=== PATIENT | female | born 1970 | race Caucasian/White ===

== ENCOUNTER 2018-08-19 05:20 | Day surgery (SDC) | payer BC, SELFPAY ==
[2018-08-06 15:29] VITALS: BP 110/71; PULSE 61; RESP 16; TEMP 37.2; O2SAT 100; BMI 22.6
--- NOTE | 2018-08-06 15:48 | SDCEKG_ITS ---
Test Reason : Blood Pressure : / mmHG Vent. Rate : 059 BPM Atrial Rate : 059 BPM P-R Int : 120 ms QRS Dur : 082 ms QT Int : 452 ms P-R-T Axes : 086 085 027 degrees QTc Int : 447 ms Sinus bradycardia Possible Left atrial enlargement Borderline ECG Confirmed by LIZ MATIAS, MILADIS ([id number]), offline editor MIGUEL A PACHECO ([id number]) on 08/11/2018 8:55:30 AM Referred By: Bryant Nathan Confirmed By:MILADIS HILL MD
[2018-08-06 16:19] LABS: Absolute Lymphocyte Count 1.32 X10^3/ul (0.83-4.51); Basophil# 0.02 X10^3/uL; Basophil% 0.4 % (0-1); Eosinophil# 0.05 X10^3/uL; Eosinophils% 1.1 % (0-5); Hematocrit 37.4 % (37-47); Hemoglobin 12.6 g/dl (12.0-15.0); Lymphocyte # 1.32 X10^3/ul (4.0); Lymphocyte % 28.1 % (19-41); Mean Corp Hgb Conc 33.7 g/gl (32-36); Mean Corpuscular Hgb 30.1 pg (27.0-32.0); Mean Corpuscular Volume 89.5 fL (81-99); Monocyte# 0.33 X10^3/uL; Neutrophil # 2.96 X10^3/uL (2.7-7.7); Neutrophil % 63.2 % (47-70); Platelet Count 179 K/mm3 (150-450); RBC Distribution Width SD 42.2 fl (35.1-43.9); Red Blood Count 4.18 M/mm3 (4.2-5.4); White Blood Count 4.7 K/mm3 (4.4-11.0)
[2018-08-06 16:21] LABS: POSITIVE COUNT NO; POSITIVE DIFFERENTIAL NO; POSITIVE MORPHOLOGY NO
[2018-08-06 16:50] LABS: Anion Gap 9 (5-15); BUN 17 mg/dL (7-18); BUN/Creat Ratio 21.3 RATIO (10-20); Calcium,Total 8.8 mg/dL (8.5-10.1); Chloride 108 mmol/L (98-107); EST Glomerular Filtration Rate 82 mL/min (>60); Est Glom Filt Rate - Afr Amer 99 mL/min (>60); Estimated Creatinine Clearance 84.54 ml/min; Glucose 104 mg/dL (74-106); Potassium 3.5 mmol/L (3.5-5.1); Sodium Level 143 mmol/L (136-145)
--- NOTE | 2018-08-14 12:11 | CASEMGMT ---
Call placed to patient to discuss discharge needs after upcoming surgery. Patient plans to return home and will have someone with her for the 1st week post-op. Outpatient physical therapy is set up and patient will have assistance with transportation for the 1st week. Patient has a walker and plans to purchase a shower seat and toilet riser this weekend. There's a bed and bath on the same level per patient. Depending on which entrance patient uses, there are 1 or 9 steps to enter home. Patient reports that she will not be staying overnight unless something drastic happens; informed patient that if she stays overnight, RN-CM will likely follow up for any further discharge needs patient may have. Mechelle Merchant LPN Clinical Support
[2018-08-19] VITALS (8 sets, daily range): BP systolic 95–114; BP diastolic 51–78; PULSE 45–62; RESP 16–18; TEMP 36.2–36.7; O2SAT 96–100; BMI 22.6
[2018-08-19 05:55] LABS: Internal QC Validated? YES +Cl - CLEAR BKGD; Pregnancy, Urine Negative Negative
[2018-08-19] MEDS: Gabapentin 600 MG Tablet PO (06:00)
[2018-08-19] MEDS: Celecoxib 200 MG Capsule 400 MG PO (06:00)
[2018-08-19] MEDS: Acetaminophen 500 MG Tablet 1000 MG PO (06:01)
[2018-08-19 06:05] LABS: Bedside Glucose 70 mg/dL (70-110)
[2018-08-19] MEDS: Magnesium Sulfate 4gm/100mL 4 GM/100 ML IV.SOLN. IV (06:31)
[2018-08-19] MEDS: Scopolamine 1mg/72hr Patch 1 PATCH TD (06:52)
--- NOTE | 2018-08-19 07:15 | RAD_ITS ---
STUDY: X-RAY - PELVIS AND LEFT HIP REASON FOR EXAM: Female, 47 years old. Left total replacement. TECHNIQUE: 5 coned-down intraoperative views of the pelvis and hip. COMPARISON: None. FINDINGS: Intraoperative imaging provided for left total hip placement. RAD/Hip 1 view with Pelvis IMPRESSION: Intraoperative imaging provided for left total hip replacement. Electronically Signed: Parminder Barrera, at 13:27 EDT , Service support ,
[2018-08-19] MEDS: Cefazolin 2 GM in 0.9% Normal Saline 100 ML IV (07:32)
--- NOTE | 2018-08-19 09:32 | PCM.OPRPT ---
Report of Operation Date of Procedure: 08/19/18 Pre-Operative Diagnosis: Left hip posttraumatic osteoarthritis, sequela previous acetabular fracture Post-Operative Diagnosis: Left hip posttraumatic osteoarthritis, sequela previous acetabular fracture Surgery/Procedure Performed:: Conversion previous hip surgery to total hip replacement Description of Surgical Findings:: Stable hip equal leg lengths personal care home administrator: Julio Felix Type of Anesthesia:: General Anesthesiologist: Ronal Mehta Special Medications: 2 g Ancef, 1 g TXA at incision, 1 g TXA closure, 10 mg Decadron, joint cocktail (5 mg Duramorph, 30 mL of 0.5% Ropivicaine, 1000 units of epinephrine, 30 mg of Toradol), 2 g Ancef again at completion of case Specimen's removed: Bony cuts Estimated Blood Loss (mL): 300 mL Fluids Replaced: 1500 L crystalloid Description of Procedure: Components used: 1. Accolade 2 [place] femoral stem size 5 127? 2. Tiffany trident 2 acetabular shell size 54 mm 3. [place] X3 polyethylene E 4. [place] Biolox delta 36mm, +5mm femoral head Brief history operative indications: 47 yo f who failed conservative measures for their hip post traumatic osteoarthritis, post traumatic osteoarthritis sequela from previous left acetabular fracture with open reduction internal fixation. X-rays were consistent with osteoarthritis including joint space narrowing, osteophyte formation and subchondral cysts. She also had previous acetabular hardware. CT scan was done to ensure this would not interfere with surgery. Total hip replacement was discussed with the patient with risks and benefits including but not limited to blood loss, DVTs, PEs, neurovascular damage, dislocation, general risks of anesthesia including loss of life. Patient demonstrated an understanding medical clearance is obtained the patient was consented for surgery. Procedure: On the date of procedure the patient's l hip was marked in the preoperative area. Patient was then taken back to the operating room where anesthesia assumed control of the C-spine and airway and administered anesthetic. Patient was transferred to the operating table and placed in the supine position. The hips were placed at the break of the bed and a sacral bump was placed. The L lower extremity was then prepped out in a sterile fashion using chlorhexidine while the surgeon scrubbed. The PA was vital in the positioning of the patient. Upon reentering the room the L lower extremity was draped in the standard orthopedic fashion and the incision was marked. A timeout was called and everyone agreed upon the side, the site, the procedure be performed, antibody given, and patient's identity. At this time incision was made through skin, subcutaneous tissue, and fat down to fascia. The fascia was then incised and the TFL was retracted laterally. A retractor was placed on the lateral border of the femoral neck. Attention was directed to the inferior portion of the approach and all crossing vessels were identified and appropriately coagulated. A retractor was then placed on the medial portion of the femoral neck. The anterior capsule was then cleared of all soft tissue and then H shaped capsulotomy was made. The retractors were then placed inside the capsule. The femoral neck was identified and a cleanup cut was made. At this time a power corkscrew was used to remove the femoral head. Attention was then turned toward the acetabulum where the soft tissues were appropriately retracted and the acetabulum was sequentially reamed to 54 mm. During acetabular reaming acetabular hardware did not impose upon our surgery. A 54 mm cup was then selected and impacted into place. Acetabular liner was impacted into place and locking mechanism was verified. The position of the acetabular cup was then verified under live fluoroscopy. Attention was then turned to the femur. Soft tissue releases on the medial and lateral femoral neck were appropriately done, the leg was externally rotated and lateralized. A Davis retractor was placed medially and proximally to the greater trochanter this allowed appropriate visualization and exposure of the femoral canal. Ron[place] was then used to remove excess lateral bone. A canal finder and entry broach were used to open the proximal canal. Once we verified we were down the femoral canal we subsequently broached up to a size 5 femur. The appropriate neck was placed in the previously selected head was trialed with a +5 mm neck. Traction was pulled and the hip was reduced with internal rotation. Once it was appropriately reduced and stability was checked. There was minimal shuck, equal leg lengths and appropriate stability with hyperextension and external rotation as well as with 90? flexion and internal rotation. Fluoroscopy was then also used to verify the position of the components and leg lengths using the contralateral side for comparison. The trial components were then dislocated the proximal femur was again exposed and the components were removed from the wound. The final components were verified and opened. The wound was copiously irrigated out with normal saline. The acetabulum was checked for any residual debris. The final components were placed and impacted. Traction and internal rotation were again used to reduce the hip. After adequate reduction the hip remained stable with appropriate leg lengths. The final components were once again checked with live fluoroscopy and were found to be satisfactory. The wound was then copiously irrigated with normal saline once more, and hemostasis was obtained. Closure was then done using #1 Vicryl runner to close the fascia. A 2-0 vicryl interuppted sutures were used to close the subcutaneous skin. A 3-0 Monocryl and Steri-Strips were used for final skin closure. A Silverlon dressing was placed. Patient was awakened by anesthesia and transferred to [facility]. Patient was then transferred to the PACU for recovery. Postoperative plan: Patient will get 1 more dose of antibiotics before discharge. Patient will get physical therapy in the PACU and will be weight-bear as tolerated, and will be discharged home today if meets criteria. Patient will follow up in office in 2 weeks for a wound check and x-rays. Grafts/Implants Used: Tiffany Accolade 2, Trident 2 - Complications No intraoperative complications - Admit VTE Documentation VTE Present on Admission: No VTE Mechan Device Prophylaxis: SCD's, Thigh High KATE Hose VTE Pharm Prophylaxis ordered?: Yes
[2018-08-19] MEDS: Lactated Ringers 1,000 ML 999 ML IV (09:56)
--- NOTE | 2018-08-19 10:35 | RAD_ITS ---
STUDY: X-RAY - PELVIS AND LEFT HIP REASON FOR EXAM: Female, 47 years old. Left hip replacement. TECHNIQUE: 2 views of the pelvis and hip. COMPARISON: Comparison is made with prior examination done earlier today. FINDINGS: Status post left hip replacement. There is good alignment. RAD/Hip Min 2 Views (Portable) IMPRESSION: Status post left hip replacement. Electronically Signed: Parminder Barrera, at 13:31 EDT , Service support ,
[2018-08-19] MEDS: Lactated Ringers 1,000 ML 125 ML IV (11:10)
[2018-08-19] MEDS: oxyCODONE 5 MG Tablet PO (11:50)
[2018-08-19] MEDS: Cefazolin 1 GM/50 ML BAG IV (14:50)
== END 2018-08-19 15:58 | disposition home or self-care (01) ==
LOC: SDC 05:21 → AC 05:21
PROVIDERS: Anesthesiology; Family Provider Family Medicine; PCP Family Medicine; Referring Provider Specialist; Visit Provider Specialist
PROC: (CPT 27284; principal; 2018-08-19 06:50)
DX: M16.52 Unilateral post-traumatic osteoarthritis, left hip (principal); S32.402S Unspecified fracture of left acetabulum, sequela; V89.2XXS Person injured in unspecified motor-vehicle accident, traffic, sequela; Z96.642 Presence of left artificial hip joint; M06.9 Rheumatoid arthritis, unspecified; Z79.899 Other long term (current) drug therapy
CPT/HCPCS: 01214; 27132; 73501; 73502; 76000; 80048; 81025; 82962; 85025; 87077; 87081; 93005; 97162; C1776; J7120; A4216; J2405

== ENCOUNTER → 2022-03-15 | Outpatient (CLI) | payer OTHER, SELFPAY ==
[2022-03-20 16:09] LABS: Red Blood Cell Count Test/G6PD 4.41 x10E6/uL (3.77-5.28)
[2022-03-20 17:31] LABS: G6PD Quant Test 262 (127-427)
== END | disposition home or self-care (01) ==
PROVIDERS: PCP Family Medicine; Referring Provider Internal Medicine Rheumatology; Visit Provider Internal Medicine Rheumatology
DX: M05.79 Rheumatoid arthritis with rheumatoid factor of multiple sites without organ or systems involvement (principal); F32.89 Other specified depressive episodes; Z79.899 Other long term (current) drug therapy
CPT/HCPCS: 36415; 82955

== ENCOUNTER → 2023-11-06 | Outpatient (CLI) | payer OTHER, SELFPAY ==
[2023-11-06 17:36] LABS: Absolute Lymphocyte Count 2.07 X10^3/uL (0.83-4.51); Basophil# 0.06 X10^3/uL; Eosinophil# 0.18 X10^3/uL; Eosinophils% 3.1 % (0-5); Hematocrit 35.8 % (37-47); Hemoglobin 11.4 g/dL (12.0-15.0); Lymphocyte # 2.07 X10^3/ul (0.83-4.51); Lymphocyte % 35.4 % (19-41); Mean Corp Hgb Conc 31.8 g/dL (32-36); Mean Corpuscular Hgb 29.1 pg (27.0-32.0); Mean Corpuscular Volume 91.3 fL (81-99); Mean Platelet Vol. 11.4 fl (6.2-12.0); Monocyte# 0.56 X10^3/uL; Monocyte% 9.6 % (0-10); NRBC Flagged by Analyzer 0 % (0-5); Neutrophil # 2.97 X10^3/uL (2.7-7.7); Neutrophil % 50.7 % (47-70); Platelet Count 218 K/mm3 (150-450); RBC Distribution Width CV 14.7 % (11.6-14.6); RBC Distribution Width SD 49.1 fl (35.1-43.9); Red Blood Count 3.92 M/mm3 (4.2-5.4); White Blood Count 5.9 K/mm3 (4.4-11.0)
[2023-11-06 18:22] LABS: ALB/GLOB Ratio 1.1 RATIO (0.9-2.4); AST(SGOT) 41 U/L (15-37); Alanine Aminotransfer ALT/SGPT 36 U/L (13-56); Albumin, Serum 3.7 g/dL (3.2-5.0); Alkaline Phosphatase 59 U/L (45-117); Anion Gap 3 (5-15); BUN 21 mg/dL (7-18); BUN/Creat Ratio 21.4 RATIO (10-20); Calcium,Total 8.7 mg/dL (8.5-10.1); Chloride 108 mmol/L (98-107); Creatinine, Serum 0.98 mg/dL (0.55-1.02); EST Glomerular Filtration Rate 63 mL/min (>60); Est Glom Filt Rate - Afr Amer 76 mL/min (>60); Globulin 3.4 g/dL (2.2-4.2); Glucose 90 mg/dL (74-106); Potassium 3.8 mmol/L (3.5-5.1); Protein, Total 7.1 g/dL (6.4-8.2); Sodium Level 139 mmol/L (136-145)
== END | disposition home or self-care (01) ==
LOC: MTLAB 16:41
PROVIDERS: PCP Family Medicine; Referring Provider Internal Medicine Rheumatology; Visit Provider Internal Medicine Rheumatology
DX: M05.79 Rheumatoid arthritis with rheumatoid factor of multiple sites without organ or systems involvement (principal); Z79.899 Other long term (current) drug therapy
CPT/HCPCS: 36415; 80053; 85025

== ENCOUNTER → 2024-02-05 | Outpatient (CLI) | payer OTHER, SELFPAY ==
[2024-02-05 17:55] LABS: Absolute Lymphocyte Count 1.82 X10^3/uL (0.83-4.51); Absolute Neutrophil Count 2.8 X10^3/uL (2.0-7.7); Basophil# 0.05 X10^3/uL; Basophil% 0.9 % (0-1); Eosinophil# 0.19 X10^3/uL; Eosinophils% 3.4 % (0-5); Hematocrit 37.2 % (37-47); Hemoglobin 12.2 g/dL (12.0-15.0); Lymphocyte # 1.82 X10^3/ul (0.83-4.51); Mean Corp Hgb Conc 32.8 g/dL (32-36); Mean Corpuscular Hgb 29.7 pg (27.0-32.0); Mean Corpuscular Volume 90.5 fL (81-99); Mean Platelet Vol. 11.7 fl (6.2-12.0); Monocyte# 0.69 X10^3/uL; Monocyte% 12.5 % (0-10); NRBC Flagged by Analyzer 0 % (0-5); Neutrophil # 2.75 X10^3/uL (2.7-7.7); Neutrophil % 49.8 % (47-70); Platelet Count 199 K/mm3 (150-450); RBC Distribution Width SD 42.9 fl (35.1-43.9); Red Blood Count 4.11 M/mm3 (4.2-5.4); White Blood Count 5.5 K/mm3 (4.4-11.0)
[2024-02-05 18:26] LABS: ALB/GLOB Ratio 1.2 RATIO (0.9-2.4); AST(SGOT) 34 U/L (15-37); Alanine Aminotransfer ALT/SGPT 30 U/L (13-56); Albumin, Serum 3.8 g/dL (3.2-5.0); Alkaline Phosphatase 54 U/L (45-117); Anion Gap 4 (5-15); BUN 17 mg/dL (7-18); BUN/Creat Ratio 20.5 RATIO (10-20); Chloride 105 mmol/L (98-107); Creatinine, Serum 0.83 mg/dL (0.55-1.02); EST Glomerular Filtration Rate 76 mL/min (>60); Est Glom Filt Rate - Afr Amer 92 mL/min (>60); Globulin 3.1 g/dL (2.2-4.2); Glucose 88 mg/dL (74-106); Potassium 3.9 mmol/L (3.5-5.1); Protein, Total 6.9 g/dL (6.4-8.2); Sodium Level 138 mmol/L (136-145)
== END | disposition home or self-care (01) ==
PROVIDERS: PCP Family Medicine; Referring Provider Internal Medicine Rheumatology; Visit Provider Internal Medicine Rheumatology
DX: M05.711 Rheumatoid arthritis with rheumatoid factor of right shoulder without organ or systems involvement (principal); Z79.899 Other long term (current) drug therapy
CPT/HCPCS: 36415; 80053; 85025

== ENCOUNTER → 2024-02-12 | Outpatient (CLI) | payer OTHER, SELFPAY ==
[2024-02-16 14:07] LABS: QNTFERON TB Mitogen Value > 10.00 IU/mL (.); QNTFERON TB Nil Value 0.07 IU/mL (.); QNTFERON TB1+ Ag Value 0.06 IU/mL (.); QNTFERON TB2+ Ag Value 0.06 IU/mL (.); QNTIFERON TB Positive Criteria Negative (Negative)
== END | disposition home or self-care (01) ==
PROVIDERS: PCP Family Medicine; Referring Provider Internal Medicine Rheumatology; Visit Provider Internal Medicine Rheumatology
DX: M05.711 Rheumatoid arthritis with rheumatoid factor of right shoulder without organ or systems involvement (principal); Z79.899 Other long term (current) drug therapy
CPT/HCPCS: 36415; 86480

== ENCOUNTER → 2024-06-04 | Outpatient (CLI) | payer BC, SELFPAY ==
[2024-06-04 10:46] LABS: Absolute Lymphocyte Count 2.26 X10^3/uL (0.83-4.51); Absolute Neutrophil Count 4.1 X10^3/uL (2.0-7.7); Basophil# 0.08 X10^3/uL; Basophil% 1.1 % (0-1); Eosinophil# 0.28 X10^3/uL; Eosinophils% 3.8 % (0-5); Hematocrit 36.7 % (37-47); Hemoglobin 12.5 g/dL (12.0-15.0); Lymphocyte # 2.26 X10^3/ul (0.83-4.51); Lymphocyte % 30.7 % (19-41); Mean Corp Hgb Conc 34.1 g/dL (32-36); Mean Corpuscular Hgb 30.6 pg (27.0-32.0); Mean Corpuscular Volume 89.7 fL (81-99); Mean Platelet Vol. 11.5 fl (6.2-12.0); Monocyte# 0.67 X10^3/uL; Monocyte% 9.1 % (0-10); NRBC Flagged by Analyzer 0 % (0-5); Neutrophil # 4.06 X10^3/uL (2.7-7.7); Platelet Count 236 K/mm3 (150-450); RBC Distribution Width SD 43.1 fl (35.1-43.9); Red Blood Count 4.09 M/mm3 (4.2-5.4); White Blood Count 7.4 K/mm3 (4.4-11.0)
[2024-06-04 12:38] LABS: ALB/GLOB Ratio 1.6 RATIO (0.9-2.4); AST(SGOT) 46 U/L (<=31); Alanine Aminotransfer ALT/SGPT 24 U/L (<=34); Albumin, Serum 4.3 g/dL (3.5-5.0); Alkaline Phosphatase 54 U/L (35-104); Anion Gap 11 (5-15); BUN 12 mg/dL (4-19); BUN/Creat Ratio 12.7 RATIO (10-20); Carbon Dioxide 25.6 mmol/L (21.0-32.0); Chloride 103 mmol/L (98-108); Creatinine, Serum 0.95 mg/dL (0.70-1.20); EST Glomerular Filtration Rate 71 (>60); Globulin 2.7 g/dL (2.2-4.2); Glucose 93 mg/dL (70-99); Potassium 3.9 mmol/L (3.3-5.1); Protein, Total 6.9 g/dL (5.9-8.4); Sodium Level 139 mmol/L (133-145); Total Bilirubin 0.33 mg/dL (0.00-1.30)
== END | disposition home or self-care (01) ==
LOC: MTLAB 07:37
PROVIDERS: PCP Family Medicine; Referring Provider Internal Medicine Rheumatology; Visit Provider Internal Medicine Rheumatology
DX: M05.79 Rheumatoid arthritis with rheumatoid factor of multiple sites without organ or systems involvement (principal); M19.041 Primary osteoarthritis, right hand; Z79.899 Other long term (current) drug therapy
CPT/HCPCS: 36415; 80053; 85025

== ENCOUNTER → 2024-07-19 | Outpatient (CLI) | payer BC, SELFPAY ==
[2024-07-22 17:08] LABS: Chlamydia By Nucleic Acid AMP Negative (Negative); Gonococcus By Nucleic Acid AMP Negative (Negative); Trich. Vag By Nucleic Acid AMP Negative (Negative)
== END | disposition home or self-care (01) ==
LOC: LABSPEC 16:13
PROVIDERS: PCP Nurse Practitioner Family; Referring Provider Nurse Practitioner Family; Visit Provider Nurse Practitioner Family
DX: Z12.4 Encounter for screening for malignant neoplasm of cervix (principal)
CPT/HCPCS: 87491; 87591; 88175; G0145

== ENCOUNTER → 2024-07-21 | Outpatient (CLI) | payer BC, SELFPAY ==
[2024-07-21 10:54] LABS: Anion Gap 9 (5-15); BUN 21 mg/dL (4-19); BUN/Creat Ratio 24.9 RATIO (10-20); Calcium,Total 8.7 mg/dL (7.6-11.0); Carbon Dioxide 25.4 mmol/L (21.0-32.0); Chloride 103 mmol/L (98-108); Cholesterol 217 mg/dL (<=200); Creatinine, Serum 0.86 mg/dL (0.70-1.20); EST Glomerular Filtration Rate 81 (>60); Glucose 87 mg/dL (70-99); High Density Lipoprotein 76 mg/dL; Low Density Lipoprotein Calc. 130 mg/dL; Sodium Level 137 mmol/L (133-145); Triglycerides 57 mg/dL; Very Low Density Lipoprotein 11 mg/dL (5-40); cholesterol:hdl ratio screen 2.87
== END | disposition home or self-care (01) ==
LOC: MTLAB 08:10
PROVIDERS: PCP Nurse Practitioner Family; Referring Provider Nurse Practitioner Family; Visit Provider Nurse Practitioner Family
DX: Z13.1 Encounter for screening for diabetes mellitus (principal); Z13.220 Encounter for screening for lipoid disorders
CPT/HCPCS: 36415; 80048; 80061

== ENCOUNTER → 2024-08-26 | Outpatient (CLI) | payer BC, SELFPAY ==
[2024-08-26 17:44] LABS: Absolute Lymphocyte Count 1.78 X10^3/uL (0.83-4.51); Absolute Neutrophil Count 2.2 X10^3/uL (2.0-7.7); Basophil# 0.06 X10^3/uL; Basophil% 1.3 % (0-1); Eosinophil# 0.21 X10^3/uL; Eosinophils% 4.4 % (0-5); Hematocrit 35.7 % (37-47); Hemoglobin 12.1 g/dL (12.0-15.0); Lymphocyte # 1.78 X10^3/ul (0.83-4.51); Lymphocyte % 37.7 % (19-41); Mean Corp Hgb Conc 33.9 g/dL (32-36); Mean Corpuscular Hgb 30.5 pg (27.0-32.0); Mean Corpuscular Volume 89.9 fL (81-99); Mean Platelet Vol. 11.3 fl (6.2-12.0); Monocyte# 0.43 X10^3/uL; Monocyte% 9.1 % (0-10); NRBC Flagged by Analyzer 0 % (0-5); Neutrophil # 2.24 X10^3/uL (2.7-7.7); Neutrophil % 47.5 % (47-70); Platelet Count 224 K/mm3 (150-450); RBC Distribution Width CV 13.6 % (11.6-14.6); RBC Distribution Width SD 45.1 fl (35.1-43.9); Red Blood Count 3.97 M/mm3 (4.2-5.4); White Blood Count 4.7 K/mm3 (4.4-11.0)
[2024-08-26 18:20] LABS: ALB/GLOB Ratio 1.8 RATIO (0.9-2.4); AST(SGOT) 49 U/L (<=31); Alanine Aminotransfer ALT/SGPT 25 U/L (<=34); Albumin, Serum 4.5 g/dL (3.5-5.0); Alkaline Phosphatase 60 U/L (35-104); Anion Gap 11 (5-15); BUN 16 mg/dL (4-19); BUN/Creat Ratio 17.2 RATIO (10-20); Calcium,Total 9.2 mg/dL (7.6-11.0); Carbon Dioxide 25.5 mmol/L (21.0-32.0); Chloride 103 mmol/L (98-108); Creatinine, Serum 0.94 mg/dL (0.70-1.20); EST Glomerular Filtration Rate 72 (>60); Globulin 2.5 g/dL (2.2-4.2); Glucose 96 mg/dL (70-99); Potassium 3.9 mmol/L (3.3-5.1); Sodium Level 140 mmol/L (133-145); Total Bilirubin 0.36 mg/dL (0.00-1.30)
== END | disposition home or self-care (01) ==
LOC: MTLAB 15:13
PROVIDERS: PCP Nurse Practitioner Family; Referring Provider Internal Medicine Rheumatology; Visit Provider Internal Medicine Rheumatology
DX: M05.79 Rheumatoid arthritis with rheumatoid factor of multiple sites without organ or systems involvement (principal); Z79.899 Other long term (current) drug therapy
CPT/HCPCS: 36415; 80053; 85025

== ENCOUNTER → 2024-08-26 | Outpatient (CLI) | payer BC, SELFPAY ==
--- NOTE | 2024-08-26 13:06 | BI_ITS ---
EXAM: SCRN MAMM (CAD)W/SANGITA BILAT DATE: 08/26/2024 CLINICAL HISTORY: F, Age 54 y/o , SCREENING Mother with history of breast cancer. TECHNIQUE: SCRN MAMM (CAD)W/SANGITA BILAT COMPARISON: Prior exam(s) dated outside examination dated May 12, 2023.. FINDINGS: TISSUE DENSITY: The breasts are extremely dense, which lowers the sensitivity of mammography. Bilateral Breast Mammographic Findings: No significant masses, calcifications or other abnormalities are identified. No suspicious masses, areas of developing architectural distortion, or suspicious calcifications. There has been no significant interval change. BI/SCRN MAMM (CAD)W/SANGITA BILAT IMPRESSION: Stable examination. OVERALL FINAL ASSESSMENT BI-RADS 1: NEGATIVE. RECOMMEND ANNUAL MAMMOGRAPHIC SCREENING. RECOMMENDATION: Routine annual follow-up in 1 Year A letter with findings and recommendations will be mailed to the patient. Reading Location: [id number]
--- OUTSIDE RECORDS SUMMARY | 2024-08-26 21:43 | XMS RPT_ITS | CCD ---
Author Organization [facility] Care Team Providers Care Firefighter Type One Name Role Phone Tasneem Johns Primary Care Provider BRISEIDA WALDEN Referring Unavailable TASNEEM JOHNS Primary Care Unavailable TASNEEM JOHNSER Primary Care Unavailable ALIESUGEYEE Attending Unavailable NAT TASNEEM ODALYS Primary Care Unavailable ALIE BRISEIDA Referring Unavailable ARIELLAIFF, TASNEEM S Consulting Unavailable MAUREEN REYES DR Admitting Unavailable MAUREEN REYES DR Attending Unavailable MAUREEN REYES DR Primary Care Unavailable PROVIDER, UNKNOWN Consulting Unavailable ARIELLAIFF, TASNEEM S Consulting Unavailable JESSICA NICHOLE Admitting Unavailable JESSICA NICHOLE Attending Unavailable JESSICA NICHOLE Primary Care Unavailable PROVIDER, UNKNOWN Consulting Unavailable JOLENEGREGORIA TAPIAINE Admitting Unavailable JOLLIFF, TASNEEM S Consulting Unavailable JOLENEGREGORIA TAPIAINE Attending Unavailable JOLENE, SAI Primary Care Unavailable PROVIDER, UNKNOWN Consulting Unavailable NAT, TASNEEM S Consulting Unavailable JESSICA NICHOLE MD Primary Care Unavailable JESSICA NICHOLE MD Admitting Unavailable JESSICA NICHOLE MD Attending Unavailable PROVIDER, UNKNOWN Consulting Unavailable NAT TASNEEM S Consulting Unavailable JESSICA NICHOLE MD Primary Care Unavailable JESSICA NICHOLE MD Admitting Unavailable JESSICA NICHOLE MD Attending Unavailable PROVIDER, UNKNOWN Consulting Unavailable NAT, TASNEEM S Consulting Unavailable JESSICA NICHOLE MD Attending Unavailable JESSICA NICHOLE MD Primary Care Unavailable JESSICA NICHOLE MD Admitting Unavailable PROVIDER, UNKNOWN Consulting Unavailable Dr. Tasneem Johns MD Primary Care Provider [phone] Dr. Jessica Nichole MD Attending Provider Dr. Jessica Nichole MD Referring Provider Nat MATIAS Dr. Tasneem S Primary Care Provider Dionisio MATIAS, Dr. Lopez Attending Provider Dionisio MATIAS, Dr. Lopez Referring Provider Nat MATIAS, Dr. Tasneem Wesley Referring Provider Evette MATIAS, Dr. Vásquez Attending Provider July WRAPPER OPERATOR-C, Mary Primary Care Provider July WRAPPER OPERATOR-C, Mary Attending Provider July WRAPPER OPERATOR-C, Mary Referring Provider Jolliff, Tasneem S Primary Care Unavailable Vellanki, Jessica Attending Unavailable Vellanki, Jessica Referring Unavailable Vellanki, Jessica Referring Unavailable Jolliff, Tasneem S Primary Care Unavailable Vellanki, Jessica Attending Unavailable Jolliff, Tasneem S Referring Unavailable Jolliff, Tasneem S Primary Care Unavailable Fahad Alas Attending Unavailable July, Mary Attending Unavailable July, Mary Referring Unavailable July, Mary Primary Care Unavailable Vellanki, Jessica Referring Unavailable Jolliff, Tasneem S Primary Care Unavailable Vellanki, Jessica Attending Unavailable Vellanki, Jessica Referring Unavailable Jolliff, Tasneem S Primary Care Unavailable Vellanki, Jessica Attending Unavailable Vellanki, Jessica Attending Unavailable July, Mary Primary Care Unavailable Vellanki, Jessica Referring Unavailable July, Mary Primary Care Unavailable July, Mary Attending Unavailable July, Mary Referring Unavailable July, Mary Attending Unavailable July, Mary Referring Unavailable July, Mary Primary Care Unavailable Medications Current Medications Medication Drug Class(es) Dates Sig (Normalized) Sig (Original) Amino Acids (3 sources) Start: 08-06-2018 Amino Acids (C omplete Amino Acid Mix) 200 GM powder Active 200 g PO DAILY August 06, 2018 12:00am Start: 08-06-2018 take 200 g by mouth once daily Amino Acids (Complete Amino Acid Mix) 200 GM powder Active 200 GM PO DAILY August 05, 2018 11:00pm ascorbic acid 1000 mg oral tablet (7 sources) Vitamin C Start: 08-06-2018 End: 06-11-2022 take 1 tablet by mouth once daily Ascorbic Acid (Vitamin C) (Vitamin C) 1,000 MG tablet Active 1000 mg PO DAILY August 06, 2018 12:00am Comment on above: Take 1,000 mg by yas th once daily. cholecalciferol 0.125 mg oral tablet (10 sources) Vitamin D Start: 08-06-2018 take 1 tablet by mouth once daily Cholecalciferol (Vitamin D3) 5,000 UNIT tablet Active 5000 U PO DAILY August 06, 2018 12:00am Cholecalciferol, Vitamin D3, 50 mcg (2,000 unit) cap Take by mouth. 0 Active Cholecalciferol, Vitamin D3, (VITAMIN D-3) 2,000 unit cap Take by mouth. 0 Active Comment on above: Take by mouth. Collagen Hydrosyate (3 sources) Start: 08-06-2018 take 10 g by mouth once daily Collagen Hydrosyate Active 10 g PO DAILY August 06, 2018 12:00am Start: 08-06-2018 take 10 g by mouth once daily Collagen Hydrosyate Active 10 GM PO DAILY August 05, 2018 11:00pm fluconazole 150 mg oral tablet (1 source) Azole Antifungal Start: 06-11-2022 End: 06-11-2022 take 1 tablet by mouth once fluconazole (DIFLUCAN) 150 mg tablet Take 1 tablet by mouth one time only for 1 dose. 1 tablet 0 06/11/2022 06/11/2022 Active Comment on above: Take 1 tablet by [facility] one time only for 1 dose. hydroxychloroquine sulfate 200 mg oral tablet (10 sources) Antimalarial, Antirheumatic Agent Start: 08-06-2018 Hydroxychloroquine (Plaquenil) 200 MG tablet Active 1.5 {tbl} PO DAILY August 06, 2018 12:00am Start: 08-06-2018 take 1.5 tablets by mouth once daily Hydroxychloroquine (Plaquenil) 200 MG tablet Active 1.5 TABLET PO DAILY August 05, 2018 11:00pm hydrOXYchloroQUI NE (PLAQUENIL) 200 mg tablet Take by mouth twice daily. 0 Active Comment on above: Take by mouth twice daily. meloxicam 15 mg oral tablet (10 sources) Nonsteroidal Anti-inflammatory Drug Start: 11-15-19 take 1 tablet by mouth once daily Meloxicam (Mobic) 15 MG tablet Active 15 mg PO DAILY August 06, 2018 12:00am nitrofurantoin, macrocrystals 25 mg / nitrofurantoin, monohydrate 75 mg oral capsule (1 source) Nitrofuran Antibacterial Start: 06-22-19 End: 06-29-19 take 1 capsule by mouth twice daily nitrofurantoin monohydrate and macrocrystal (MACROBID) 100 mg capsule Take 1 capsule by mouth twice daily for 7 days. 14 capsule 0 06/21/2022 06/28/2022 Active Comment on above: Take 1 capsule by mo ut twice daily for 7 days. Longs-3 Fatty Acids (1 source) Start: 08-07-19 take 1200 mg by mouth twice daily Longs-3 Fatty Acids Active 1200 MG PO TWICE A DAY August 05, 2018 11:00pm Longs-3 Fatty Acids 1,000 MG capsule (2 sources) Start: 08-07-19 take 1 capsule by mouth twice daily Longs-3 Fatty Acids 1,000 MG capsule Active 1200 mg PO TWICE A DAY August 06, 2018 12:00am Vitamin B Complex (Vitamins B Complex) 1 EACH capsule (3 sources) Start: 08-07-19 take 1 capsule by mouth once daily Vitamin B Complex (Vitamins B Complex) 1 EACH capsule Active 1 NMA PO DAILY August 06, 2018 12:00am Start: 08-06-2018 take 1 capsule by [facility] once daily Vitamin B Complex (Vitamins B Complex) 1 EACH capsule Active 1 EACH PO DAILY August 05, 2018 11:00pm Completed/Discontinued Medications Medication Drug Class(es) Dates Sig (Normalized) Sig (Original) 1 ml abatacept 125 mg/ml auto-injector (10 sources) Selective T Cell Costimulation Modulator Start: 05-25-2021 End: 07-09-2024 Abatacept (Orencia Clickject) 125 mg/mL auto-injector Discontinued 125 mg SC May 25, 2021 12:00am July 09, 2024 4:01pm Start: 05-14-2021 ORENCIA CLICKJ ECT 125 mg/mL 1 ml etanercept 50 mg/ml auto-injector (7 sources) Tumor Necrosis Factor [place] Start: 08-06-2018 End: 05-25-2021 inject 50 mg by subcutaneous injection once Etanercept (Enbrel) 50 MG/ML cartridge Discontinued 50 mg SQ MO August 06, 2018 12:00am May 25, 2021 4:03pm Start: 08-06-2018 End: 05-25-2021 inject 50 mg by subcutaneous injection once Etanercept (Enbrel) 50 MG/ML cartridge Discontinued 50 MG SQ MO August 05, 2018 11:00pm May 25, 2021 3:03pm End: 06-11-2022 Etanercept (ENBREL) 50 mg/mL (0.98 mL) injection Inject subcutaneously. 0 06/11/2022 Discontinued Comment on above: Inject subcutaneousl y. MEDICATION, NON-DATABASE (7 sources) MEDICATION, NON-DATABASE Curamin 0 Active Comment on above: Curamin potassium gluconate 2.5 meq oral tablet (3 sources) Start: 08-07-19 End: 07-10-19 take 1 tablet by mouth once daily Potassium Gluconate 99 MG tablet Discontinued 99 mg PO DAILY August 06, 2018 12:00am July 09, 2024 4:00pm predniSONE 10 mg oral tablet (3 sources) Start: 08-07-19 End: 07-10-19 Prednisone 10 MG tablet Discontinued 10 mg PO NEEDED as needed for FOR FLARES August 06, 2018 12:00am July 09, 2024 4:00pm thyroid (half-way) 30 mg oral tablet (4 sources) take 1 tablet by mouth once daily WRAPPER OPERATOR THYROID 30 mg tablet Take 30 mg by mouth once daily. 0 Active Comment on above: Take 30 mg by mouth once daily. VITAMIN B COMPLEX ORAL (7 sources) VITAMIN B COMPLE X ORAL Take 500 mg by mouth. 0 Active Comment on above: Take 500 mg by mouth . Problems Active Problems Problem Classification Problem Date Documented Date Episodic/Chronic Anxiety disorders (7 sources) Anxiety; Translations: [Anxiety disorder, unspecified] Onset: 02-14-2016 02-14-2016 Chronic Immunizations and screening for infectious disease (3 sources) Patient encounter status; Translations: [Encounter for screening for COVID-19] 05-25-2021 Episodic Mood disorders (7 sources) Depressive disorder; Translations: [Depression] Onset: 02-14-2016 02-14-2016 Chronic Nonmalignant breast conditions (1 source) Breast finding ; Translations: [Dense breast tissue] 05-12-2023 Episodic Other aftercare (1 source) Other termite helper (current) drug therapy; Translations: [Other termite helper (current) drug therapy] Onset: 07-21-2024 Episodic Other eye disorders (2 sources) Dermatochalasis of right upper eyelid; Translations: [Dermatochalasis of both upper eyelids] 07-09-2024 Episodic Other eye disorders (2 sources) Ptosis of bilateral eyebrows; Translations: [Brow ptosis, bilateral] 07-09-2024 Episodic Comment on above: Very subtle, in a de cent position Other female genital disorders (1 source) Vaginal irritation; Translations: [Other specified noninflammatory disorders of vagina] Episodic Other screening for suspected conditions (not mental disorders or infectious disease) (10 sources) Mammography abnormal; Translations: [Other abnormal and inconclusive findings on diagnostic imaging of breast] Onset: 06-11-2022 Episodic Rheumatoid arthritis and related disease (10 sources) Rheumatoid arthritis; Translations: [Rheumatoid arthritis, unspecified] Onset: 02-14-2016 02-14-2016 Chronic Unclassified (1 source) Dense breast tissue; Translations: [Dense breast tissue] Onset: 05-12-2023 Past or Other Problems Problem Classification Problem Date Documented Date Episodic/Chronic Genitourinary symptoms and ill-defined conditions (2 sources) Dysuria; Translations: [Dysuria] Onset: 06-21-2022 Episodic Mycoses (2 sources) Candidiasis of mouth; Translations: [Candidal stomatitis] Onset: 06-11-2022 Episodic Other female genital disorders (1 source) Other specified noninflammatory disorders of vagina; Translations: [Vaginal irritation] Onset: 06-11-2022 Episodic Results Test Name Value Interpretation Reference Range Facility PAP I-G CT/NG/T RF HPVon ADEQ Comment Normal . [facility] Comment on above: Order Comment: Speci men Comment: [id number] Specimen Comment: No. of containers..01 ThinPrep Vial Result Comment: Sati sfactory for evaluation. No endocervical component is identified. Performed By: #### L 7400.0325 #### [facility] [address] [place], [address] CHLAMY,NUC ACID Negative Normal Negative [facility] Comment on above: Order Comment: Speci men Comment: [id number] Specimen Comment: No. of containers..01 ThinPrep Vial Performed By: #### L 7400.0325 #### [facility] [address] [place], [address] COMM . Normal . [facility] Comment on above: Order Comment: Speci men Comment: [id number] Specimen Comment: No. of containers..01 ThinPrep Vial Performed By: #### L 7400.0325 #### [facility] [address] [place], [address] COMMENT Comment Normal . [facility] Comment on above: Order Comment: Speci men Comment: [id number] Specimen Comment: No. of containers..01 ThinPrep Vial Result Comment: This liquid based ThinPrep(R) pap test was screened with the use of an image guided system. Performed By: #### L 7400.0325 #### [facility] [address] [place], [address] DIAG Comment Normal . [facility] Comment on above: Order Comment: Speci men Comment: [id number] Specimen Comment: No. of containers..01 ThinPrep Vial Result Comment: NEGA TIVE FOR INTRAEPITHELIAL LESION OR MALIGNANCY. Performed By: #### L 7400.0325 #### [facility] [address] [place], [address] GC BY NUC ACID Negative Normal Negative [facility] Comment on above: Order Comment: Speci men Comment: [id number] Specimen Comment: No. of containers..01 ThinPrep Vial Performed By: #### L 7400.0325 #### [facility] [address] [place], [address] PAPSMR Comment Normal . [facility] Comment on above: Order Comment: Speci men Comment: [id number] Specimen Comment: No. of containers..01 ThinPrep Vial Result Comment: The Pap smear is a screening test designed to aid in the detection of premalignant and malignant conditions of the uterine cervix. It is not a diagnostic procedure and should not be used as the sole means of detecting cervical cancer. Both false-positive and false-negative reports do occur. Performed By: #### L 7400.0325 #### [facility] [address] [place], [place], [address] PERFORM Comment Normal . [facility] Comment on above: Order Comment: Speci men Comment: [id number] Specimen Comment: No. of containers..01 ThinPrep Vial Result Comment: Dilma Vergara, Mother Superior (ASCP) Performed By: #### L 7400.0325 #### [facility] [address] [place], [place], [id number] TRICH VAG YURY Negative Normal Negative [facility] Comment on above: Order Comment: Speci men Comment: [id number] Specimen Comment: No. of containers..01 ThinPrep Vial Result Comment: Perf ormed at: WB - [facility] [address] [id number] Mapping Editor: Kristen Acosta MD, Phone: [phone] Performed at: =G - [facility] [address] [id number] Mapping Editor: Kristen Acosta MD, Phone: [phone] Performed By: #### L 7400.0325 #### [facility] [address] [place], [place], [id number] Anion gap in Serum or Plasma Ordered By: Mary Mcdowell on 07-21-2024 Anion gap [Moles/Vol] 9 mmol/L 07-15 [facility] BUN/creatinine ratioOrdered By: Mary Mcdowell on 07-21-2024 Urea nitrogen/Creatinine [Mass ratio] 24.9 mg/mg High 12-20 [facility] Basic Metabolic Profile (BMP )on 07-21-2024 BUN/CRE 24.9 RATIO High 12-20 [facility] Comment on above: Order Comment: Order Date: 07/19/24 Order Info: 0667-1 - BMP Order Info: [id number] - LIPID Performed By: #### L 500.4100, L500.2500 #### [facility] [address] [place], [address] Calcium [Mass/Vol] 8.7 mg/dL Normal 7.6-11.0 [facility] Comment on above: Order Comment: Order Date: 07/19/24 Order Info: 0667- - BMP Order Info: [id number] - LIPID Performed By: #### L 500.4100, L500.2500 #### [facility] [address] [place], [address] Chloride [Moles/Vol] 103 mmol/L Normal 98-108 [facility] Comment on above: Order Comment: Order Date: 07/19/24 Order Info: 0667- - BMP Order Info: [id number] - LIPID Performed By: #### L 500.4100, L500.2500 #### [facility] [address] [place], [address] CO2 [Moles/Vol] 25.4 mmol/L Normal 21.0-32.0 [facility] Comment on above: Order Comment: Order Date: 07/19/24 Order Info: 0667- - BMP Order Info: [id number] - LIPID Performed By: #### L 500.4100, L500.2500 #### [facility] [address] [place], [address] Creatinine [Mass/Vol] 0.86 mg/dL Normal 0.70-1.20 [facility] Comment on above: Order Comment: Order Date: 07/19/24 Order Info: 0667- - BMP Order Info: [id number] - LIPID Performed By: #### L 500.4100, L500.2500 #### [facility] [address] [place], [address] GAP 9 Normal 5-15 [facility] Comment on above: Order Comment: Order Date: 07/19/24 Order Info: 06 - BMP Order Info: [id number] - LIPID Performed By: #### L 500.4100, L500.2500 #### [facility] [address] [place], [address] GFR/1.73 sq M.predicted among non-blacks MDRD (S/P/Bld) [Vol rate/Area] 81 mL/min/{1.73_m2} Normal >60 [facility] Comment on above: Order Comment: Order Date: 07/19/24 Order Info: [id number] - BMP Order Info: [id number] - LIPID Result Comment: mL/m in/1.73m2 CKD-EPI Creatinine Equation (2020) Performed By: #### L 500.4100, L500.2500 #### [facility] [address] [place], [address] Glucose [Mass/Vol] 87 mg/dL Normal 70-99 [facility] Comment on above: Order Comment: Order Date: 07/19/24 Order Info: 06 - BMP Order Info: [id number] - LIPID Performed By: #### L 500.4100, L500.2500 #### [facility] [address] [place], [address] Potassium [Moles/Vol] 4.0 mmol/L Normal 3.3-5.1 [facility] Comment on above: Order Comment: Order Date: 07/19/24 Order Info: 06 - BMP Order Info: [id number] - LIPID Performed By: #### L 500.4100, L500.2500 #### [facility] [address] [place], [address] Sodium [Moles/Vol] 137 mmol/L Normal 133-145 [facility] Comment on above: Order Comment: Order Date: 07/19/24 Order Info: 0667- - BMP Order Info: [id number] - LIPID Performed By: #### L 500.4100, L500.2500 #### [facility] [address] [place], [place], [address] Urea nitrogen [Mass/Vol] 21 mg/dL High 4- [facility] Comment on above: Order Comment: Order Date: 07/19/24 Order Info: 0667-1 - BMP Order Info: [id number] - LIPID Performed By: #### L 500.4100, L500.2500 #### [facility] [address] [place], [address] Calculated very low density lipoprotein (VLDL) cholesterol measurementOrdered By: Mary Mcdowell on 07-21-2024 Calculated very low density lipoprotein (VLDL) cholesterol measurement 11 mg/dL 5-40 [facility] Carbon dioxide, total [Moles /volume] in Central venous bloodOrdered By: Mary Mcdowell on 07-21-2024 CO2 [Moles/Vol] 25.4 mmol/L 21.0-32.0 [facility] Chloride assayOrdered By: Clark Mcdowell on 07-21-2024 Chloride [Moles/Vol] 103 mmol/L 98-108 [facility] Glomerular filtration rate ( GFR) estimation/1.73 sq m using serum, plasma, or whole bOrdered By: Mary Mcdowell on 07-21-2024 GFR/1.73 sq M.predicted among non-blacks MDRD (S/P/Bld) [Vol rate/Area] 81 mL/min/{1.73_m2} >60 [facility] Comment on above: mL/min/1.73m2 CKD-EP I Creatinine Equation (2020) LDL calc ser/plasOrdered By: Mary Mcdowell on 07-21-2024 Cholesterol in LDL [Mass/Vol] 130 mg/dL [facility] Comment on above: Xeaxwmlkhe=480-911 m g/dL & Higher Kkiz=939 mg/dL or greater Lipid Profileon 07-21-2024 CHOL:HDL 2.87 Normal [facility] Comment on above: Order Comment: Order Date: 07/19/24Order Info: [id number] - BMPOrder Info: [id number] - LIPID Performed By: #### L 500.4050, L100.0100 #### [facility] [address] [place], [address] Cholesterol [Mass/Vol] 217 mg/dL High <=200 [facility] Comment on above: Order Comment: Order Date: 07/19/24Order Info: 0667-1 - BMPOrder Info: [id number] - LIPID Result Comment: Chol esterol level, Desirable <200 mg/dL Borderline high cholesterol 200-239 mg/dL High cholesterol >=240 mg/dL Recommendations of the NCEP Adult Treatment Panel for the following risk-cutoff thresholds for the [place] population. Performed By: #### L 500.4050, L100.0100 #### [facility] [address] [place], [address] Cholesterol in HDL [Mass/Vol] 76 mg/dL Normal [facility] Comment on above: Order Comment: Order Date: 07/19/24Order Info: 06- - BMPOrder Info: [id number] - LIPID Result Comment: Gracie onal Cholesterol Education Program (NCEP) guidelines: <40 mg/dL: Low HDL-cholesterol (major risk factor for CHD) >= 60 mg/dL: High HDL-cholesterol (negative risk factor for CHD) HDL-cholesterol is affected by a number of factors, e.g. smoking, exercise, hormones, sex and age. Performed By: #### L 500.4050, L100.0100 #### [facility] [address] [place], [address] Cholesterol in LDL [Mass/Vol] 130 mg/dL Normal [facility] Comment on above: Order Comment: Order Date: 07/19/24Order Info: 0667-1 - BMPOrder Info: [id number] - LIPID Result Comment: Bord zfhsfp=664-481 mg/dL Higher Xssq=453 mg/dL or greater Performed By: #### L 500.4050, L100.0100 #### [facility] [address] [place], [address] Cholesterol in VLDL [Mass/Vol] 11 mg/dL Normal 5-40 [facility] Comment on above: Order Comment: Order Date: 07/19/24Order Info: [id number] - BMPOrder Info: [id number] - LIPID Performed By: #### L 500.4050, L100.0100 #### [facility] [address] [place], [address] Triglyceride [Mass/Vol] 57 mg/dL Normal [facility] Comment on above: Order Comment: Order Date: 07/19/24Order Info: [id number] - BMPOrder Info: [id number] - LIPID Result Comment: The drugs N-Acetylcysteine and Metamizole may falsely depress this assay. Normal range: <150 mg/dL Borderline High: 150-199 mg/dL High: 200-499 mg/dL Very High: >500 mg/dL Performed By: #### L 500.4050, L100.0100 #### [facility] [address] [place], [address] Potassium measurement (mass/ volume)Ordered By: Mary Mcdowell on 07-21-2024 Potassium (Unsp spec) [Mass/Vol] 4.0 mmol/L 3.3-5.1 [facility] Screening total cholesterol/ high density lipoprotein (HDL) cholesterol ratioOrdered By: Mary Mcdowell on 07-21-2024 Cholesterol.total/Cho lesterol in HDL [Mass ratio] 2.87 {ratio} [facility] Serum creatinine measurement (mass/volume)Ordered By: Mary Mcdowell on 07-21-2024 Creatinine [Mass/Vol] 0.86 mg/dL 0.70-1.20 [facility] Serum glucose measurement (m ass/volume)Ordered By: Mary Mcdowell on 07-21-2024 Glucose [Mass/Vol] 87 mg/dL 70-99 [facility] Serum or plasma calcium abdoul urement (mass/volume)Ordered By: Mary Mcdowell on 07-21-2024 Calcium [Mass/Vol] 8.7 mg/dL 7.6-11.0 [facility] Serum or plasma cholesterol in HDL measurement (mass/volume)Ordered By: Mary Mcdowell on 07-21-2024 Cholesterol in HDL [Mass/Vol] 76 mg/dL >40 [facility] Comment on above: National Cholesterol Education Program (NCEP) guidelines:<40 mg/dL: Low HDL-cholesterol (major risk factor for CHD)>= 60 mg/dL: High HDL-cholesterol (negative risk factor for CHD)HDL-cholesterol is affected by a number of factors, e.g. smoking, exercise, hormones, sex and age. Serum or plasma cholesterol measurement (mass/volume)Ordered By: Mary Mcdowell on 07-21-2024 Cholesterol [Mass/Vol] 217 mg/dL High <201 [facility] Comment on above: Cholesterol level, D esirable <200 mg/dLBorderline high cholesterol 200-239 mg/dLHigh cholesterol >=240 mg/dLRecommendations of the NCEP Adult Treatment Panel for the following risk-cutoff thresholds for the [place] population. Serum or plasma urea nitroge n measurement (mass/volume)Ordered By: Mary Mcdowell on 07-21-2024 Urea nitrogen [Mass/Vol] 21 mg/dL High 4-19 [facility] Sodium levelOrdered By: Mary Mcdowell on 07-21-2024 Sodium [Moles/Vol] 137 mmol/L 133-145 [facility] Triglycerides measurementOrd ered By: Mary Mcdowell on 07-21-2024 Triglyceride [Mass/Vol] 57 mg/dL <199 [facility] Comment on above: The drugs N-Acetylcy steine and Metamizole may falsely depress this assay. Normal range: <150 mg/dLBorderline High: 150-199 mg/dLHigh: 200-499 mg/dLVery High: >500 mg/dL Cervical or vagninal specime n microscopic examination by cytology stain (reported asOrdered By: Mary Mcdowell on 07-19-2024 Cytology report Cyto stain Doc (Cvx/Vag) Comment . [facility] Comment on above: The Pap smear is a s creening test designed to aid in thedetection of premalignant and malignant conditions of theuterine cervix. It is not a diagnostic procedure andshould not be used as the sole means of detecting cervicalcancer. Both false-positive and false-negative reports dooccur. Laboratory - CytologyOrdered By: Mary Mcdowell on 07-19-2024 [facility] Cyto stain Nom (Cvx/Vag) [ID] Comment . [facility] Comment on above: Katarina hull, [facility] (ASCP) Laboratory - Miscellaneous t estsOrdered By: Mary Mcdowell on 07-19-2024 Service comment (Unsp spec) [Interp] . . [facility] Neisseria gonorrhoeae nuclei c acid detection by amplified probe techniqueOrdered By: Mary Mcdowell on 07-19-2024 N. gonorrhoeae DNA YURY+probe Ql (Unsp spec) Negative Negative [facility] No Panel InformationOrdered By: Mary Mcdowell on 07-19-2024 Pap Smear Specimen Adequacy Comment . [facility] Comment on above: Satisfactory for sterling luation. No endocervical component is identified. Trichomonas vaginalis detect ion by nucleic acid amplificationOrdered By: Mary Mcdowell on 07-19-2024 C. trachomatis DNA YURY+probe Ql (Unsp spec) Negative Negative [facility] Comment on above: *Additional results available. Contact laboratory/see report*Performed at: - [facility] [address] [id number] Director: Kristen Acosta MD, Phone: [phone] at: = - [facility] [address] [id number] Director: Kristen Acosta MD, Phone: [phone] Plastic Surgery Visit Report on 07-09-2024 Plastic Surgery Visit Report [facility] Plastic Reconstructive Surgery [address] [place] [address], [address] [place] [address] OFFICE VISIT Date of Service: 07/09/24 MR#: [id number] Acct: [id number] Name: ROSE RYAN Rep #: [id number] : 1970 Provider: Dr. Fahad Alas MD Age/Sex: 53/F Location: [facility] Status: Signed Intake Vital Signs 05/25/21 16:00 07/09/24 16:01 Height 5 ft 8 in Weight: 148 lb BP 134/87 H Blood Pressure Location Rt brachial Position Sitting Respiration 18 Pulse 58 L Pulse Source Monitor Pulse Oximetry (%) 98 Intake Visit Reasons: UPPER BLEPH CONSULT Chief Complaint: upper bleph consult Is patient in pain?: No Allergies No Known Allergies Allergy (Verified 07/09/24 16:00) Medications ???Medication ???Instructions ???Recorded ???Confirmed ???Type Collagen Hydrosyate 10 g PO DAILY SUPPLEMENT 08/06/18 07/09/24 History amino acids 82 gram-328 kcal/100 200 g PO DAILY SUPPLEMENT 08/06/18 07/09/24 History gram oral powder (Complete Amino Acid Mix) ascorbic acid (vitamin C) 1,000 mg 1,000 mg PO DAILY SUPPLEMENT 08/1907/09/24 History tablet (Vitamin C) cholecalciferol (vitamin D3) 125 5,000 unit PO DAILY SUPPLEMENT 08/1907/09/24 History mcg (5,000 unit) tablet hydroxychloroquine 200 mg tablet 1.5 tab PO DAILY RA 08/06/1807/09 History (Plaquenil) meloxicam 15 mg tablet (Mobic) 15 mg PO DAILY RA 08/06/18 5 History omega-3 fatty acids 1,000 mg 1,200 mg PO BID SUPPLEMENT 9 07/09/24 History capsule vitamin B complex (Vitamins B 1 ea PO DAILY SUPPLEMENT 08/06/18 07/09/24 History Complex capsule) [facility] Medical History Arthritis Surgical History History of hip replacement Family History Other Breast cancer Hypertension Social History Smoking Status: Never smoker HPI UPPER BLEPH CONSULT Details: Rose Ryan is a delightful 53-year-old female with past medical history of rheumatoid arthritis (currently on Plaquenil, meloxicam and ORENCIA (ABATACEPT)) who presents today for upper eyelid blepharoplasty consultation. Reports that she has trouble seeing upwards and laterally without moving her neck secondary to upper eyelid skin draping over her eyelids. She notices this especially at the end of the day, but she does not have any eyelid fatigue or fatigue with globe movements or hoarseness at the end of the day. She does feel like she uses her forehead a lot to help raise her eyebrows so she can see better. Patient is not a smoker. No past medical history of any eye surgery. No personal or family history of bleeding or clotting problems. She does not have a history of thyroid eye disease or any such problems. She has dry eyes reportedly only when she is in [employer] (for some reason her eyes become dry in the store, but otherwise she does not have dry eyes). Exam Details Pupils: PERRL EOM: EOM intact bilaterally Forehead: Small amount of chronic frontalis use to overcome dermatochalasis/brow ptosis. I had her close her eyes, relax her forehead, and then open her eyes again and there was a slightly worsening of the visual field obstruction. Eyebrows: Just above the orbital rim bilaterally with just slight ptosis. Eyelids: * MRD 1 was 5 mm * Good levator function (approximately 14 mm) * No lagophthalmos * Snap back test: Not tested * Upper lid dermatochalasis bilaterally, obstructing vertical gaze bilaterally secondary to the skin. The skin is hanging over the eyelashes and the lateral portions of eyelid margin. Coding Level of Care Code Off vis,new,level 3 Diagnoses Dermatochalasis of both upper eyelids H02.831; H02.834 Brow ptosis, bilateral H57.813 Assessment and Plan (No Qualifiers) Assessment and Plan (1) Dermatochalasis of both upper eyelids: Status: Acute Plan: Patient has significant upper eyelid skin excess. Recommending skin only upper eyelid blepharoplasty. I talked to the patient extensively about the risks of this surgery, including bleeding, infection, damage to surrounding structures, poor scaring, lagophthalmos, blinking problems, asymmetries (discussed existing asymmetries including eyelid crease asymmetries and likelihood of asymmetries postoperatively), worsening of dry eyes, surgical site dehiscence and wound formation, need for wound care, need for repeat operations, failure to obtain the desired result, DVT/PE, and the risks of anesthesia including , including stroke (from low blood pressure/ischemia or clot). The benefits and alternatives of the upper eyelid blepharoplasty surgery were also dis (more content not included)... Normal [facility] Absolute lymphocyte countOrd ered By: Jessica Nichole on 06-04-2024 Lymphocytes Auto (Unsp spec) [#/Vol] 2.26 10*3/uL 0.83-4.51 [facility] Absolute neutrophil countOrd ered By: Jessica Nichole on 06-04-2024 Neutrophils (Bld) [#/Vol] 4.1 10*3/uL 2.0-7.7 [facility] Anion gap in Serum or Plasma Ordered By: Jessica Nichole on 06-04-2024 Anion gap [Moles/Vol] 11 mmol/L 5-15 [facility] Automated lymphocyte count a s percentage of total leukocytesOrdered By: Jessica Nichole on 06-04-2024 Lymphocytes/100 WBC Auto (Unsp spec) 30.7 % - [facility] BUN/creatinine ratioOrdered By: [facility] Dionisio on 06-04-2024 Urea nitrogen/Creatinine [Mass ratio] 12.7 mg/mg 10- [facility] Basophil percentageOrdered B y: Jessica Nichole on 06-04-2024 Basophils/100 WBC (Bld) 1.1 % High 0-1 [facility] Bilirubin, totalOrdered By: Jessica Nichole on 06-04-2024 Bilirubin [Mass/Vol] 0.33 mg/dL 0.00-1.30 [facility] CBC W/Diff, Automatedon Absolute Lymph 2.26 X10 3/uL Normal 0.83-4.51 [facility] Comment on above: Performed By: #### L 500.4050, L100.0100 #### [facility] [address] [place], [address] Absolute Neut 4.1 X10 3/uL Normal 2.0-7.7 [facility] Comment on above: Performed By: #### L 500.4050, L100.0100 #### [facility] [address] [place], [address] Basophils/100 WBC (Bld) 1.1 % High 0-1 [facility] Comment on above: Performed By: #### L 500.4050, L100.0100 #### [facility] [address] [place], [address] Eosinophils/100 WBC (Bld) 3.8 % Normal 0-5 [facility] Comment on above: Performed By: #### L 500.4050, L100.0100 #### [facility] [address] [place], [address] Erythrocyte distribution width (RBC) [Ratio] 13.0 % Normal 11.6-14.6 [facility] Comment on above: Performed By: #### L 500.4050, L100.0100 #### [facility] [address] [place], [address] Hematocrit (Bld) [Volume fraction] 36.7 % Low 37-47 [facility] Comment on above: Performed By: #### L 500.4050, L100.0100 #### [facility] [address] [place], [address] Hemoglobin (Bld) [Mass/Vol] 12.5 g/dL Normal 12.0-15.0 [facility] Comment on above: Performed By: #### L 500.4050, L100.0100 #### [facility] [address] [place], [address] IG% 0.300 Normal 0.0-0.9 [facility] Comment on above: Result Comment: IG% - Immature Granulocytes (promyelocytes, myelocytes and metamyelocytes) > 1% indicates that a LEFT SHIFT is Present. Performed By: #### L 500.4050, L100.0100 #### [facility] [address] [place], [address] Lymphocytes/100 WBC (Bld) 30.7 % Normal 19-41 [facility] Comment on above: Performed By: #### L 500.4050, L100.0100 #### [facility] [address] [place], [address] MCH (RBC) [Entitic mass] 30.6 pg Normal 27.0-32.0 [facility] Comment on above: Performed By: #### L 500.4050, L100.0100 #### [facility] [address] [place], [address] MCHC (RBC) [Mass/Vol] 34.1 g/dL Normal 32-36 [facility] Comment on above: Performed By: #### L 500.4050, L100.0100 #### [facility] [address] [place], [address] MCV (RBC) [Entitic vol] 89.7 fL Normal 81-99 [facility] Comment on above: Performed By: #### L 500.4050, L100.0100 #### [facility] [address] [place], [address] Monocytes/100 WBC (Bld) 9.1 % Normal 0-10 [facility] Comment on above: Performed By: #### L 500.4050, L100.0100 #### [facility] [address] [place], [address] Neutrophils/100 WBC (Bld) 55.0 % Normal 47-70 [facility] Comment on above: Performed By: #### L 500.4050, L100.0100 #### [facility] [address] [place], [address] Nucleated RBC (Bld) [#/Vol] 0 10*3/uL Normal 0-5 [facility] Comment on above: Performed By: #### L 500.4050, L100.0100 #### [facility] [address] [place], [address] Platelet mean volume (Bld) [Entitic vol] 11.5 fL Normal 6.2-12.0 [facility] Comment on above: Performed By: #### L 500.4050, L100.0100 #### [facility] [address] [place], [address] Platelets (Bld) [#/Vol] 236 10*3/uL Normal 150-450 [facility] Comment on above: Performed By: #### L 500.4050, L100.0100 #### [facility] [address] [place], [address] RBC (Bld) [#/Vol] 4.09 10*6/uL Low 4.2-5.4 [place] Comment on above: Performed By: #### L 500.4050, L100.0100 #### [facility] [address] [place], [address] RDW SD 43.1 fl Normal 35.1-43.9 [facility] Comment on above: Performed By: #### L 500.4050, L100.0100 #### [facility] [address] [place], [address] WBC (Bld) [#/Vol] 7.4 10*3/uL Normal 4.4-11.0 [facility] Comment on above: Performed By: #### L 500.4050, L100.0100 #### [facility] [address] [place], [address] Carbon dioxide, total [Moles /volume] in Central venous bloodOrdered By: Jessica Nichole on 06-04-2024 CO2 [Moles/Vol] 25.6 mmol/L 21.0-32.0 [facility] Chloride assayOrdered By: Carlos Alberto Nichole on 06-04-2024 Chloride [Moles/Vol] 103 mmol/L 98-108 [facility] Comprehensive Metabolic Prof ilon 06-04-2024 Albumin [Mass/Vol] 4.3 g/dL Normal 3.5-5.0 [facility] Comment on above: Performed By: #### L 500.4050, L100.0100 #### [facility] [address] [place], [address] Albumin/Globulin [Mass ratio] 1.6 {ratio} Normal 0.9-2.4 [facility] Comment on above: Performed By: #### L 500.4050, L100.0100 #### [facility] [address] [place], [address] ALK PHOS 54 U/L Normal 35-104 [facility] Comment on above: Performed By: #### L 500.4050, L100.0100 #### [facility] [address] [place], [address] ALT [Catalytic activity/Vol] 24 U/L Normal <=34 [facility] Comment on above: Performed By: #### L 500.4050, L100.0100 #### [facility] [address] [place], [address] AST [Catalytic activity/Vol] 46 U/L High <=31 [facility] Comment on above: Performed By: #### L 500.4050, L100.0100 #### [facility] [address] [place], [address] Bilirubin [Mass/Vol] 0.33 mg/dL Normal 0.00-1.30 [facility] Comment on above: Performed By: #### L 500.4050, L100.0100 #### [facility] [address] [place], [address] BUN/CRE 12.7 RATIO Normal 10-20 [facility] Comment on above: Performed By: #### L 500.4050, L100.0100 #### [facility] [address] [place], [address] Calcium [Mass/Vol] 9.0 mg/dL Normal 7.6-11.0 [facility] Comment on above: Performed By: #### L 500.4050, L100.0100 #### [facility] [address] [place], [address] Chloride [Moles/Vol] 103 mmol/L Normal 98-108 [facility] Comment on above: Performed By: #### L 500.4050, L100.0100 #### [facility] [address] [place], [address] CO2 [Moles/Vol] 25.6 mmol/L Normal 21.0-32.0 [facility] Comment on above: Performed By: #### L 500.4050, L100.0100 #### [facility] [address] [place], [address] Creatinine [Mass/Vol] 0.95 mg/dL Normal 0.70-1.20 [facility] Comment on above: Performed By: #### L 500.4050, L100.0100 #### [facility] [address] [place], [address] GAP 11 Normal 5-15 [facility] Comment on above: Performed By: #### L 500.4050, L100.0100 #### [facility] [address] [place], [address] GFR/1.73 sq M.predicted among non-blacks MDRD (S/P/Bld) [Vol rate/Area] 71 mL/min/{1.73_m2} Normal >60 [facility] Comment on above: Result Comment: mL/m in/1.73m2 CKD-EPI Creatinine Equation (2020) Performed By: #### L 500.4050, L100.0100 #### [facility] [address] [place], [address] Globulin (S) [Mass/Vol] 2.7 g/dL Normal 2.2-4.2 [facility] Comment on above: Performed By: #### L 500.4050, L100.0100 #### [facility] [address] [place], [address] Glucose [Mass/Vol] 93 mg/dL Normal 70-99 [facility] Comment on above: Performed By: #### L 500.4050, L100.0100 #### [facility] [address] [place], [address] Potassium [Moles/Vol] 3.9 mmol/L Normal 3.3-5.1 [facility] Comment on above: Performed By: #### L 500.4050, L100.0100 #### [facility] [address] [place], [address] Sodium [Moles/Vol] 139 mmol/L Normal 133-145 [facility] Comment on above: Performed By: #### L 500.4050, L100.0100 #### [facility] [address] [place], [address] T PROT 6.9 g/dL Normal 5.9-8.4 [facility] Comment on above: Performed By: #### L 500.4050, L100.0100 #### [facility] [address] [place], [address] Urea nitrogen [Mass/Vol] 12 mg/dL Normal 4-19 [facility] Comment on above: Performed By: #### L 500.4050, L100.0100 #### [facility] [address] [place], [address] Eosinophil percentageOrdered By: Jessica Nichole on 06-04-2024 Eosinophils/100 WBC (Bld) 3.8 % 0-5 [facility] Erythrocyte distribution wid th (RBC) [Ratio]Ordered By: Jessica Nichole on 06-04-2024 Erythrocyte distribution width (RBC) [Entitic vol] 43.1 fL 35.1-43.9 [facility] Erythrocyte distribution wid th ratioOrdered By: Jessica Nichole on 06-04-2024 Erythrocyte distribution width (RBC) [Ratio] 13.0 % 11.6-14.6 [facility] Erythrocyte distribution wid th standard deviationOrdered By: Jessica Nichole on 06-04-2024 Erythrocyte distribution width (RBC) [Ratio] 43.1 fl 35.1-43.9 [facility] GFR/1.73 sq M.predicted javier g non-blacks MDRD (S/P/Bld) [Vol rate/Area]Ordered By: Jessica Nichole on 06-04-2024 Estimated GFR (MDRD) Non-Af Amer 71 >60 [facility] Comment on above: mL/min/1.73m2 CKD-EP I Creatinine Equation (2020) Glomerular filtration rate ( GFR) estimation/1.73 sq m using serum, plasma, or whole bOrdered By: Jessica Nichole on 06-04-2024 GFR/1.73 sq M.predicted among non-blacks MDRD (S/P/Bld) [Vol rate/Area] 71 mL/min/{1.73_m2} >60 [facility] Comment on above: mL/min/1.73m2 CKD-EP I Creatinine Equation (2020) Hematocrit Auto (Bld) [Volum e fraction]Ordered By: Jessica Nichole on 06-04-2024 Hematocrit (Bld) [Volume fraction] 36.7 % Low 37-47 [facility] Hemoglobin measurementOrdere d By: Jessica Nichole 06-04-2024 Hemoglobin (Bld) [Mass/Vol] 12.5 g/dL 12.0-15.0 [facility] Immature granulocytes/100 WB C Auto (Bld)Ordered By: Jessica Nichole on 06-04-2024 Immature granulocytes/100 WBC (Bld) 0.300 % 0.0-0.9 [facility] Comment on above: IG% - Immature Granu locytes (promyelocytes, myelocytes and metamyelocytes) > 1% indicates that a LEFT SHIFT is Present. Laboratory - Chemistry and C hemistry - challengeOrdered By: Jessica Nichole on 06-04-2024 AST [Catalytic activity/Vol] 46 U/L High <32 [facility] Lymphocytes Auto (Unsp spec) [#/Vol]Ordered By: Jessica Nichole on 06-04-2024 Lymphocytes (Bld) [#/Vol] 2.26 10*3/uL 0.83-4.51 [facility] Lymphocytes/100 WBC Auto (Un sp spec)Ordered By: Jessica Nichole on 06-04-2024 Lymphocytes/100 WBC (Bld) 30.7 % 19-41 [facility] MCV (mean corpuscular volume ) determinationOrdered By: Jessica Nichole on 06-04-2024 MCV (RBC) [Entitic vol] 89.7 fL 81-99 [facility] Mean corpuscular hemoglobin (MCH) determinationOrdered By: Jessica Nichole on 06-04-2024 MCH (RBC) [Entitic mass] 30.6 pg 27.0-32.0 [facility] Mean corpuscular hemoglobin concentration (MCHC) determinationOrdered By: Jessica Nichole on 06-04-2024 MCHC (RBC) [Mass/Vol] 34.1 g/dL 32-36 [facility] Mean platelet volume determi nationOrdered By: Jessica Nichole on 06-04-2024 Platelet mean volume (Bld) [Entitic vol] 11.5 fL 6.2-12.0 [facility] Monocyte percentageOrdered B y: Jessica Nichole on 06-04-2024 Monocytes/100 WBC (Bld) 9.1 % 0-10 [facility] Neutrophil percentageOrdered By: Jessica Nichole on 06-04-2024 Neutrophils/100 WBC (Bld) 55.0 % 47-70 [facility] Nucleated red blood cell per centageOrdered By: Jessica Nichole on 06-04-2024 Nucleated RBC/100 WBC (Bld) [Ratio] 0 % 0-5 [facility] Platelet countOrdered By: Carlos Alberto Nichole on 06-04-2024 Platelets (Bld) [#/Vol] 236 10*3/uL 150-450 [facility] Potassium (Unsp spec) [Mass/ Vol]Ordered By: Jessica Nichole on 06-04-2024 Potassium [Moles/Vol] 3.9 mmol/L 3.3-5.1 [facility] Potassium measurement (mass/ volume)Ordered By: Jessica Nichole on 06-04-2024 Potassium (Unsp spec) [Mass/Vol] 3.9 mmol/L 3.3-5.1 [facility] RBC Auto (Bld) [#/Vol]Ordere d By: Jessica Nichole on 06-04-2024 RBC (Bld) [#/Vol] 4.09 10*6/uL Low 4.2-5.4 [place] Serum creatinine measurement (mass/volume)Ordered By: Jessica Nichole on 06-04-2024 Creatinine [Mass/Vol] 0.95 mg/dL 0.70-1.20 [facility] Serum globulin measurementOr dered By: Jessica Nichole on 06-04-2024 Globulin (S) [Mass/Vol] 2.7 g/dL 2.2-4.2 [facility] Serum glucose measurement (m ass/volume)Ordered By: Jessica Nichole on 06-04-2024 Glucose [Mass/Vol] 93 mg/dL 70-99 [facility] Serum or plasma alanine nelson otransferase (ALT) measurementOrdered By: Jessica Nichole 06-04-2024 ALT [Catalytic activity/Vol] 24 U/L <35 [facility] Serum or plasma albumin abdoul urement (mass/volume)Ordered By: Jessica Nichole on 06-04-2024 Albumin [Mass/Vol] 4.3 g/dL 3.5-5.0 [facility] Serum or plasma albumin/glob ulin mass ratioOrdered By: Jessica Nichole 06-04-2024 Albumin/Globulin [Mass ratio] 1.6 {ratio} 0.9-2.4 [facility] Serum or plasma alkaline felecia sphatase measurementOrdered By: Jessica Nichole 06-04-2024 ALP [Catalytic activity/Vol] 54 U/L 35-104 [facility] Serum or plasma calcium abdoul urement (mass/volume)Ordered By: Jessica Nichole on 06-04-2024 Calcium [Mass/Vol] 9.0 mg/dL 7.6-11.0 [facility] Serum or plasma urea nitroge n measurement (mass/volume)Ordered By: Jessica Nichole on 06-04-2024 Urea nitrogen [Mass/Vol] 12 mg/dL 4-19 [facility] Sodium levelOrdered By: Scott scruggs Dionisio on 06-04-2024 Sodium [Moles/Vol] 139 mmol/L 133-145 [facility] Total proteinOrdered By: Prince tapia Dionisio on 06-04-2024 Protein [Mass/Vol] 6.9 g/dL 5.9-8.4 [facility] [facility] White blood cell (WBC) count Ordered By: Jessica Dionisio on 06-04-2024 WBC (Bld) [#/Vol] 7.4 10*3/uL 4.4-11.0 [facility] Quantiferon TB-Gold+on 02-15 QFT MITOGEN YASMIN > 10.00 Normal . [facility] Comment on above: Performed By: #### L 3400.8000 #### [facility] [address] [place], [address] (260) QFT NIL VALUE 0.07 IU/mL Normal . [facility] Comment on above: Performed By: #### L 3400.8000 #### [facility] [address] [place], [place], [phone] ([phone]) QFT TB GOLD+ Comment Normal . [facility] Comment on above: Result Comment: Tay tiFERON-TB Gold Plus is a qualitative indirect test for M tuberculosis infection (including disease) and is intended for use in conjunction with risk assessment, radiography, and other medical and diagnostic evaluations. The QuantiFERON-TB Gold Plus result is determined by subtracting the Nil value from either TB antigen (Ag) value. The Mitogen tube serves as a control for the test. Performed By: #### L 3400.8000 #### [facility] [address] [place], [place], [phone] ([phone]) QFT TB POS CRIT Negative Normal Negative [facility] Comment on above: Result Comment: No r esponse to M tuberculosis antigens detected. Infection with M tuberculosis is unlikely, but high risk individuals should be considered for additional testing (ATS/IDSA/CDC Clinical Practice Guidelines, 2017). The reference range is an Antigen minus Nil result of <0.35 IU/mL. The specimen received for QuantiFERON testing was incubated by the ordering institution. Specific procedures outlined in our Directory of Services and in the package insert for the QuantiFERON Gold (In Tube) test must be followed to enable for proper stimulation of cells for the production of interferon gamma. Chemiluminescence immunoassay methodology Performed at: [address] [id number] Mapping Editor: Raad Wolfe PhD, Phone: [phone] Performed By: #### L 3400.8000 #### [facility] [address] [place], [address] QFT TB1+ AG YASMIN 0.06 IU/mL Normal . [facility] Comment on above: Performed By: #### L 3400.8000 #### [facility] [address] [place], [address] QFT TB2+ AG YASMIN 0.06 IU/mL Normal . [facility] Comment on above: Performed By: #### L 3400.8000 #### [facility] [address] [place], [address] M. tuberculosis tuberculin s juan IFN-g Ql (Bld)Ordered By: Jessica Nichole on 02-12-2024 TB Test (QFT) Antigen 1 0.06 IU/mL . [facility] Quantiferon-TB Gold Plus shannon tOrdered By: Jessica Nichole on 02-12-2024 TB Test (QFT) Comment . [facility] Comment on above: QuantiFERON-TB Gold Plus is a qualitative indirect test forM tuberculosis infection (including disease) and isintended for use in conjunction with risk assessment,radiography, and other medical and diagnostic evaluations.The QuantiFERON-TB Gold Plus result is determined bysubtracting the Nil value from either TB antigen (Ag)value. The Mitogen tube serves as a control for the test. TB Test (QFT) Antigen 2 0.06 IU/mL . [facility] TB Test (QFT) Mitogen > 10.00 IU/mL . [facility] TB Test (QFT) Nil 0.07 IU/mL . [facility] TB Test (QFT) Positive Criteria Negative Negative [facility] Comment on above: No response to M tub erculosis antigens detected.Infection with M tuberculosis is unlikely, but high riskindividuals should be considered for additional testing(ATS/IDSA/CDC Clinical Practice Guidelines, 2017). Thereference range is an Antigen minus Nil result of <0.35IU/mL.The specimen received for QuantiFERON testing was incubatedby the ordering institution. Specific procedures outlinedin our Directory of Services and in the package insert forthe QuantiFERON Gold (In Tube) test must be followed toenable for proper stimulation of cells for the productionof interferon gamma. Chemiluminescence immunoassaymethodologyPerformed at: [facility] [address] [id number] Director: Raad Wolfe PhD, Phone: [phone] CBC W/Diff, Automatedon 12-0 Absolute Lymph 1.82 X10 3/uL Normal 0.83-4.51 [facility] Comment on above: Performed By: #### L 500.4050, L100.0100 #### [facility] [address] [place], [address] Absolute Neut 2.8 X10 3/uL Normal 2.0-7.7 [facility] Comment on above: Performed By: #### L 500.4050, L100.0100 #### [facility] [address] [place], [address] Basophils/100 WBC (Bld) 0.9 % Normal 0-1 [facility] Comment on above: Performed By: #### L 500.4050, L100.0100 #### [facility] [address] [facility], [address] Eosinophils/100 WBC (Bld) 3.4 % Normal 0-5 [facility] Comment on above: Performed By: #### L 500.4050, L100.0100 #### [facility] [address] [place], [address] Erythrocyte distribution width (RBC) [Ratio] 13.0 % Normal 11.6-14.6 [facility] Comment on above: Performed By: #### L 500.4050, L100.0100 #### [facility] [address] [place], [address] Hematocrit (Bld) [Volume fraction] 37.2 % Normal 37-47 [facility] Comment on above: Performed By: #### L 500.4050, L100.0100 #### [facility] [address] [place], [address] Hemoglobin (Bld) [Mass/Vol] 12.2 g/dL Normal 12.0-15.0 [facility] Comment on above: Performed By: #### L 500.4050, L100.0100 #### [facility] [address] [place], [address] IG% 0.400 Normal 0.0-0.9 [facility] Comment on above: Result Comment: IG% - Immature Granulocytes (promyelocytes, myelocytes and metamyelocytes) > 1% indicates that a LEFT SHIFT is Present. Performed By: #### L 500.4050, L100.0100 #### [facility] [address] [place], [address] Lymphocytes/100 WBC (Bld) 33.0 % Normal 19-41 [facility] Comment on above: Performed By: #### L 500.4050, L100.0100 #### [facility] [address] [place], [address] MCH (RBC) [Entitic mass] 29.7 pg Normal 27.0-32.0 [facility] Comment on above: Performed By: #### L 500.4050, L100.0100 #### [facility] [address] [place], [address] MCHC (RBC) [Mass/Vol] 32.8 g/dL Normal 32-36 [facility] Comment on above: Performed By: #### L 500.4050, L100.0100 #### [facility] [address] [place], [address] MCV (RBC) [Entitic vol] 90.5 fL Normal 81-99 [facility] Comment on above: Performed By: #### L 500.4050, L100.0100 #### [facility] [address] [place], [address] Monocytes/100 WBC (Bld) 12.5 % High 0-10 [facility] Comment on above: Performed By: #### L 500.4050, L100.0100 #### [facility] [address] [place], [address] Neutrophils/100 WBC (Bld) 49.8 % Normal 47-70 [facility] Comment on above: Performed By: #### L 500.4050, L100.0100 #### [facility] [address] [place], [address] Nucleated RBC (Bld) [#/Vol] 0 10*3/uL Normal 0-5 [facility] Comment on above: Performed By: #### L 500.4050, L100.0100 #### [facility] [address] [place], [address] Platelet mean volume (Bld) [Entitic vol] 11.7 fL Normal 6.2-12.0 [facility] Comment on above: Performed By: #### L 500.4050, L100.0100 #### [facility] [address] [place], [address] Platelets (Bld) [#/Vol] 199 10*3/uL Normal 150-450 [facility] Comment on above: Performed By: #### L 500.4050, L100.0100 #### [facility] [address] [place], [address] RBC (Bld) [#/Vol] 4.11 10*6/uL Low 4.2-5.4 [place] Comment on above: Performed By: #### L 500.4050, L100.0100 #### [facility] [address] [place], [address] RDW SD 42.9 fl Normal 35.1-43.9 [facility] Comment on above: Performed By: #### L 500.4050, L100.0100 #### [facility] [address] [place], [address] WBC (Bld) [#/Vol] 5.5 10*3/uL Normal 4.4-11.0 [facility] Comment on above: Performed By: #### L 500.4050, L100.0100 #### [facility] [address] [place], [address] Comprehensive Metabolic Prof [facility] 02-05-2024 Albumin [Mass/Vol] 3.8 g/dL Normal 3.2-5.0 [facility] Comment on above: Performed By: #### L 500.4050, L100.0100 #### [facility] [address] [place], [address] Albumin/Globulin [Mass ratio] 1.2 {ratio} Normal 0.9-2.4 [facility] Comment on above: Performed By: #### L 500.4050, L100.0100 #### [facility] [address] [place], [address] ALK P 54 U/L Normal 45-117 [facility] Comment on above: Performed By: #### L 500.4050, L100.0100 #### [facility] [address] [place], [address] ALT [Catalytic activity/Vol] 30 U/L Normal 13-56 [facility] Comment on above: Performed By: #### L 500.4050, L100.0100 #### [facility] [address] [place], [address] AST [Catalytic activity/Vol] 34 U/L Normal 15-37 [facility] Comment on above: Performed By: #### L 500.4050, L100.0100 #### [facility] [address] [place], [address] Bilirubin [Mass/Vol] 0.40 mg/dL Normal 0.20-1.00 [facility] Comment on above: Result Comment: For patients on eltrombopag therapy, use of Dimension [place] TBIL is not recommended. Performed By: #### L 500.4050, L100.0100 #### [facility] [address] [place], [address] BUN/CRE 20.5 RATIO High 10-20 [facility] Comment on above: Performed By: #### L 500.4050, L100.0100 #### [facility] [address] [place], [address] CA,Total 9.0 mg/dL Normal 8.5-10.1 [facility] Comment on above: Performed By: #### L 500.4050, L100.0100 #### [facility] [address] [place], [address] Chloride [Moles/Vol] 105 mmol/L Normal 98-107 [facility] Comment on above: Performed By: #### L 500.4050, L100.0100 #### [facility] [address] [place], [address] CO2 [Moles/Vol] 29.0 mmol/L Normal 21.0-32.0 [facility] Comment on above: Performed By: #### L 500.4050, L100.0100 #### [facility] [address] [place], [address] Creatinine [Mass/Vol] 0.83 mg/dL Normal 0.55-1.02 [facility] Comment on above: Result Comment: The validity of the calculated GFR GFRAA in patients over 70 years has not been determined. Clinical correlation is essential. Performed By: #### L 500.4050, L100.0100 #### [facility] [address] [place], [address] EST GFR - AA 92 mL/min Normal >60 [facility] Comment on above: Result Comment: Afri can [place] GFR Calc Performed By: #### L 500.4050, L100.0100 #### [facility] [address] [place], [address] GAP 4 Low 5-15 [facility] Comment on above: Performed By: #### L 500.4050, L100.0100 #### [facility] [address] [place], [address] GFR/1.73 sq M.predicted among non-blacks MDRD (S/P/Bld) [Vol rate/Area] 76 mL/min/{1.73_m2} Normal >60 [facility] Comment on above: Result Comment: Non- GFR Calc Performed By: #### L 500.4050, L100.0100 #### [facility] [address] [place], [address] Globulin (S) [Mass/Vol] 3.1 g/dL Normal 2.2-4.2 [facility] Comment on above: Performed By: #### L 500.4050, L100.0100 #### [facility] [address] [place], [address] Glucose [Mass/Vol] 88 mg/dL Normal 74-106 [facility] Comment on above: Performed By: #### L 500.4050, L100.0100 #### [facility] [address] [place], [address] Potassium [Moles/Vol] 3.9 mmol/L Normal 3.5-5.1 [facility] Comment on above: Performed By: #### L 500.4050, L100.0100 #### [facility] [address] [place], [address] Sodium [Moles/Vol] 138 mmol/L Normal 136-145 [facility] Comment on above: Performed By: #### L 500.4050, L100.0100 #### [facility] [address] [place], [address] T PROT 6.9 g/dL Normal 6.4-8.2 [facility] Comment on above: Performed By: #### L 500.4050, L100.0100 #### [facility] [address] [place], [address] Urea nitrogen [Mass/Vol] 17 mg/dL Normal 7-18 [facility] Comment on above: Performed By: #### L 500.4050, L100.0100 #### [facility] [address] [place], [address] CBC W/Diff, Automatedon 09-0 5-2024 Absolute Lymph 2.07 X10 3/uL Normal 0.83-4.51 [facility] Comment on above: Performed By: #### L 100.0100, L500.4050 #### [facility] [address] [place], [address] Absolute Neut 3.0 X10 3/uL Normal 2.0-7.7 [facility] Comment on above: Performed By: #### L 100.0100, L500.4050 #### [facility] [address] [place], [address] Basophils/100 WBC (Bld) 1.0 % Normal 0-1 [facility] Comment on above: Performed By: #### L 100.0100, L500.4050 #### [facility] [address] [place], [address] Eosinophils/100 WBC (Bld) 3.1 % Normal 0-5 [facility] Comment on above: Performed By: #### L 100.0100, L500.4050 #### [facility] [address] [place], [address] Erythrocyte distribution width (RBC) [Ratio] 14.7 % High 11.6-14.6 [facility] Comment on above: Performed By: #### L 100.0100, L500.4050 #### [facility] [address] [place], [address] Hematocrit (Bld) [Volume fraction] 35.8 % Low 37-47 [facility] Comment on above: Performed By: #### L 100.0100, L500.4050 #### [facility] [address] [place], [address] Hemoglobin (Bld) [Mass/Vol] 11.4 g/dL Low 12.0-15.0 [facility] Comment on above: Performed By: #### L 100.0100, L500.4050 #### [facility] [address] [place], [address] IG% 0.200 Normal 0.0-0.9 [facility] Comment on above: Result Comment: IG% - Immature Granulocytes (promyelocytes, myelocytes and metamyelocytes) > 1% indicates that a LEFT SHIFT is Present. Performed By: #### L 100.0100, L500.4050 #### [facility] [address] [place], [address] Lymphocytes/100 WBC (Bld) 35.4 % Normal 19-41 [facility] Comment on above: Performed By: #### L 100.0100, L500.4050 #### [facility] [address] [place], [address] MCH (RBC) [Entitic mass] 29.1 pg Normal 27.0-32.0 [facility] Comment on above: Performed By: #### L 100.0100, L500.4050 #### [facility] [address] [place], [address] MCHC (RBC) [Mass/Vol] 31.8 g/dL Low 32-36 [facility] Comment on above: Performed By: #### L 100.0100, L500.4050 #### [facility] [address] [place], [address] MCV (RBC) [Entitic vol] 91.3 fL Normal 81-99 [facility] Comment on above: Performed By: #### L 100.0100, L500.4050 #### [facility] [address] [place], [address] Monocytes/100 WBC (Bld) 9.6 % Normal 0-10 [facility] Comment on above: Performed By: #### L 100.0100, L500.4050 #### [facility] [address] [place], [address] Neutrophils/100 WBC (Bld) 50.7 % Normal 47-70 [facility] Comment on above: Performed By: #### L 100.0100, L500.4050 #### [facility] [address] [place], [address] Nucleated RBC (Bld) [#/Vol] 0 10*3/uL Normal 0-5 [facility] Comment on above: Performed By: #### L 100.0100, L500.4050 #### [facility] [address] [place], [address] Platelet mean volume (Bld) [Entitic vol] 11.4 fL Normal 6.2-12.0 [facility] Comment on above: Performed By: #### L 100.0100, L500.4050 #### [facility] [address] [place], [address] Platelets (Bld) [#/Vol] 218 10*3/uL Normal 150-450 [facility] Comment on above: Performed By: #### L 100.0100, L500.4050 #### [facility] [address] [place], [address] RBC (Bld) [#/Vol] 3.92 10*6/uL Low 4.2-5.4 [place] Comment on above: Performed By: #### L 100.0100, L500.4050 #### [facility] [address] [place], [address] RDW SD 49.1 fl High 35.1-43.9 [facility] Comment on above: Performed By: #### L 100.0100, L500.4050 #### [facility] [address] [place], [address] WBC (Bld) [#/Vol] 5.9 10*3/uL Normal 4.4-11.0 [facility] Comment on above: Performed By: #### L 100.0100, L500.4050 #### [facility] [address] [place], [address] Comprehensive Metabolic Prof [facility] 11-06-2023 Albumin [Mass/Vol] 3.7 g/dL Normal 3.2-5.0 [facility] Comment on above: Performed By: #### L 100.0100, L500.4050 #### [facility] [address] [place], [address] Albumin/Globulin [Mass ratio] 1.1 {ratio} Normal 0.9-2.4 [facility] Comment on above: Performed By: #### L 100.0100, L500.4050 #### [facility] [address] [place], [address] ALK P 59 U/L Normal 45-117 [facility] Comment on above: Performed By: #### L 100.0100, L500.4050 #### [facility] [address] [place], [address] ALT [Catalytic activity/Vol] 36 U/L Normal 13-56 [facility] Comment on above: Performed By: #### L 100.0100, L500.4050 #### [facility] [address] [place], [address] AST [Catalytic activity/Vol] 41 U/L High 15-37 [facility] Comment on above: Performed By: #### L 100.0100, L500.4050 #### [facility] [address] [place], [address] Bilirubin [Mass/Vol] 0.20 mg/dL Normal 0.20-1.00 [facility] Comment on above: Result Comment: For patients on eltrombopag therapy, use of Dimension [place] TBIL is not recommended. Performed By: #### L 100.0100, L500.4050 #### [facility] [address] [place], [address] BUN/CRE 21.4 RATIO High 10-20 [facility] Comment on above: Performed By: #### L 100.0100, L500.4050 #### [facility] [address] [place], [address] CA,Total 8.7 mg/dL Normal 8.5-10.1 [facility] Comment on above: Performed By: #### L 100.0100, L500.4050 #### [facility] [address] [place], [address] Chloride [Moles/Vol] 108 mmol/L High 98-107 [facility] Comment on above: Performed By: #### L 100.0100, L500.4050 #### [facility] [address] [place], [address] CO2 [Moles/Vol] 28.0 mmol/L Normal 21.0-32.0 [facility] Comment on above: Performed By: #### L 100.0100, L500.4050 #### [facility] [address] [place], [address] Creatinine [Mass/Vol] 0.98 mg/dL Normal 0.55-1.02 [facility] Comment on above: Result Comment: The validity of the calculated GFR GFRAA in patients over 70 years has not been determined. Clinical correlation is essential. Performed By: #### L 100.0100, L500.4050 #### [facility] [address] [place], [address] EST GFR - AA 76 mL/min Normal >60 [facility] Comment on above: Result Comment: Afri can [place] GFR Calc Performed By: #### L 100.0100, L500.4050 #### [facility] [address] [place], [address] GAP 3 Low 5-15 [facility] Comment on above: Performed By: #### L 100.0100, L500.4050 #### [facility] [address] [place], [address] GFR/1.73 sq M.predicted among non-blacks MDRD (S/P/Bld) [Vol rate/Area] 63 mL/min/{1.73_m2} Normal >60 [facility] Comment on above: Result Comment: Non- GFR Calc Performed By: #### L 100.0100, L500.4050 #### [facility] [address] [place], [address] Globulin (S) [Mass/Vol] 3.4 g/dL Normal 2.2-4.2 [facility] Comment on above: Performed By: #### L 100.0100, L500.4050 #### [facility] [address] [place], [address] Glucose [Mass/Vol] 90 mg/dL Normal 74-106 [facility] Comment on above: Performed By: #### L 100.0100, L500.4050 #### [facility] [address] [place], [address] Potassium [Moles/Vol] 3.8 mmol/L Normal 3.5-5.1 [facility] Comment on above: Performed By: #### L 100.0100, L500.4050 #### [facility] [address] [place], [address] Sodium [Moles/Vol] 139 mmol/L Normal 136-145 [facility] Comment on above: Performed By: #### L 100.0100, L500.4050 #### [facility] [address] [place], [address] T PROT 7.1 g/dL Normal 6.4-8.2 [facility] Comment on above: Performed By: #### L 100.0100, L500.4050 #### [facility] [address] [place], [address] Urea nitrogen [Mass/Vol] 21 mg/dL High 7-18 [facility] [facility] Comment on above: Performed By: #### L 100.0100, L500.4050 #### [facility] [address] [place], [address] CBC + DIFFon 08-13-2023 Baso # 0.02 x10EE3/UL Normal 0.00 - 0.10 [facility] Comment on above: Performed By: #### 2 42666 #### [facility],[address] [place] [address] 75286 Basophils/100 WBC (Bld) 0.2 % Normal 0.0 - 2.0 [facility] Comment on above: Performed By: #### 2 70481 #### [facility],[address] [place] [address] CBC + DIFF Normal [facility] Comment on above: Result Comment: CBC- COMPLETE BLOOD COUNT Performed By: #### 2 95743 #### [facility],[address] [place] [address] EO # 0.10 x10EE3/UL Normal 0.00 - 0.50 [facility] Comment on above: Performed By: #### 2 06480 #### [facility],[address] [place], [place] [address] Eosinophils/100 WBC (Bld) 1.3 % Normal 0.0 - 7.0 [facility] Comment on above: Performed By: #### 2 87209 #### [facility],[address] [place] [address] Erythrocyte distribution width (RBC) [Ratio] 13.9 % Normal 12.0 - 15.6 [facility] Comment on above: Performed By: #### 2 88009 #### [facility],[address] [place] [address] Hematocrit (Bld) [Volume fraction] 35.1 % Normal 34.0 - 46.0 [facility] Comment on above: Performed By: #### 2 29085 #### [facility],[address] [place], [place] [address] Hemoglobin (Bld) [Mass/Vol] 11.6 g/dL Low 12.0 - 16.0 [facility] Comment on above: Performed By: #### 2 15838 #### [facility],[address] [place] [address] Lymph # 1.04 x10EE3/UL Normal 0.80 - 2.80 [facility] Comment on above: Performed By: #### 2 40616 #### [facility],[address] [place], [place] [address] Lymphocytes/100 WBC (Bld) 13.8 % Low 20.0 - 45.0 [facility] Comment on above: Performed By: #### 2 57829 #### [facility],[address] [place] [address] MANUAL DIFF N/A Normal [facility] Comment on above: Performed By: #### 2 55336 #### [facility],[address] [place] [address] MCH (RBC) [Entitic mass] 30 pg Normal 27 - 33 [facility] Comment on above: Performed By: #### 2 56643 #### [facility],[address] [place] [address]29 MCHC 33 X10 3 Normal 32 - 36 [facility] Comment on above: Performed By: #### 2 40766 #### [facility],[address] [place], [place] [address] MCV (RBC) [Entitic vol] 90 fL Normal 80 - 99 [facility] Comment on above: Performed By: #### 2 74068 #### [facility],[address] [place] [address] 64394 Forest # 0.53 x10EE3/UL Normal 0.20 - 1.00 [facility] Comment on above: Performed By: #### 2 38073 #### [facility],[address] [place] [address] 50611 MONOS % 7.0 % Normal 0.0 - 10.0 [facility] Comment on above: Performed By: #### 2 73007 #### [facility],[address] [place] [address] 49150 Morphology Govind (Bld) [Interp] N/A Normal [facility] Comment on above: Performed By: #### 2 48987 #### [facility],[address] [place] [address] 74514 Neut # 5.87 x10EE3/UL Normal 1.50 - 7.10 [facility] Comment on above: Performed By: #### 2 75230 #### [facility],[address] [place] [address] 37515 Neutrophils/100 WBC (Bld) 77.7 % High 46.0 - 76.0 [facility] Comment on above: Performed By: #### 2 40292 #### [facility],[address] [place] [address] 01641 PLATELET 201 x10EE3/UL Normal 150 - 450 [facility] Comment on above: Performed By: #### 2 17970 #### [facility],[address] [place] [address] 15538 Platelet mean volume (Bld) [Entitic vol] 9.1 fL Normal 6.6 - 10.5 [facility] Comment on above: Result Comment: AUTO MATED DIFFERENTIAL Performed By: #### 2 40062 #### [facility],[address] [place] [address] 10992 RBC 3.90 x 10EE6/UL Low 4.10 - 5.30 [facility] Comment on above: Performed By: #### 2 87990 #### [facility],[address] [place] [address] 99423 WBC 7.6 x 10EE3/UL Normal 4.5 - 10.8 [facility] Comment on above: Performed By: #### 2 63712 #### [facility],[address] [place] [address] 85248 CMP with eGFRon 08-13-2023 AGE 52 years Normal [facility] Comment on above: Performed By: #### 2 04799 #### [facility],[address] [place] [address] 96526 Albumin [Mass/Vol] 3.9 g/dL Normal 3.4 - 5.0 [facility] Comment on above: Performed By: #### 2 18401 #### [facility],[address] [place] [address] 44315 Albumin/Globulin [Mass ratio] 1.2 {ratio} Normal 0.9 - 1.6 [facility] Comment on above: Performed By: #### 2 46840 #### [facility],[address] [place] [address] 08311 ALK PHOS 46 U/L Normal 46 - 116 [facility] Comment on above: Performed By: #### 2 05696 #### [facility],[address] [place] [address] 93510 ALT [Catalytic activity/Vol] 26 U/L Normal 16 - 63 [facility] Comment on above: Performed By: #### 2 38127 #### [facility],[address] [place] [address] 30251 Anion gap [Moles/Vol] 14 mmol/L Normal 10 - 20 [facility] Comment on above: Performed By: #### 2 93686 #### [facility],[address] [place] [address] 51319 AST [Catalytic activity/Vol] 35 U/L Normal 13 - 39 [facility] Comment on above: Performed By: #### 2 60741 #### [facility],[address] [place] [address] 31184 B/C RATIO 15 ratio Normal 0 - 30 [facility] Comment on above: Performed By: #### 2 08203 #### [facility],[address] [place] [address] 60418 Bilirubin [Mass/Vol] 0.4 mg/dL Normal 0.2 - 1.0 [facility] Comment on above: Performed By: #### 2 41576 #### [facility],[address] [place] [address] 23495 Calcium [Mass/Vol] 8.8 mg/dL Normal 8.5 - 10.1 [facility] Comment on above: Performed By: #### 2 02904 #### [facility],[address] [place] [address] 51412 Chloride [Moles/Vol] 101 mmol/L Normal 98 - 107 [facility] Comment on above: Performed By: #### 2 68052 #### [facility],[address] [place] [address] 82349 CMP with eGFR Normal [facility] Comment on above: Result Comment: COMP REHENSIVE METABOLIC PANEL Performed By: #### 2 85771 #### [facility],[address] [place] [address] 26064 CO2 [Moles/Vol] 26.3 mmol/L Normal 21.0 - 32.0 [facility] Comment on above: Performed By: #### 2 70225 #### [facility],[address] [place] [address] 54304 Creatinine [Mass/Vol] 0.97 mg/dL Normal 0.55 - 1.02 [facility] Comment on above: Performed By: #### 2 02764 #### [facility],[address] [place] [address] 38468 eGFR 60 ML/MINUTE Normal 60 - 999 [facility] Comment on above: Performed By: #### 2 62943 #### [facility],[address] [place] [address] 82949 GFR/1.73 sq M.predicted among non-blacks MDRD (S/P/Bld) [Vol rate/Area] mL/min/{1.73_m2} Normal 60 - 999 [facility] Comment on above: Result Comment: ACCO RDING TO THE NATIONAL KIDNEY DISEASE EDUCATION PROGRAM(NKDE), A NORMAL eGFR IS A VALUE GREATER THAN OR EQUAL TO 60 ML/MIN/1.73 SQ METERS. CHRONIC KIDNEY DISEASE: <60mL/MIN/1.73 SQ METERS KIDNEY FAILURE: <15mL/MIN/1.73 SQ METERS THIS TEST SHOULD ONLY BE USED FOR PATIENTS 18 YEARS OF AGE AND OLDER. Performed By: #### 2 03273 #### [facility],[address] [place] [address] 63112 Globulin (S) [Mass/Vol] 3.2 g/dL Normal 1.5 - 3.8 [facility] Comment on above: Performed By: #### 2 98100 #### [facility],[address] [place] [address] 10262 Glucose [Mass/Vol] 105 mg/dL Normal 74 - 106 [facility] Comment on above: Performed By: #### 2 26421 #### [address] [address] Potassium [Moles/Vol] 4.2 mmol/L Normal 3.5 - 5.1 [facility] Comment on above: Performed By: #### 2 05456 #### [facility],[address] [place] [address] 70901 Protein [Mass/Vol] 7.1 g/dL Normal 6.4 - 8.2 [facility] Comment on above: Performed By: #### 2 41908 #### [facility],[address] [place] [address] 50573 Sodium [Moles/Vol] 137 mmol/L Normal 136 - 145 [facility] Comment on above: Performed By: #### 2 53524 #### [facility],[address] [place] [address] 45560 Urea nitrogen [Mass/Vol] 15 mg/dL Normal 7 - 18 [facility] Comment on above: Performed By: #### 2 34324 #### [address] [address] CBC + DIFFon 06-03-2023 Baso # 0.01 x10EE3/UL Normal 0.00 - 0.10 [facility] Comment on above: Performed By: #### 2 75038 #### [facility],[address] [place] [address] 09964 Basophils/100 WBC (Bld) 0.2 % Normal 0.0 - 2.0 [facility] Comment on above: Performed By: #### 2 90557 #### [facility],[address] [place] [address] CBC + DIFF Normal [facility] Comment on above: Result Comment: CBC- COMPLETE BLOOD COUNT Performed By: #### 2 07330 #### [facility],[address] [place] [address] EO # 0.08 x10EE3/UL Normal 0.00 - 0.50 [facility] Comment on above: Performed By: #### 2 13109 #### [facility],[address] [place] [address] Eosinophils/100 WBC (Bld) 1.2 % Normal 0.0 - 7.0 [facility] Comment on above: Performed By: #### 2 54313 #### [facility],[address] [place] [address] Erythrocyte distribution width (RBC) [Ratio] 14.5 % Normal 12.0 - 15.6 [facility] Comment on above: Performed By: #### 2 37000 #### [facility],[address] [place] [address] Hematocrit (Bld) [Volume fraction] 35.8 % Normal 34.0 - 46.0 [facility] Comment on above: Performed By: #### 2 68089 #### [facility],[address] [place] [address] Hemoglobin (Bld) [Mass/Vol] 11.7 g/dL Low 12.0 - 16.0 [facility] Comment on above: Performed By: #### 2 06151 #### [facility],[address] [place] [address] 39565 Lymph # 1.79 x10EE3/UL Normal 0.80 - 2.80 [facility] Comment on above: Performed By: #### 2 72754 #### [facility],[address] [place] [address] 42969 Lymphocytes/100 WBC (Bld) 25.4 % Normal 20.0 - 45.0 [facility] Comment on above: Performed By: #### 2 74645 #### [facility],[address] [place] [address] 88886 MANUAL DIFF N/A Normal [facility] Comment on above: Performed By: #### 2 26964 #### [facility],[address] [place] [address] MCH (RBC) [Entitic mass] 28 pg Normal 27 - 33 [facility] Comment on above: Performed By: #### 2 20658 #### [facility],[address] [place] [address] 07495 MCHC 33 X10 3 Normal 32 - 36 [facility] Comment on above: Performed By: #### 2 65168 #### [facility],[address] [place] [address] 76213 MCV (RBC) [Entitic vol] 86 fL Normal 80 - 99 [facility] Comment on above: Performed By: #### 2 53830 #### [facility],[address] [place] [address] 93732 Forest # 0.64 x10EE3/UL Normal 0.20 - 1.00 [facility] Comment on above: Performed By: #### 2 49853 #### [facility],[address] [place] [address] 51494 MONOS % 9.1 % Normal 0.0 - 10.0 [facility] Comment on above: Performed By: #### 2 39953 #### [facility],[address] [place] [address] 98438 Morphology Govind (Bld) [Interp] N/A Normal [facility] Comment on above: Performed By: #### 2 97791 #### [facility],[address] [place] [address] 36443 Neut # 4.51 x10EE3/UL Normal 1.50 - 7.10 [facility] Comment on above: Performed By: #### 2 91745 #### [facility],[address] [place] [address] 54410 Neutrophils/100 WBC (Bld) 64.1 % Normal 46.0 - 76.0 [facility] Comment on above: Performed By: #### 2 53313 #### [facility],[address] [place] [address] 14803 PLATELET 200 x10EE3/UL Normal 150 - 450 [facility] Comment on above: Performed By: #### 2 82060 #### [facility],[address] [place] [address] 37362 Platelet mean volume (Bld) [Entitic vol] 9.5 fL Normal 6.6 - 10.5 [facility] Comment on above: Result Comment: AUTO MATED DIFFERENTIAL Performed By: #### 2 04652 #### [facility],[address] [place] [address] 03241 RBC 4.14 x 10EE6/UL Normal 4.10 - 5.30 [facility] Comment on above: Performed By: #### 2 06446 #### [facility],[address] [place] [address] 53810 WBC 7.0 x 10EE3/UL Normal 4.5 - 10.8 [facility] Comment on above: Performed By: #### 2 39841 #### [facility],[address] [place] [address] 25769 CMP with eGFRon 06-03-2023 AGE 52 years Normal [facility] Comment on above: Performed By: #### 2 48390 #### [facility],[address] [place] [address] 33063 Albumin [Mass/Vol] 3.4 g/dL Normal 3.4 - 5.0 [facility] Comment on above: Performed By: #### 2 38976 #### [facility],[address] [place] [address] 06058 Albumin/Globulin [Mass ratio] 1.1 {ratio} Normal 0.9 - 1.6 [facility] Comment on above: Performed By: #### 2 62427 #### [facility],[address] [place] [address] 96103 ALK PHOS 45 U/L Low 46 - 116 [facility] Comment on above: Performed By: #### 2 62791 #### [facility],[address] [place] [address] 29240 ALT [Catalytic activity/Vol] 25 U/L Normal 16 - 63 [facility] Comment on above: Performed By: #### 2 43913 #### [facility],[address] [place] [address] 34183 Anion gap [Moles/Vol] 11 mmol/L Normal 10 - 20 [facility] Comment on above: Performed By: #### 2 79936 #### [facility],[address] [place] [address] 65176 AST [Catalytic activity/Vol] 30 U/L Normal 13 - 39 [facility] Comment on above: Performed By: #### 2 39710 #### [facility],[address] [place] [address] 97304 B/C RATIO 19 ratio Normal 0 - 30 [facility] Comment on above: Performed By: #### 2 22448 #### [facility],[address] [place] [address] 17409 Bilirubin [Mass/Vol] 0.3 mg/dL Normal 0.2 - 1.0 [facility] Comment on above: Performed By: #### 2 09355 #### [facility],[address] [place], [place] [address] Calcium [Mass/Vol] 8.1 mg/dL Low 8.5 - 10.1 [facility] Comment on above: Performed By: #### 2 44763 #### [facility],[address] [place], [place] [address] Chloride [Moles/Vol] 105 mmol/L Normal 98 - 107 [facility] Comment on above: Performed By: #### 2 17369 #### [facility],[address] [place], [place] [address] CMP with eGFR Normal [facility] Comment on above: Result Comment: COMP REHENSIVE METABOLIC PANEL Performed By: #### 2 53941 #### [place] [address] CO2 [Moles/Vol] 28.9 mmol/L Normal 21.0 - 32.0 [facility] Comment on above: Performed By: #### 2 95066 #### [place] [id number] Creatinine [Mass/Vol] 0.80 mg/dL Normal 0.55 - 1.02 [facility] Comment on above: Performed By: #### 2 83262 #### [place] [address] GFR/1.73 sq M.predicted among non-blacks MDRD (S/P/Bld) [Vol rate/Area] mL/min/{1.73_m2} Normal 60 - 999 [facility] Comment on above: Performed By: #### 2 03947 #### [facility],[address] [place] [address] Result Comment: ACCO RDING TO THE NATIONAL KIDNEY DISEASE EDUCATION PROGRAM(NKDE), A NORMAL eGFR IS A VALUE GREATER THAN OR EQUAL TO 60 ML/MIN/1.73 SQ METERS. CHRONIC KIDNEY DISEASE: <60mL/MIN/1.73 SQ METERS KIDNEY FAILURE: <15mL/MIN/1.73 SQ METERS THIS TEST SHOULD ONLY BE USED FOR PATIENTS 18 YEARS OF AGE AND OLDER. Globulin (S) [Mass/Vol] 3.2 g/dL Normal 1.5 - 3.8 [facility] Comment on above: Performed By: #### 2 73171 #### [address] [address] Glucose [Mass/Vol] 76 mg/dL Normal 74 - 106 [facility] Comment on above: Performed By: #### 2 31705 #### [address] [address] Potassium [Moles/Vol] 3.5 mmol/L Normal 3.5 - 5.1 [facility] Comment on above: Performed By: #### 2 03477 #### [address] [address] Protein [Mass/Vol] 6.6 g/dL Normal 6.4 - 8.2 [facility] Comment on above: Performed By: #### 2 64695 #### [address] [address] Sodium [Moles/Vol] 141 mmol/L Normal 136 - 145 [facility] Comment on above: Performed By: #### 2 21967 #### [address] [address] Urea nitrogen [Mass/Vol] 15 mg/dL Normal 7 - 18 [facility] Comment on above: Performed By: #### 2 03880 #### [address] [address] [facility]2023 [facility] [id number] Author: COORDINATOR, MAMMOGRAPHY, ? Service: ? Author Type: Physician Type: Letter Filed: 05/12/2023 09:47 Note Text: May 12, 2023 PID: [id number] Rose Ryan [address] [address] [place] [address] Dear Ms. Ryan, We are pleased to inform you that the results of your recent breast imaging exam on 05/12/2023 are normal. Your mammogram demonstrates that you have dense breast tissue, which could hide abnormalities. Dense breast tissue, in and of itself, is a relatively common condition. Therefore, this information is not provided to cause undue concern; rather, it is to raise your awareness and promote discussion with your health care provider regarding the presence of dense breast tissue in addition to other risk factors. Early detection of cancer is very important. We also understand recommendations regarding breast cancer screening are controversial. Please discuss with your primary care provider which strategy is best for you and whether a mammogram is right for you. Your imaging studies and report will be kept on file at [facility] as part of your permanent medical record and are available for your continuing care. Thank you for allowing us to help in meeting your health care needs. Sincerely, Dr. Ballard Interpreting Radiologist (Normal over 40) Normal [facility] DBT Breast - bilateral scree ningon 05-12-2023 [facility] HAY SCREENING W TOMOon 05-11 HAY SCREENING W SANGITA * * *Final Report* * * DATE OF EXAM: May 12 2023 8:00AM WRW [id number] - HAY SCREENING W SANGITA / PROCEDURE REASON: multiple diagnoses * * * * Physician Interpretation * * * * RESULT: #[id number] - [facility] SCREENING W SANGITA BILATERAL DIGITAL SCREENING MAMMOGRAM TOMOSYNTHESIS WITH CAD: 05/12/2023 HISTORY: Multiple Diagnoses / Screening Mammogram-Patient reports NO symptoms. /priors available for comparison. RESULT: TECHNIQUE: The study was acquired using full field digital technology and interpreted from soft copy. Digital Breast Tomosynthesis (DBT) images were obtained and used to assist in the interpretation of this examination. Current study was also evaluated with a Computer Aided Detection (CAD). Comparison is made to exams dated: 05/09/2022 mammogram, 06/20/2021 mammogram, 05/04/2021 mammogram, and 03/07/2020 mammogram - . The breasts are extremely dense, which lowers the sensitivity of mammography. No significant masses, calcifications, or other findings are seen in either breast. There has been no significant interval change. IMPRESSION: NEGATIVE There is no mammographic evidence of malignancy. A 1 year screening mammogram is recommended. Dinora Ballard M.D., cp/yarelis:05/12/2023 09:47:54 Political Aide(s): Marielle Nicole letter sent: Normal over 40 Mammogram BI-RADS: 1 Negative Multiple national specialty organizations have released breast cancer screening guidelines for women at average risk for developing breast cancer - guidelines that are based on both evidence and opinion, yet differ on when to start and how often to screen for breast cancer. With representation from Breast Imaging, Internal Medicine, Women's Health, Family Medicine, and Medical/Surgical Oncology, the [facility] has carefully reviewed the data and reached the following consensus: 1) All women should engage in shared decision-making with their providers to decide when to start and how often to screen; 2) All women should have the opportunity to start screening mammography at age 40; 3) For women ages 45-55, we recommend annual screening mammograms; 4) For women ages 55 and over, we support both the transition from an annual to a biennial interval if this aligns more with patient's values and preferences, or continuation with annual screening; 5) All women should discuss with their providers when to stop screening mammograms. Subscription Agent: Yarelis Transcribe Date/Time: May 12 2023 7:36A Dictated by: DINORA BALLARD MD This examination was interpreted and the report reviewed and electronically signed by: DINORA BALLARD MD on May 12 2023 9:47AM EST [id number] Normal [facility] CBC + DIFFon 02-04-2023 Baso # 0.10 x10EE3/UL Normal 0.00 - 0.10 [facility] Comment on above: Performed By: #### 2 65791 #### [facility],[address] [place] [address] Basophils/100 WBC (Bld) 1.2 % Normal 0.0 - 2.0 [facility] Comment on above: Performed By: #### 2 98121 #### [facility],[address] [place] [address] 91221 CBC + DIFF Normal [facility] Comment on above: Result Comment: CBC- COMPLETE BLOOD COUNT Performed By: #### 2 73127 #### [facility],[address] [place] [address] 76404 EO # 0.10 x10EE3/UL Normal 0.00 - 0.50 [facility] Comment on above: Performed By: #### 2 40841 #### [facility],[address] [place] [address] 67106 Eosinophils/100 WBC (Bld) 2.6 % Normal 0.0 - 7.0 [facility] Comment on above: Performed By: #### 2 78810 #### [facility],[address] [place], [place] [address] Erythrocyte distribution width (RBC) [Ratio] 14.0 % Normal 12.0 - 15.6 [facility] Comment on above: Performed By: #### 2 76523 #### [facility],[address] [place] [address] 71685 Hematocrit (Bld) [Volume fraction] 35.2 % Normal 34.0 - 46.0 [facility] Comment on above: Performed By: #### 2 63121 #### [facility],[address] [place] [address] 72308 Hemoglobin (Bld) [Mass/Vol] 11.5 g/dL Low 12.0 - 16.0 [facility] Comment on above: Performed By: #### 2 53548 #### [facility],[address] [place] [address] 90011 Lymph # 1.70 x10EE3/UL Normal 0.80 - 2.80 [facility] Comment on above: Performed By: #### 2 40866 #### [facility],[address] [place] [address] 69496 Lymphocytes/100 WBC (Bld) 36.7 % Normal 20.0 - 45.0 [facility] Comment on above: Performed By: #### 2 58298 #### [facility],[address] [place] [address] MANUAL DIFF N/A Normal [facility] Comment on above: Performed By: #### 2 13680 #### [facility],[address] [place] [address] MCH (RBC) [Entitic mass] 29 pg Normal 27 - 33 [facility] Comment on above: Performed By: #### 2 32049 #### [facility],[address] [place] [address] MCHC 33 X10 3 Normal 32 - 36 [facility] Comment on above: Performed By: #### 2 46773 #### [facility],[address] [place] [address] MCV (RBC) [Entitic vol] 89 fL Normal 80 - 99 [facility] Comment on above: Performed By: #### 2 80058 #### [facility],[address] [place] [address] Forest # 0.50 x10EE3/UL Normal 0.20 - 1.00 [facility] Comment on above: Performed By: #### 2 63972 #### [facility],[address] [place] [address] MONOS % 10.3 % High 0.0 - 10.0 [facility] Comment on above: Performed By: #### 2 83355 #### [facility],[address] [place] [address] Morphology Govind (Bld) [Interp] N/A Normal [facility] Comment on above: Result Comment: {CD] Performed By: #### 2 37877 #### [facility],[address] [place] [address] Neut # 2.30 x10EE3/UL Normal 1.50 - 7.10 [facility] Comment on above: Performed By: #### 2 51366 #### [facility],[address] [place] [address] 73057 Neutrophils/100 WBC (Bld) 49.2 % Normal 46.0 - 76.0 [facility] Comment on above: Performed By: #### 2 27549 #### [facility],[address] [place] [address] 04940 PLATELET 225 x10EE3/UL Normal 150 - 450 [facility] Comment on above: Performed By: #### 2 84623 #### [facility],[address] [place] [address] 99928 Platelet mean volume (Bld) [Entitic vol] 9.5 fL Normal 6.6 - 10.5 [facility] Comment on above: Result Comment: AUTO MATED DIFFERENTIAL Performed By: #### 2 23322 #### [facility],[address] [place] [address] 75725 RBC 3.97 x 10EE6/UL Low 4.10 - 5.30 [facility] Comment on above: Performed By: #### 2 42789 #### [facility],[address] [place] [address] 00621 WBC 4.7 x 10EE3/UL Normal 4.5 - 10.8 [facility] Comment on above: Performed By: #### 2 98582 #### [facility],[address] [place] [address] 34868 CMP with eGFRon 02-04-2023 AGE 52 years Normal [facility] Comment on above: Performed By: #### 2 31480 #### [facility],[address] [place] [address] 06090 Albumin [Mass/Vol] 3.5 g/dL Normal 3.4 - 5.0 [facility] Comment on above: Performed By: #### 2 21050 #### [facility],[address] [place] [address] 49249 Albumin/Globulin [Mass ratio] 0.9 {ratio} Normal 0.9 - 1.6 [facility] Comment on above: Performed By: #### 2 55626 #### [facility],[address] [place] [address] 03011 ALK PHOS 52 U/L Normal 46 - 116 [facility] Comment on above: Performed By: #### 2 24731 #### [facility],[address] [place] [address] 54774 ALT [Catalytic activity/Vol] 27 U/L Normal 14 - 59 [facility] Comment on above: Performed By: #### 2 89680 #### [facility],[address] [place] [address] 16710 Anion gap [Moles/Vol] 11 mmol/L Normal 10 - 20 [facility] Comment on above: Performed By: #### 2 29910 #### [facility],[address] [place] [address] 89097 AST [Catalytic activity/Vol] 32 U/L Normal 13 - 39 [facility] Comment on above: Performed By: #### 2 56305 #### [facility],[address] [place] [address] 50665 B/C RATIO 15 ratio Normal 0 - 30 [facility] Comment on above: Performed By: #### 2 55949 #### [facility],[address] [place] [address] 88229 Bilirubin [Mass/Vol] 0.2 mg/dL Normal 0.2 - 1.0 [facility] Comment on above: Performed By: #### 2 32846 #### [facility],[address] [place] [address] 08622 Calcium [Mass/Vol] 8.5 mg/dL Normal 8.5 - 10.1 [facility] Comment on above: Performed By: #### 2 11938 #### [facility],[address] [place] [address] 39580 Chloride [Moles/Vol] 104 mmol/L Normal 98 - 107 [facility] Comment on above: Performed By: #### 2 87869 #### [facility],[address] [place] [address] 30794 CMP with eGFR Normal [facility] Comment on above: Result Comment: COMP REHENSIVE METABOLIC PANEL Performed By: #### 2 37392 #### [facility],[address] [place], [place] [address] CO2 [Moles/Vol] 29.5 mmol/L Normal 21.0 - 32.0 [facility] Comment on above: Performed By: #### 2 06323 #### [facility],[address] [place] [address] Creatinine [Mass/Vol] 0.80 mg/dL Normal 0.55 - 1.02 [facility] Comment on above: Performed By: #### 2 66792 #### [facility],[address] [place] [address] GFR/1.73 sq M.predicted among non-blacks MDRD (S/P/Bld) [Vol rate/Area] mL/min/{1.73_m2} Normal 60 - 999 [facility] Comment on above: Performed By: #### 2 59489 #### [facility],[address] [place] [address] Result Comment: ACCO RDING TO THE NATIONAL KIDNEY DISEASE EDUCATION PROGRAM(NKDE), A NORMAL eGFR IS A VALUE GREATER THAN OR EQUAL TO 60 ML/MIN/1.73 SQ METERS. CHRONIC KIDNEY DISEASE: <60mL/MIN/1.73 SQ METERS KIDNEY FAILURE: <15mL/MIN/1.73 SQ METERS THIS TEST SHOULD ONLY BE USED FOR PATIENTS 18 YEARS OF AGE AND OLDER. Globulin (S) [Mass/Vol] 3.7 g/dL Normal 1.5 - 3.8 [facility] Comment on above: Performed By: #### 2 35838 #### [place] [id number] Glucose [Mass/Vol] 86 mg/dL Normal 74 - 106 [facility] Comment on above: Performed By: #### 2 97060 #### [facility],[address] [place], [place] [address] Potassium [Moles/Vol] 4.0 mmol/L Normal 3.5 - 5.1 [facility] Comment on above: Performed By: #### 2 14595 #### [facility],[address] [place] [address] Protein [Mass/Vol] 7.2 g/dL Normal 6.4 - 8.2 [facility] Comment on above: Performed By: #### 2 16998 #### [place] [address] Sodium [Moles/Vol] 140 mmol/L Normal 136 - 145 [facility] Comment on above: Performed By: #### 2 21846 #### [place] [address] Urea nitrogen [Mass/Vol] 12 mg/dL Normal [facility] Comment on above: Performed By: #### 2 77187 #### [place] [id number] FSH [CCL]on 12-18-2022 FSH 7.4 mIU/mL Normal See comment [facility] Comment on above: Result Comment: Amarjit ann range: Follicular: 3.5-12.5 mIU/mL Ovulation: 4.7-21.5 mIU/mL Luteal: 1.7-7.7 mIU/mL Postmenopausal: 25.8-134.8 mIU/mL Performed By: #### 2 84613 #### [place] [id number] SEX HORMONE BIND GLB [CCL]on 12-18-2022 Sex Hormone Bind Glb 88 nmol/L Normal 17-125 [facility] Comment on above: Performed By: #### 2 82841 #### [address],[place] [address] TESTOSTERONE, TOTAL & FREE, SERUM [CCL]on 12-18-2022 Testosterone, Free, S 4.56 ng/dL High <0.13-0.92 [facility] Comment on above: Result Comment: ---- ADDITIONAL INFORMATION This test was developed and its performance characteristics determined by [facility] in a manner consistent with CLIA requirements. This test has not been cleared or approved by the U.S. Food and Drug Administration. Performed By: #### 2 88261 #### [place] [id number] Testosterone, Total, S 282 ng/dL High 8-60 [facility] Comment on above: Result Comment: ---- ADDITIONAL INFORMATION Testing performed by Liquid Chromatography-Tandem Mass Spectrometry (LC-MS/MS). This test was developed and its performance characteristics determined by [facility] in a manner consistent with CLIA requirements. This test has not been cleared or approved by the U.S. Food and Drug Administration. Test Performed by: [place] [address] Mapping Editor: Carlos Manuel Case M.D. Ph.D.; CLIA# [id number] Performed By: #### 2 97997 #### [address] [address] DHEA-S [CCL]on 12-11-2022 DHEA-S 48.2 ug/dL Normal 35.4-256.0 [facility] Comment on above: Result Comment: Amarjit seth ranges are age and gender specific. For additional information, reference range tables can be found in the laboratory test directory. The normal values are based on the following source: Dehydroepiandrosterone sulfate (DHEA S) [package insert V 17.0 Guyanese]. [facility], [place], [place]: October 2012. [address] [address] Uli Godfrey III, M.D. [id number] Performed By: #### 2 37517 #### [address] [address] ESTRADIOL-17B [CCL]on 2022 Estradiol-17B 28 pg/mL Normal [facility] Comment on above: Result Comment: This test is not suitable for patients receiving treatment with the drug Fulvestrant (Faslodex). The drug causes an interference leading to falsely elevated estradiol results. Menstrual cycle Estradiol reference ranges: Follicular : < 234 pg/mL Ovulation : 41 to 398 pg/mL Luteal : < 342 pg/mL Estradiol reference ranges vary by gestational period: First trimester : 154 to 3243 pg/mL Second trimester : 1561 to 99000 pg/mL Third trimester : 8285 to >08011 pg/mL Post-menopausal Estradiol reference range: < 41 pg/mL Reference: 1. Estradiol - E2 (Estradiol III) [package insert V 3.0 Guyanese]. [employer], [place], [place], August 2015. [address] [address] Uli Godfrey III, M.D. [id number] Performed By: #### 2 73843 #### [address] [address] DHEA-S BLDon 12-10-2022 DHEA-S [Mass/Vol] 48.2 ug/dL Normal 35.4-256.0 [facility] Comment on above: Order Comment: Speci men Type: BLOOD SPECIMEN Ordering Facility: [facility] Address: [address] [place] [address] Result Comment: Refe rence ranges are age and gender specific. For additional information, reference range tables can be found in the laboratory test directory. The normal values are based on the following source: Dehydroepiandrosterone sulfate (DHEA S) [package insert V 17.0 Guyanese]. [employer], [place], [place]: October 2012. Performed By: #### D FRANCINE, 7058-4 #### [facility] CLIA [id number] [address] [place] [address] [place] Estradiol SerPl-mCncon 12-10 E2 [Mass/Vol] 28 pg/mL Normal [facility] Comment on above: Order Comment: Speci men Type: BLOOD SPECIMENOrdering Facility: [facility] Address: [address] [place] [address] Result Comment: This test is not suitable for patients receiving treatment with the drug Fulvestrant (Faslodex). The drug causes an interference leading to falsely elevated estradiol results. Menstrual cycle Estradiol reference ranges: Follicular : < 234 pg/mL Ovulation : 41 to 398 pg/mL Luteal : < 342 pg/mL Estradiol reference ranges vary by gestational period: First trimester : 154 to 3243 pg/mL Second trimester : 1561 to 98976 pg/mL Third trimester : 8285 to >77279 pg/mL Post-menopausal Estradiol reference range: < 41 pg/mL Reference: 1. Estradiol - E2 (Estradiol III) [package insert V 3.0 Guyanese]. [facility], [place], [place], August 2015. Performed By: #### Lavelle ESCAMILLA, 2242-4 ####[facility] [id number] [place] [address] [place] FSH SerPl-aCncon 12-10-2022 Follitropin Qn 7.4 m[IU]/mL Normal See comment [facility] Comment on above: Order Comment: Speci men Type: BLOOD SPECIMEN Ordering Facility: [facility] Address: [address] [place] [address] Result Comment: Refe rence range: Follicular: 3.5-12.5 mIU/mL Ovulation: 4.7-21.5 mIU/mL Luteal: 1.7-7.7 mIU/mL Postmenopausal: 25.8-134.8 mIU/mL Performed By: #### T FTEST #### [facility] CLIA [id number] [address] [place] [address] #### 59887-9, 53236-2 #### [facility] CLIA [id number] [address] [place] [address] [place] SHBG SerPl-sCncon 12-10-2022 Sex hormone binding globulin [Moles/Vol] 88 nmol/L Normal 17-125 [facility] Comment on above: Order Comment: Speci men Type: BLOOD SPECIMEN Ordering Facility: [facility] Address: [facility] [place] [address] Performed By: #### T FTEST #### [facility] CLIA [id number] [address] [place] [address] #### 30537-1, 29185-7 #### [facility] CLIA [id number] [address] [place] [address] [place] TESTOSTERONE, FREE AND TOTAL on 12-10-2022 TESTOSTERONE, FREE, S 4.56 ng/dL High <0.13-0.92 [facility] Comment on above: Order Comment: Speci men Type: BLOOD SPECIMEN Ordering Facility: [facility] Address: [facility] [place] [address] Result Comment: ADDITIONAL INFORMATION This test was developed and its performance characteristics determined by [facility] in a manner consistent with CLIA requirements. This test has not been cleared or approved by the U.S. Food and Drug Administration. Performed By: #### T FTEST #### [facility] CLIA [id number] [address] [place] [address] #### 78518-8, 53681-5 #### [facility] CLIA [id number] [address] [place] [address] [place] TESTOSTERONE, TOTAL, S 282 ng/dL High 8-60 [facility] Comment on above: Order Comment: Speci men Type: BLOOD SPECIMEN Ordering Facility: [facility] Address: [facility] [place] [address] Result Comment: ADDITIONAL INFORMATION Testing performed by Liquid Chromatography-Tandem Mass Spectrometry (LC-MS/MS). This test was developed and its performance characteristics determined by [facility] in a manner consistent with CLIA requirements. This test has not been cleared or approved by the U.S. Food and Drug Administration. Test Performed by: [facility] [address] [place] [address] Mapping Editor: Carlos Manuel Case M.D. Ph.D.; CLIA# [id number] Performed By: #### T FTEST #### [facility] CLIA [id number] [address] [place] [address] #### 73217-6, 43837-8 #### [facility] CLIA [id number] [address] [place] [address] [place] [facility] CBC + DIFFon 11-12-2022 Baso # 0.00 x10EE3/UL Normal 0.00 - 0.10 [facility] Comment on above: Performed By: #### 2 50787 #### [facility],[address] [place] [address] 28607 Basophils/100 WBC (Bld) 0.8 % Normal 0.0 - 2.0 [facility] Comment on above: Performed By: #### 2 10011 #### [facility],[address] [place] [address]148 CBC + DIFF Normal [facility] Comment on above: Result Comment: CBC- COMPLETE BLOOD COUNT Performed By: #### 2 16528 #### [facility],[address] [place] [address] EO # 0.20 x10EE3/UL Normal 0.00 - 0.50 [facility] Comment on above: Performed By: #### 2 19151 #### [facility],[address] [place] [address]2890 Eosinophils/100 WBC (Bld) 3.3 % Normal 0.0 - 7.0 [facility] Comment on above: Performed By: #### 2 61828 #### [facility],[address] [place] [address] Erythrocyte distribution width (RBC) [Ratio] 13.7 % Normal 12.0 - 15.6 [facility] Comment on above: Performed By: #### 2 53312 #### [facility],[address] [place] [address] Hematocrit (Bld) [Volume fraction] 34.8 % Normal 34.0 - 46.0 [facility] Comment on above: Performed By: #### 2 16999 #### [facility],[address] [place] [address] Hemoglobin (Bld) [Mass/Vol] 11.5 g/dL Low 12.0 - 16.0 [facility] Comment on above: Performed By: #### 2 63212 #### [facility],[address] [place] [address] Lymph # 2.20 x10EE3/UL Normal 0.80 - 2.80 [facility] Comment on above: Performed By: #### 2 90497 #### [place] [address] Lymphocytes/100 WBC (Bld) 36.0 % Normal 20.0 - 45.0 [facility] Comment on above: Performed By: #### 2 68851 #### [facility],[address] [place] [address] MANUAL DIFF N/A Normal [facility] Comment on above: Performed By: #### 2 90577 #### [facility],[address] [place], [place] [address] MCH (RBC) [Entitic mass] 30 pg Normal 27 - 33 [facility] Comment on above: Performed By: #### 2 65851 #### [address],[place] [address] MCHC 33 X10 3 Normal 32 - 36 [facility] Comment on above: Performed By: #### 2 93927 #### [facility],[address] [place] [address] MCV (RBC) [Entitic vol] 91 fL Normal 80 - 99 [facility] Comment on above: Performed By: #### 2 18316 #### [facility],[address] [place] [address] Forest # 0.60 x10EE3/UL Normal 0.20 - 1.00 [facility] Comment on above: Performed By: #### 2 73428 #### [facility],[address] [place] [address] MONOS % 10.1 % High 0.0 - 10.0 [facility] Comment on above: Performed By: #### 2 05556 #### [facility],[address] [place] [address] Morphology Govind (Bld) [Interp] N/A Normal [facility] Comment on above: Result Comment: {CD] Performed By: #### 2 14170 #### [facility],[address] [place] [address] Neut # 3.00 x10EE3/UL Normal 1.50 - 7.10 [facility] Comment on above: Performed By: #### 2 75842 #### [facility],[address] [place] [address] Neutrophils/100 WBC (Bld) 49.8 % Normal 46.0 - 76.0 [facility] Comment on above: Performed By: #### 2 83629 #### [facility],[address] [place] [address] PLATELET 248 x10EE3/UL Normal 150 - 450 [facility] Comment on above: Performed By: #### 2 16514 #### [facility],[address] [place] [address] Platelet mean volume (Bld) [Entitic vol] 9.7 fL Normal 6.6 - 10.5 [facility] Comment on above: Result Comment: AUTO MATED DIFFERENTIAL Performed By: #### 2 14528 #### [facility],[address] [place] [address] RBC 3.82 x 10EE6/UL Low 4.10 - 5.30 [facility] Comment on above: Performed By: #### 2 85574 #### [facility],[address] [place] [address]159 WBC 6.0 x 10EE3/UL Normal 4.5 - 10.8 [facility] Comment on above: Performed By: #### 2 60996 #### [facility],[address] [place] [address] CMP with eGFRon 11-12-2022 AGE 52 years Normal [facility] Comment on above: Performed By: #### 2 94575 #### [facility],[address] [place] [address] Albumin [Mass/Vol] 3.7 g/dL Normal 3.4 - 5.0 [facility] Comment on above: Performed By: #### 2 85243 #### [facility],[address] [place] [address] Albumin/Globulin [Mass ratio] 1.2 {ratio} Normal 0.9 - 1.6 [facility] Comment on above: Performed By: #### 2 01722 #### [facility],[address] [place] [address]898 ALK PHOS 43 U/L Low 46 - 116 [facility] Comment on above: Performed By: #### 2 25334 #### [facility],[address] [place] [address] 18059 ALT [Catalytic activity/Vol] 35 U/L Normal 14 - 59 [facility] Comment on above: Performed By: #### 2 99010 #### [facility],[address] [place] [address]46[address] Anion gap [Moles/Vol] 11 mmol/L Normal 10 - 20 [facility] Comment on above: Performed By: #### 2 60456 #### [facility],[address] [place] [address] 65521 AST [Catalytic activity/Vol] 43 U/L High 13 - 39 [facility] Comment on above: Performed By: #### 2 41612 #### [facility],[address] [place] [address] B/C RATIO 24 ratio Normal 0 - 30 [facility] Comment on above: Performed By: #### 2 71044 #### [facility],[address] [place] [address] 14918 Bilirubin [Mass/Vol] 0.3 mg/dL Normal 0.2 - 1.0 [facility] Comment on above: Performed By: #### 2 40986 #### [facility],[address] [place] [address] Calcium [Mass/Vol] 8.8 mg/dL Normal 8.5 - 10.1 [facility] Comment on above: Performed By: #### 2 19980 #### [facility],[address] [place] [address] Chloride [Moles/Vol] 105 mmol/L Normal 98 - 107 [facility] Comment on above: Performed By: #### 2 28079 ####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 cancer Procedures HAY SCREENING W SANGITA SCREENING DIGITAL BREAST TOMOSYNTHESIS BI SCREENING MAMMOGRAPHY BI 2-VIEW BREAST INC CAD Antonieta Ruth MD [address] [place] [address] [facility] [address] [facility] [place] [address] Referral ID Status Reason Start Date Expiration Date V isits Requested Visits Authorized [id number] Closed Auto-Generate d Referral 05/22/2021 06/21/2022 1 1 [facility] for visit Narrative* Diagnostic Procedure Only (Routine) - Closed Specialty Diagnoses / Procedures Referred By Contac t Referred To [facility] Diagnoses Encounter for screening mammogram for breast cancer Dense breast tissue Procedures HAY SCREENING W SANGITA SCREENING DIGITAL BREAST TOMOSYNTHESIS BI SCREENING MAMMOGRAPHY BI 2-VIEW BREAST INC CAD Sugey Waldenee, FINANCIAL ASSISTANT.MVA OPERATOR [address] [place] [address] [facility] [address] [place] [address] Referral ID Status Reason Start Date Expiration Date V isits Requested Visits Authorized [id number] Closed Auto-Generate d Referral 06/11/2022 07/11/2023 1 1 [facility] Summary Purpose Family History No Family History Records Found Relationship Condition Age at Onset Recorded Date/T rachel Not Specified Malignant neoplasm of breast Unknown Hypertension Unknown Advance Directives No Advanced Directives Records FoundDocuments on File Type Date Recorded 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 Advance Directive(s) 02/27/2016 2:58 PM Advance Directive Response Recorded Date/ Time Living Will No August 06, 2018 2 :29pm Power of Cosmetic Chemist No August 06, 2018 2:29pm Chief Complaint and Reason for Visit Chief Complaint PAIN- COPY PCP Chief Complaint Admit Date COPY PCP February 12, 2024 7:50am PAIN- COPY PCP June 04, 2024 7:32 am Chief Complaint Admit Date PAIN- COPY PCP June 04, 2024 7:32 am UPPER BLEPH CONSULT July 09, 2024 3:27pm EORDERS July 21, 2024 8:09a m Reason for Visit Admit Date Brow ptosis, bilateral July 09, 2024 3:2 7pm Dermatochalasis of both upper eyelids Ma y 2024 3:27pm Additional Source Comments INFORMATION SOURCE (unrecogn ized section and content) DATE CREATED AUTHOR 05/07/2020 [facility] DATE CREATED AUTHOR AUTHOR'S ORGANIZ ATION 05/15/2023 [facility] DATE CREATED AUTHOR AUTHOR'S ORGANIZ ATION 08/15/2023 [facility] DATE CREATED AUTHOR AUTHOR'S ORGANIZ ATION 2024 [facility] Source Comments (unrecognize d section and content) In the event this informatio n is protected by the Federal Confidentiality of Alcohol and Drug Abuse Patient Records regulations: The Federal rules restrict any use of the information to criminally investigate or prosecute any alcohol or drug abuse patient.[facility] FoundationIn the event this information is protected by the Federal Confidentiality of Alcohol and Drug Abuse Patient Records regulations: The Federal rules restrict any use of the information to criminally investigate or prosecute any alcohol or drug abuse patient.[facility] FoundationIn the event this information is protected by the Federal Confidentiality of Alcohol and Drug Abuse Patient Records regulations: The Federal rules restrict any use of the information to criminally investigate or prosecute any alcohol or drug abuse patient.[facility] FoundationIn the event this information is protected by the Federal Confidentiality of Alcohol and Drug Abuse Patient Records regulations: The Federal rules restrict any use of the information to criminally investigate or prosecute any alcohol or drug abuse patient.[facility] FoundationIn the event this information is protected by the Federal Confidentiality of Alcohol and Drug Abuse Patient Records regulations: The Federal rules restrict any use of the information to criminally investigate or prosecute any alcohol or drug abuse patient.[facility] FoundationIn the event this information is protected by the Federal Confidentiality of Alcohol and Drug Abuse Patient Records regulations: The Federal rules restrict any use of the information to criminally investigate or prosecute any alcohol or drug abuse patient.[facility] FoundationIn the event this information is protected by the Federal Confidentiality of Alcohol and Drug Abuse Patient Records regulations: The Federal rules restrict any use of the information to criminally investigate or prosecute any alcohol or drug abuse patient.[facility] Care Teams (unrecognized sec tion and content) Firefighter Type One Relationship Specialty Start Date End Date Tasneem Johns PCP - General Family Practice 02/14/16 Team Status: Active Member Role Status Dates Dr. Tasneem Johns MD Family Provider Active Dr. Tasneem Johns MD Primary Care Provider Active Team Status: Inactive Member Role Status Dates Dr. Tasneem Johns MD Primary Care Provider Active Dr. Jessica Nichole MD Attending Provider, Referring Provider Active Firefighter Type One Relationship Specialty Start Date End Date Tasneem Johns PCP - General Family Medicine 02/14/16 Firefighter Type One Relationship Specialty Start Date End Date Tasneem Johns PCP - General Family Medicine 02/14/16 Firefighter Type One Relationship Specialty Start Date End Date Tasneem Johns PCP - General Family Medicine 02/14/16 Firefighter Type One Relationship Specialty Start Date End Date Tasneem Johns PCP - General Family Medicine 02/14/16 Firefighter Type One Relationship Specialty Start Date End Date Tasneem Johns PCP - General Family Medicine 02/14/16 Team Status: Inactive Member Role Status Dates Dr. Tasneem Johns MD Primary Care Provider Active Start: February 12, 2024 End: February 12, 2024 Dr. Jessica Nichole MD Attending Provider Active Start: February 12, 2024 End: February 12, 2024 Dr. Jessica Nichole MD Referring Provider Active Start: February 12, 2024 End: February 12, 2024 Team Status: Inactive Member Role Status Dates Dr. Tasneem Johns MD Primary Care Provider Active Start: June 04, 2024 End: June 04, 2024 Dr. Jessica Nichole MD Attending Provider Active Start: June 04, 2024 End: June 04, 2024 Dr. Jessica Nichole MD Referring Provider Active Start: June 04, 2024 End: June 04, 2024 Team Status: Active Member Role Status Dates Dr. Tasneem Johns MD Family Provider Active Mary Mcdowell WRAPPER OPERATOR, WRAPPER OPERATOR-C Primary Care Provider Active Team Status: Inactive Member Role Status Dates Dr. Tasneem Johns MD Primary Care Provider Active Start: July 09, 2024 End: July 09, 2024 Dr. Tasneem Johns MD Referring Provider Active Start: July 09, 2024 End: July 09, 2024 Dr. Fahad Alas MD Attending Provider Active Start: July 09, 2024 End: July 09, 2024 Team Status: Inactive Member Role Status Dates Mary Mcdowell WRAPPER OPERATOR, WRAPPER OPERATOR-C Primary Care Provider Active Start: July 19, 2024 End: July 19, 2024 Mary Mcdowell WRAPPER OPERATOR, WRAPPER OPERATOR-C Attending Provider Active S tart: July 19, 2024 End: July 19, 2024 Mary Mcdowell NP, WRAPPER OPERATOR-C Referring Provider Active S tart: July 19, 2024 End: July 19, 2024 Team Status: Inactive Member Role Status Dates Mary Mcdowell WRAPPER OPERATOR, WRAPPER OPERATOR-C Primary Care Provider Active Start: July 21, 2024 End: July 21, 2024 Mary Mcdowell WRAPPER OPERATOR, WRAPPER OPERATOR-C Attending Provider Active S tart: July 21, 2024 End: July 21, 2024 Mary Mcdowell NP, WRAPPER OPERATOR-C Referring Provider Active S tart: July 21, 2024 End: July 21, 2024 Goals (unrecognized section and content) Goals may be documented in a n alternate sectionGoals may be documented in an alternate sectionGoals may be documented in an alternate section Reason for Visit (unrecogniz ed section and content) Reason Comments Yearly Exam Reason Comments Patient Question FOR RECORDS PERTAINING TO PATIENTS WHO ARE OR HAVE BEEN ENROLLED IN A CHEMICAL DEPENDENCY/SUBSTANCEABUSE PROGRAM, SOME INFORMATION MAY BE OMITTED. This clinical summary was aggregated from multiple sources. Caution should be exercised in using it in the provision of clinical care. This summary normalizes information from multiple sources, and as a consequence, information in this document may materially change the coding, format and clinical context of patient data. In addition, data may be omitted in some cases. CLINICAL DECISIONS SHOULD BE BASED ON THE PRIMARY CLINICAL RECORDS. [employer] provides no warranty or guarantee of the accuracy or completeness of information in this document.
== END | disposition home or self-care (01) ==
PROVIDERS: PCP Nurse Practitioner Family; Referring Provider Nurse Practitioner Family; Visit Provider Nurse Practitioner Family
DX: Z12.31 Encounter for screening mammogram for malignant neoplasm of breast (principal)
CPT/HCPCS: 77063; 77067

== ENCOUNTER → 2024-11-18 | Outpatient (CLI) | payer BC, SELFPAY ==
--- OUTSIDE RECORDS SUMMARY | 2024-11-18 07:54 | XMS RPT_ITS | CCD ---
Author Organization [facility] Care Team Providers Care Straw Baler Name Role Phone Tanseem Johns Primary Care Provider BRISEIDA WALDEN Referring Unavailable TASNEEM JOHNS Primary Care Unavailable TASNEEM JOHNSER Primary Care Unavailable ALIESUGEYEE Attending Unavailable NAT TASNEEM ODALYS Primary Care Unavailable ALIE BRISEIDA Referring Unavailable SONNYIFF, TASNEEM S Consulting Unavailable MAUREEN REYES DR Admitting Unavailable MAUREEN REYES DR Attending Unavailable MAUREEN REYES DR Primary Care Unavailable PROVIDER, UNKNOWN Consulting Unavailable SONNYIFF, TASNEEM S Consulting Unavailable JESSICA NICHOLE Admitting [...] Tasneem Johns MD Primary Care Provider [phone] Dr. Jessica Nichole MD Attending Provider Dr. Jessica Nichole MD Referring Provider Nat MATIAS Dr. Tasneem S Primary Care Provider Dionisio MATIAS, Dr. Lopez Attending Provider Dionisio MATIAS, Dr. Lopez Referring Provider Nat MATIAS, Dr. Tasneem Wesley Referring Provider Evette MATIAS, Dr. Vásquez Attending Provider July CARDING UTILITY TENDER-C, Mary Primary Care Provider July CARDING UTILITY TENDER-C, Mary Attending Provider July CARDING UTILITY TENDER-C, Mary Referring Provider Sonnyiff, Tasneem S Referring Unavailable Jolliff, Tasneem S Primary Care Unavailable Fahad Alas Attending Unavailable Vellanki, Jessica Attending Unavailable July CARDING UTILITY TENDER, Mary Primary Care Unavailable Vellanki, Jessica Referring Unavailable July CARDING UTILITY TENDER, Mary Primary Care Unavailable July CARDING UTILITY TENDER, Mary Attending Unavailable July CARDING UTILITY TENDER, Mary Referring Unavailable Jolliff, Tasneem S Primary Care Unavailable Vellanki, Jessica Attending Unavailable Vellanki, Jessica Referring Unavailable Jolliff, Tasneem S Primary Care Unavailable Vellanki, Jessica Attending Unavailable Vellanki, Jessica Referring Unavailable Vellanki, Jessica Attending Unavailable Jolliff, Tasneem S Primary Care Unavailable Vellanki, Jessica Referring Unavailable July CARDING UTILITY TENDER, Mary Attending Unavailable July CARDING UTILITY TENDER, Mary Referring Unavailable July CARDING UTILITY TENDER, Mary Primary Care Unavailable Vellanki, Ejssica Attending Unavailable July CARDING UTILITY TENDER, Mary Primary Care Unavailable Vellanki, Jessica Referring Unavailable July CARDING UTILITY TENDER, Mary Attending Unavailable July CARDING UTILITY TENDER, Mary Referring Unavailable July CARDING UTILITY TENDER, Mary Primary Care Unavailable Vellanki, Jessica Attending Unavailable Jolliff, Tasneem S Primary Care Unavailable Vellanki, Jessica Referring Unavailable Medications Current Medications Medication Drug Class(es) Dates Sig (Normalized) Sig (Original) Amino Acids (5 sources) Start: 08-06-2018 Amino Acids (C omplete Amino Acid Mix) 200 GM powder Active 200 g PO DAILY August 06, 2018 12:00am SUPPLEMENT Start: 08-06-2018 Amino Acids (C omplete Amino Acid Mix) 200 GM powder Active 200 g PO DAILY August 06, 2018 12:00am Start: 08-06-2018 take 200 g by mouth once daily Amino Acids (Complete Amino Acid Mix) 200 GM powder Active 200 GM PO DAILY August 05, 2018 11:00pm ascorbic acid 1000 mg oral tablet (9 sources) Vitamin C Start: 08-06-2018 End: 06-11-2022 take 1 tablet by mouth once daily Ascorbic Acid (Vitamin C) (Vitamin C) 1,000 MG tablet Active 1000 mg PO DAILY August 06, 2018 12:00am SUPPLEMENT Comment on above: Take 1,000 mg by yas th once daily. cholecalciferol 0.125 mg oral tablet (12 sources) Vitamin D Start: 08-06-2018 take 1 tablet by mouth once daily Cholecalciferol (Vitamin D3) 5,000 UNIT tablet Active 5000 U PO DAILY August 06, 2018 12:00am SUPPLEMENT Cholecalciferol, Vitamin D3, 50 mcg (2,000 unit) cap Take by mouth. 0 Active Cholecalciferol, Vitamin D3, (VITAMIN D-3) 2,000 unit cap Take by mouth. 0 Active Comment on above: Take by mouth. Collagen Hydrosyate (5 sources) Start: 08-06-2018 take 10 g by mouth once daily Collagen Hydrosyate Active 10 g PO DAILY August 06, 2018 12:00am SUPPLEMENT Start: 08-06-2018 take 10 g by mouth [...] Comment on above: Take 1 tablet by yas one time only for 1 dose. hydroxychloroquine sulfate 200 mg oral tablet (12 sources) Antimalarial, Antirheumatic Agent Start: 08-06-2018 Hydroxychloroquine (Plaquenil) 200 MG tablet Active 1.5 {tbl} PO DAILY August 06, 2018 12:00am RA Start: 08-06-2018 take 1.5 tablets by mouth once daily Hydroxychloroquine (Plaquenil) 200 MG tablet Active 1.5 TABLET PO DAILY August 05, 2018 11:00pm hydrOXYchloroQUI NE (PLAQUENIL) 200 mg tablet Take by mouth twice daily. 0 Active Comment on above: Take by mouth twice daily. meloxicam 15 mg oral tablet (12 sources) Nonsteroidal Anti-inflammatory Drug Start: 11-15-19 18 take 1 tablet by mouth once daily Meloxicam (Mobic) 15 MG tablet Active 15 mg PO DAILY August 06, 2018 12:00am RA nitrofurantoin, macrocrystals 25 mg / nitrofurantoin, monohydrate 75 mg oral capsule (1 source) Nitrofuran Antibacterial Start: 06-22-19 End: 06-29-19 23 take 1 capsule by mouth twice daily nitrofurantoin monohydrate and macrocrystal (MACROBID) 100 mg capsule Take 1 capsule by mouth twice daily for 7 days. 14 capsule 0 06/21/2022 06/28/2022 Active Comment on above: Take 1 capsule by [facility] twice daily for 7 days. [facility]-3 Fatty Acids (1 source) Start: 08-07-19 19 take 1200 mg by mouth twice daily [facility] Fatty Acids Active 1200 MG PO TWICE A DAY August 05, 2018 11:00pm [facility] Fatty Acids 1,000 MG capsule (4 sources) Start: 08-07-19 19 take 1 capsule by mouth twice daily [facility] Fatty Acids 1,000 MG capsule Active 1200 mg PO TWICE A DAY August 06, 2018 12:00am SUPPLEMENT Start: 08-06-2018 take 1 capsule by [facility] twice daily [facility] Fatty Acids 1,000 MG capsule Active 1200 mg PO TWICE A DAY August 06, 2018 12:00am Vitamin B Complex (Vitamins B Complex) 1 EACH capsule (5 sources) Start: 08-06-2018 take 1 capsule by mouth once daily Vitamin B Complex (Vitamins B Complex) 1 EACH capsule Active 1 NMA PO DAILY August 06, 2018 12:00am SUPPLEMENT Start: 08-06-2018 take 1 capsule by mo [facility] once daily Vitamin B Complex (Vitamins B Complex) 1 EACH capsule Active 1 NMA PO DAILY August 06, 2018 12:00am Start: 08-06-2018 take 1 capsule by mo [facility] once daily Vitamin B Complex (Vitamins B Complex) 1 EACH capsule Active 1 EACH PO DAILY August 05, 2018 11:00pm Completed/Discontinued Medications Medication Drug Class(es) Dates Sig (Normalized) Sig (Original) 1 ml abatacept 125 mg/ml auto-injector (12 sources) Selective T Cell Costimulation Modulator Start: 05-25-2021 End: 07-09-2024 Abatacept (Orencia Clickject) 125 mg/mL auto-injector Discontinued 125 mg SC May 25, 2021 12:00am July 09, 2024 4:01pm Start: 05-14-2021 ORENCIA CLICKJ ECT 125 mg/mL 1 ml etanercept 50 mg/ml auto-injector (9 sources) Tumor Necrosis Factor [place] Start: 08-06-2018 End: 05-25-2021 inject 50 mg by subcutaneous injection once Etanercept (Enbrel) 50 MG/ML cartridge Discontinued 50 mg SQ MO August 06, 2018 12:00am May 25, 2021 4:03pm RA Start: 08-06-2018 End: 05-25-2021 inject 50 mg [...] Curamin potassium gluconate 2.5 meq oral tablet (5 sources) Start: 08-07-19 End: 07-10-19 take 1 tablet by mouth once daily Potassium Gluconate 99 MG tablet Discontinued 99 mg PO DAILY August 06, 2018 12:00am July 09, 2024 4:00pm SUPPLEMENT predniSONE 10 mg oral tablet (5 sources) Start: 08-07-19 End: 07-10-19 Prednisone 10 MG tablet Discontinued 10 mg PO NEEDED as needed for FOR FLARES August 06, 2018 12:00am July 09, 2024 4:00pm thyroid (detention) 30 mg oral tablet (4 sources) take 1 tablet by mouth once daily CARDING UTILITY TENDER THYROID 30 mg tablet Take 30 mg [...] Chronic Immunizations and screening for infectious disease (5 sources) Patient encounter status; Translations: [Encounter for screening for COVID-19] 05-25-2021 Episodic Mood disorders (7 sources) Depressive disorder; Translations: [Depression] Onset: 02-14-2016 02-14-2016 Chronic Nonmalignant breast conditions (1 source) Breast finding ; Translations: [Dense breast tissue] 05-12-2023 Episodic Other aftercare (1 source) 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 Dionisio on 2024 Neutrophils (Bld) [#/Vol] 2.2 10*3/uL 2.0-7.7 [facility] Anion gap in Serum or Plasma Ordered By: Jessicaregina Nichole on 2024 Anion gap [Moles/Vol] 11 mmol/L 5-15 [facility] Automated lymphocyte count a s percentage of total leukocytesOrdered By: Jessicaregina Nichole on 2024 Lymphocytes/100 WBC Auto (Unsp spec) 37.7 % 19-41 [facility] BUN/creatinine [facility]Or[facility] Urea nitrogen/Creatinine [Mass ratio] 17.2 mg/mg 10-20 [facility] Basophil percentageOrdered B y: Jessica Nichole on 2024 Basophils/100 WBC (Bld) 1.3 % High 0-1 [facility] Bilirubin, totalOrdered By: [facility] Dionisio on 2024 Bilirubin [Mass/Vol] 0.36 mg/dL 0.00-1.30 [facility] Breast imaging reportOrdered By: Parminder Barrera on 2024 Study report [facility] Services [address] [place] [address] SCRN MAMM (CAD)W/SANGITA BILAT MR#: [id number] Acct: [id number] Name: ROSE RYAN Rep #: [id number] : 1970 F 54 From: Vineet Barrera MD PCP: RIMA Arnold Status: REG CLI Study:SCRN MAMM (CAD)W/SANGITA BILAT Date of Exa m: 08/26/24 Exam# [id number] Ordering Dr: Garry Mcdowell NP CARDING UTILITY TENDER-C EXAM: SCRN MAMM (CAD)W/SANGITA BILAT DATE: 2024 CLINICAL HISTORY: F, Age 54 y/o , SCREENING Mother with history of breast cancer. TECHNIQUE: SCRN MAMM (CAD)W/SANGITA BILAT COMPARISON: Prior exam(s) dated outside examination dated May 12, 2023.. FINDINGS: TISSUE DENSITY: The breasts are extremely dense, which lowers the sensitivity ofmammography. Bilateral Breast Mammographic Findings: No significant masses, calcifications or other abnormalities are identified. No suspicious masses, areas of developing architectural distortion, or suspicious calcifications. There has been no significant interval change. BI/SCRN MAMM (CAD)W/SANGITA BILAT IMPRESSION: Stable examination. OVERALL FINAL ASSESSMENT BI-RADS 1: NEGATIVE. RECOMMEND ANNUAL MAMMOGRAPHIC SCREENING. RECOMMENDATION: Routine annual follow-up in 1 Year A letter with findings and recommendations will be mailed to the patient. Reading Location: [id number] CC: RIMA Mcdowell ~ [place] Machine Operator: Signed [facility] CBC W/Diff, Automatedon 06-2 Absolute Lymph 1.78 X10 3/uL Normal 0.83-4.51 [facility] Comment on above: Performed By: #### L [id number], L100.0100 #### [facility] [address] [place], [address] Absolute Neut 2.2 X10 3/uL Normal 2.0-7.7 [facility] Comment on above: Performed By: #### L 500.4050, L100.0100 #### [facility] [address] [place], [address] Basophils/100 WBC (Bld) 1.3 % High 0-1 [facility] Comment on above: Performed By: #### L 500.4050, L100.0100 #### [facility] [address] [place], [address] Eosinophils/100 WBC (Bld) 4.4 % Normal 0-5 [facility] Comment on above: Performed By: #### L 500.4050, L100.0100 #### [facility] [address] [place], [address] Erythrocyte distribution width (RBC) [Ratio] 13.6 % Normal 11.6-14.6 [facility] Comment on above: Performed By: #### L 500.4050, L100.0100 #### [facility] [address] [place], [address] Hematocrit (Bld) [Volume fraction] 35.7 % Low 37-47 [facility] Comment on above: Performed By: #### L 500.4050, L100.0100 #### [facility] [address] [place], [address] Hemoglobin (Bld) [Mass/Vol] 12.1 g/dL Normal 12.0-15.0 [facility] Comment on above: Performed By: #### L 500.4050, L100.0100 #### [facility] [address] [place], [address] IG% 0.000 Normal 0.0-0.9 [facility] Comment on above: Result Comment: IG% - Immature Granulocytes (promyelocytes, myelocytes and metamyelocytes) > 1% indicates that a LEFT SHIFT is Present. Performed By: #### L 500.4050, L100.0100 #### [facility] [address] [place], [address] Lymphocytes/100 WBC (Bld) 37.7 % Normal 19-41 [facility] Comment on above: Performed By: #### L 500.4050, L100.0100 #### [facility] [address] [place], [address] MCH (RBC) [Entitic mass] 30.5 pg Normal 27.0-32.0 [facility] Comment on above: Performed By: #### L 500.4050, L100.0100 #### [facility] [address] [place], [address] MCHC (RBC) [Mass/Vol] 33.9 g/dL Normal 32-36 [facility] Comment on above: Performed By: #### L 500.4050, L100.0100 #### [facility] [address] [place], [address] MCV (RBC) [Entitic vol] 89.9 fL Normal 81-99 [facility] Comment on above: Performed By: #### L 500.4050, L100.0100 #### [facility] [address] [place], [address] Monocytes/100 WBC (Bld) 9.1 % Normal 0-10 [facility] Comment on above: Performed By: #### L 500.4050, L100.0100 #### [facility] [address] [place], [address] Neutrophils/100 WBC (Bld) 47.5 % Normal 47-70 [facility] Comment on above: Performed By: #### L 500.4050, L100.0100 #### [facility] [address] [place], [address] Nucleated RBC (Bld) [#/Vol] 0 10*3/uL Normal 0-5 [facility] Comment on above: Performed By: #### L 500.4050, L100.0100 #### [facility] [address] [place], [address] Platelet mean volume (Bld) [Entitic vol] 11.3 fL Normal 6.2-12.0 [facility] Comment on above: Performed By: #### L 500.4050, L100.0100 #### [facility] [address] [place], [address] Platelets (Bld) [#/Vol] 224 10*3/uL Normal 150-450 [facility] Comment on above: Performed By: #### L 500.4050, L100.0100 #### [facility] [address] [place], [address] RBC (Bld) [#/Vol] 3.97 10*6/uL Low 4.2-5.4 [facility] Comment on above: Performed By: #### L 500.4050, L100.0100 #### [facility] [address] [place], [address] RDW SD 45.1 fl High 35.1-43.9 [facility] Comment on above: Performed By: #### L 500.4050, L100.0100 #### [facility] [address] [place], [address] WBC (Bld) [#/Vol] 4.7 10*3/uL Normal 4.4-11.0 [facility] Comment on above: Performed By: #### L 500.4050, L100.0100 #### [facility] [address] [place], [address] Carbon dioxide, total [Moles /volume] in Central venous bloodOrdered By: Jessica Nichole on 2024 CO2 [Moles/Vol] 25.5 mmol/L 21.0-32.0 [facility] Chloride assayOrdered By: Carlos Alberto Nichole on 2024 Chloride [Moles/Vol] 103 mmol/L 98-108 [facility] Comprehensive Metabolic Prof ilon 2024 Albumin [Mass/Vol] 4.5 g/dL Normal 3.5-5.0 [facility] Comment on above: Performed By: #### L 500.4050, L100.0100 #### [facility] [address] [place], [address] Albumin/Globulin [Mass ratio] 1.8 {ratio} Normal 0.9-2.4 [facility] Comment on above: Performed By: #### L 500.4050, L100.0100 #### [facility] [address] [place], [address] ALK PHOS 60 U/L Normal 35-104 [facility] Comment on above: Performed By: #### L 500.4050, L100.0100 #### [facility] [address] [place], [address] ALT [Catalytic activity/Vol] 25 U/L Normal <=34 [facility] Comment on above: Performed By: #### L 500.4050, L100.0100 #### [facility] [address] [place], [address] AST [Catalytic activity/Vol] 49 U/L High <=31 [facility] Comment on above: Performed By: #### L 500.4050, L100.0100 #### [facility] [address] [place], [address] Bilirubin [Mass/Vol] 0.36 mg/dL Normal 0.00-1.30 [facility] Comment on above: Performed By: #### L 500.4050, L100.0100 #### [facility] [address] [place], [address] BUN/CRE 17.2 RATIO Normal 10-20 [facility] Comment on above: Performed By: #### L 500.4050, L100.0100 #### [facility] [address] [place], [address] Calcium [Mass/Vol] 9.2 mg/dL Normal 7.6-11.0 [facility] Comment on above: Performed By: #### L 500.4050, L100.0100 #### [facility] [address] [place], [address] Chloride [Moles/Vol] 103 mmol/L Normal 98-108 [facility] Comment on above: Performed By: #### L 500.4050, L100.0100 #### [facility] [address] [place], [address] CO2 [Moles/Vol] 25.5 mmol/L Normal 21.0-32.0 [facility] Comment on above: Performed By: #### L 500.4050, L100.0100 #### [facility] [address] [place], [address] Creatinine [Mass/Vol] 0.94 mg/dL Normal 0.70-1.20 [facility] Comment on above: Performed By: #### L 500.4050, L100.0100 #### [facility] [address] [place], [address] GAP 11 Normal 5-15 [facility] Comment on above: Performed By: #### L 500.4050, L100.0100 #### [facility] [address] [place], [address] GFR/1.73 sq M.predicted among non-blacks MDRD (S/P/Bld) [Vol rate/Area] 72 mL/min/{1.73_m2} Normal >60 [facility] Comment on above: Result Comment: mL/m in/1.73m2 CKD-EPI Creatinine Equation (2020) Performed By: #### L 500.4050, L100.0100 #### [facility] [address] [place], [address] Globulin (S) [Mass/Vol] 2.5 g/dL Normal 2.2-4.2 [facility] Comment on above: Performed By: #### L 500.4050, L100.0100 #### [facility] [address] [place], [address] Glucose [Mass/Vol] 96 mg/dL Normal 70-99 [facility] Comment on above: Performed By: #### L 500.4050, L100.0100 #### [facility] [address] [place], [address] Potassium [Moles/Vol] 3.9 mmol/L Normal 3.3-5.1 [facility] Comment on above: Performed By: #### L 500.4050, L100.0100 #### [facility] [address] [place], [address] Sodium [Moles/Vol] 140 mmol/L Normal 133-145 [facility] Comment on above: Performed By: #### L 500.4050, L100.0100 #### [facility] [address] [place], [address] T PROT 7.0 g/dL Normal 5.9-8.4 [facility] Comment on above: Performed By: #### L 500.4050, L100.0100 #### [facility] [address] [place], [address] Urea nitrogen [Mass/Vol] 16 mg/dL Normal 4-19 [facility] Comment on above: Performed By: #### L 500.4050, L100.0100 #### [facility] [address] [place], [address] Eosinophil percentageOrdered By: Jessica Nichole on 2024 Eosinophils/100 WBC (Bld) 4.4 % 0-5 [facility] Erythrocyte distribution wid th ratioOrdered By: Jessica Nichole on 2024 Erythrocyte distribution width (RBC) [Ratio] 13.6 % 11.6-14.6 [facility] Erythrocyte distribution wid th standard deviationOrdered By: Jessica Nichole on 2024 Erythrocyte distribution width (RBC) [Ratio] 45.1 fl High 35.1-43.9 [facility] Glomerular filtration rate ( GFR) estimation/1.73 sq m using serum, plasma, or whole bOrdered By: Jessica Nichole on 2024 GFR/1.73 sq M.predicted among non-blacks MDRD (S/P/Bld) [Vol rate/Area] 72 mL/min/{1.73_m2} >60 [facility] Comment on above: mL/min/1.73m2 CKD-EP I Creatinine Equation (2020) Hematocrit Auto (Bld) [Volum e fraction]Ordered By: Jessica Nichole on 2024 Hematocrit (Bld) [Volume fraction] 35.7 % Low 37-47 [facility] Hemoglobin measurementOrdere d By: Jessica Nichole on 2024 Hemoglobin (Bld) [Mass/Vol] 12.1 g/dL 12.0-15.0 [facility] Immature granulocytes/100 WB C Auto (Bld)Ordered By: Jessica Nichole on 2024 Immature granulocytes/100 WBC (Bld) 0.000 % 0.0-0.9 [facility] Comment on above: IG% - Immature Granu locytes (promyelocytes, myelocytes and metamyelocytes) > 1% indicates that a LEFT SHIFT is Present. Laboratory - Chemistry and C hemistry - challengeOrdered By: Jessica Nichole on 2024 AST [Catalytic activity/Vol] 49 U/L High <32 [facility] MCV (mean corpuscular volume ) determinationOrdered By: Jessica Nichole on 2024 MCV (RBC) [Entitic vol] 89.9 fL 81-99 [facility] Mean corpuscular hemoglobin (MCH) determinationOrdered By: Jessica Nichole on 2024 MCH (RBC) [Entitic mass] 30.5 pg 27.0-32.0 [facility] Mean corpuscular hemoglobin concentration (MCHC) determinationOrdered By: Jessica Nichole on 2024 MCHC (RBC) [Mass/Vol] 33.9 g/dL 32-36 [facility] Mean platelet volume determi nationOrdered By: Jessica Nichole on 2024 Platelet mean volume (Bld) [Entitic vol] 11.3 fL 6.2-12.0 [facility] Monocyte percentageOrdered B y: Jessica Nichole on 2024 Monocytes/100 WBC (Bld) 9.1 % 0-10 [facility] Neutrophil percentageOrdered By: Jessica Nichole on 2024 Neutrophils/100 WBC (Bld) 47.5 % 47-70 [facility] Nucleated red blood cell per centageOrdered By: Jessica Nichole on 2024 Nucleated RBC/100 WBC (Bld) [Ratio] 0 % 0-5 [facility] Platelet countOrdered By: Carlos Alberto Nichole on 2024 Platelets (Bld) [#/Vol] 224 10*3/uL 150-450 [facility] Potassium measurement (mass/ volume)Ordered By: Jessica Nichole on 2024 Potassium (Unsp spec) [Mass/Vol] 3.9 mmol/L 3.3-5.1 [facility] RBC Auto (Bld) [#/Vol]Ordere d By: Jessica Nichole on 2024 RBC (Bld) [#/Vol] 3.97 10*6/uL Low 4.2-5.4 [facility] SCRN MAMM (CAD)W/SANGITA BILATo n 2024 SCRN MAMM (CAD)W/SANGITA BILAT [facility] Imaging Services [address] [place] [id number] SCRN MAMM (CAD)W/SANGITA BILAT MR#: [id number] Acct: [id number] Name: ROSE RYAN Rep #: [id number] : 1970 F 54 From: Parminder montaño MD PCP: RIMA Arnold Status: REG CLI Study: SCRN MAMM (CAD)W/SANGITA BILAT Date of Exam: 08/02 08/25 Exam# [id number] Ordering Dr: Mary Mcdowell NP CARDING UTILITY TENDER-C EXAM: SCRN MAMM (CAD)W/SANGITA BILAT DATE: 2024 CLINICAL HISTORY: F, Age 54 y/o , SCREENING Mother with history of breast cancer. TECHNIQUE: SCRN MAMM (CAD)W/SANGITA BILAT COMPARISON: Prior exam(s) dated outside examination dated May 12, 2023.. FINDINGS: TISSUE DENSITY: The breasts are extremely dense, which lowers the sensitivity of mammography. Bilateral Breast Mammographic Findings: No significant masses, calcifications or other abnormalities are identified. No suspicious masses, areas of developing architectural distortion, or suspicious calcifications. There has been no significant interval change. BI/SCRN MAMM (CAD)W/SANGITA BILAT IMPRESSION: Stable examination. OVERALL FINAL ASSESSMENT BI-RADS 1: NEGATIVE. RECOMMEND ANNUAL MAMMOGRAPHIC SCREENING. RECOMMENDATION: Routine annual follow-up in 1 Year A letter with findings and recommendations will be mailed to the patient. Reading Location: [id number] CC: RIMA Mcdowell [place] Machine Operator: Signed Normal [facility] Serum creatinine measurement (mass/volume)Ordered By: Jessica Nichole on 2024 Creatinine [Mass/Vol] 0.94 mg/dL 0.70-1.20 [facility] Serum globulin measurementOr dered By: Jessica Nichole on 2024 Globulin (S) [Mass/Vol] 2.5 g/dL 2.2-4.2 [facility] Serum glucose measurement (m ass/volume)Ordered By: Jessica Nichole on 2024 Glucose [Mass/Vol] 96 mg/dL 70-99 [facility] Serum or plasma alanine nelson otransferase (ALT) measurementOrdered By: Jessica Nichole on 2024 ALT [Catalytic activity/Vol] 25 U/L <35 [facility] Serum or plasma albumin abdoul urement (mass/volume)Ordered By: Jessica Nichole on 2024 Albumin [Mass/Vol] 4.5 g/dL 3.5-5.0 [facility] Serum or plasma albumin/glob ulin mass ratioOrdered By: Jessica Nichole on 2024 Albumin/Globulin [Mass ratio] 1.8 {ratio} 0.9-2.4 [facility] Serum or plasma alkaline felecia sphatase measurementOrdered By: Jessica Nichole on 2024 ALP [Catalytic activity/Vol] 60 U/L 35-104 [facility] Serum or plasma calcium abdoul urement (mass/volume)Ordered By: Jessica Nichole on 2024 Calcium [Mass/Vol] 9.2 mg/dL 7.6-11.0 [facility] Serum or plasma urea nitroge n measurement (mass/volume)Ordered By: Jessica Nichole on 2024 Urea nitrogen [Mass/Vol] 16 mg/dL 4-19 [facility] Sodium levelOrdered By: Scott Nichole on 2024 Sodium [Moles/Vol] 140 mmol/L 133-145 [facility] Total proteinOrdered By: Prince Nichole on 2024 Protein [Mass/Vol] 7.0 g/dL 5.9-8.4 [facility] White blood cell (WBC) count Ordered By: Jessica Nichole on 2024 WBC (Bld) [#/Vol] 4.7 10*3/uL 4.4-11.0 [facility] PAP I-G CT/NG/T RF HPVon ADEQ Comment Normal . [facility] Comment on above: Order Comment: Nery mccord Comment: [id number] Comment: No. of containers..01 ThinPrep Vial Result Comment: Sati sfactory for evaluation. No endocervical component is identified. Performed By: #### L 500.4050, L100.0100 #### [facility] [address] [place], [place], [id number] CHLAMY,NUC ACID Negative Normal Negative [facility] Comment on above: Order Comment: Nery mccord Comment: [id number] Comment: No. of containers..01 ThinPrep Vial Performed By: #### L 500.4050, L100.0100 #### [facility] [address] [place], [address] COMM . Normal . [facility] Comment on above: Order Comment: Nery mccord Comment: [id number] Comment: No. of containers..01 ThinPrep Vial Performed By: #### L 500.4050, L100.0100 #### [facility] [address] [place], [address] COMMENT Comment Normal . [facility] Comment on above: Order Comment: Ashleyi men Comment: [id number] Comment: No. of containers..01 ThinPrep Vial Result Comment: This liquid based ThinPrep(R) pap test was screened with the use of an image guided system. Performed By: #### L 500.4050, L100.0100 #### [facility] [address] [place], [address] DIAG Comment Normal . [facility] Comment on above: Order Comment: Nery mccord Comment: [id number] Comment: No. of containers..01 ThinPrep Vial Result Comment: NEGA TIVE FOR INTRAEPITHELIAL LESION OR MALIGNANCY. Performed By: #### L 500.4050, L100.0100 #### [facility] [address] [place], [address] GC BY NUC ACID Negative Normal Negative [facility] Comment on above: Order Comment: Nery mccord Comment: [id number] Comment: No. of containers..01 ThinPrep Vial Performed By: #### L 500.4050, L100.0100 #### [facility] [address] [place], [address] PAPSMR Comment Normal . [facility] Comment on above: Order Comment: Nery mccord Comment: [id number] Comment: No. of containers..01 ThinPrep Vial Result Comment: The Pap smear is a screening test designed to aid in the detection of premalignant and malignant conditions of the uterine cervix. It is not a diagnostic procedure and should not be used as the sole means of detecting cervical cancer. Both false-positive and false-negative reports do occur. Performed By: #### L 500.4050, L100.0100 #### [facility] [address] [place], [place], [id number] PERFORM Comment Normal . [facility] Comment on above: Order Comment: Speci men Comment: [id number] Comment: No. of containers..01 ThinPrep Vial Result Comment: Dilma Vergara, Quality Technician (ASCP) Performed By: #### L 500.4050, L100.0100 #### [facility] [address] [place], [place], [id number] TRICH VAG YURY Negative Normal Negative [facility] Comment on above: Order Comment: Speci men Comment: [id number] Comment: No. of containers..01 ThinPrep Vial Result Comment: Perf ormed at: WB - [facility] [address] [id number] Property Management Bookkeeper: Kristen Acosta MD, Phone: [phone] Performed at: =G - [facility] [address] [id number] Property Management Bookkeeper: Kristen Acosta MD, Phone: [phone] Performed By: #### L 500.4050, L100.0100 #### [facility] [address] [facility] [id number] Anion gap in Serum or Plasma Ordered By: Mary Mcdowell on 07-21-2024 Anion gap [Moles/Vol] 9 mmol/L 07-15 [facility] BUN/creatinine ratioOrdered By: Mary Mcdowell on 07-21-2024 Urea nitrogen/Creatinine [Mass ratio] 24.9 mg/mg High 12-20 [facility] Basic Metabolic Profile (BMP )on 07-21-2024 BUN/CRE 24.9 RATIO High 12-20 [facility] Comment on above: Order Comment: Order Date: 07/19/24 Order Info: 0667-1 - BMP Order Info: [id number] - LIPID Performed By: #### L 500.4100, L500.2500 #### [facility] [address] [place], [address] Calcium [Mass/Vol] 8.7 mg/dL Normal 7.6-11.0 [facility] Comment on above: Order Comment: Order Date: 07/19/24 Order Info: 0667- - BMP Order Info: [id number] - LIPID Performed By: #### L 500.4100, L500.2500 #### [facility] [address] [place], [address] Chloride [Moles/Vol] 103 mmol/L Normal 98-108 [facility] Comment on above: Order Comment: Order Date: 07/19/24 Order Info: 0667- - BMP Order Info: [id number] - LIPID Performed By: #### L 500.4100, L500.2500 #### [facility] [address] [place], [address] CO2 [Moles/Vol] 25.4 mmol/L Normal 21.0-32.0 [facility] Comment on above: Order Comment: Order Date: 07/19/24 Order Info: 0667-1 - BMP Order Info: [id number] - LIPID Performed By: #### L 500.4100, L500.2500 #### [facility] [address] [place], [address] Creatinine [Mass/Vol] 0.86 mg/dL Normal 0.70-1.20 [facility] Comment on above: Order Comment: Order Date: 07/19/24 Order Info: 0667-1 - BMP Order Info: [id number] - LIPID Performed By: #### L 500.4100, L500.2500 #### [facility] [address] [place], [address] GAP 9 Normal 5-15 [facility] Comment on above: Order Comment: Order Date: 07/19/24 Order Info: 06 - BMP Order Info: [id number] - LIPID Performed By: #### L 500.4100, L500.2500 #### [facility] [address] [place], [address] GFR/1.73 sq M.predicted among non-blacks MDRD (S/P/Bld) [Vol rate/Area] 81 mL/min/{1.73_m2} Normal >60 [facility] Comment on above: Order Comment: Order Date: 07/19/24 Order Info: 666-03 - BMP Order Info: [id number] - LIPID Result Comment: mL/m in/1.73m2 CKD-EPI Creatinine Equation (2020) Performed By: #### L 500.4100, L500.2500 #### [facility] [address] [place], [address] Glucose [Mass/Vol] 87 mg/dL Normal 70-99 [facility] Comment on above: Order Comment: Order Date: 07/19/24 Order Info: 06 - BMP Order Info: [id number] - LIPID Performed By: #### L 500.4100, L500.2500 #### [facility] [address] [place], [address] Potassium [Moles/Vol] 4.0 mmol/L Normal 3.3-5.1 [facility] Comment on above: Order Comment: Order Date: 07/19/24 Order Info: 06- - BMP Order Info: [id number] - LIPID Performed By: #### L 500.4100, L500.2500 #### [facility] [address] [place], [address] Sodium [Moles/Vol] 137 mmol/L Normal 133-145 [facility] Comment on above: Order Comment: Order Date: 07/19/24 Order Info: 06- - BMP Order Info: [id number] - LIPID Performed By: #### L 500.4100, L500.2500 #### [facility] [address] [place], [place], [id number] Urea nitrogen [Mass/Vol] 21 mg/dL High 06-19 [facility] Comment on above: Order Comment: Order Date: 07/19/24 Order Info: 0667-1 - BMP Order Info: [id number] - LIPID Performed By: #### L 500.4100, L500.2500 #### [facility] [address] [place], [place], [address] Calculated very low density lipoprotein (VLDL) cholesterol measurementOrdered By: Mary Mcdowell on 07-21-2024 Calculated very low density lipoprotein (VLDL) cholesterol measurement 11 mg/dL 5-40 [facility] Carbon dioxide, total [Moles /volume] in Central venous bloodOrdered By: Mary Mcdowell on 07-21-2024 CO2 [Moles/Vol] 25.4 mmol/L 21.0-32.0 [facility] Chloride assayOrdered By: Clark Mcdowell on 07-21-2024 Chloride [Moles/Vol] 103 mmol/L 98-108 [facility] Glomerular filtration rate ( GFR) estimation/1.73 sq m using serum, plasma, or whole bOrdered By: Mary Mcdowell on 07-21-2024 GFR/1.73 sq M.predicted among non-blacks MDRD (S/P/Bld) [Vol rate/Area] 81 mL/min/{1.73_m2} >60 [facility] Comment on above: mL/min/1.73m2 CKD-EP I Creatinine Equation (2020) LDL calc ser/plasOrdered By: Mary Mcdowell on 07-21-2024 Cholesterol in LDL [Mass/Vol] 130 mg/dL [facility] Comment on above: Stwwfgiost=053-649 m g/dL & Higher Jstw=126 mg/dL or greater Lipid Profileon 07-21-2024 CHOL:HDL 2.87 Normal [facility] Comment on above: Order Comment: Order Date: 07/19/24 Order Info: 0667-1 - BMP Order Info: [id number] - LIPID Performed By: #### L 500.4100, L500.2500 #### [facility] [address] [place], [address] Cholesterol [Mass/Vol] 217 mg/dL High <=200 [facility] Comment on above: Order Comment: Order Date: 07/19/24 Order Info: 0667- - BMP Order Info: [id number] - LIPID Result Comment: Chol esterol level, Desirable <200 mg/dL Borderline high cholesterol 200-239 mg/dL High cholesterol >=240 mg/dL Recommendations of the NCEP Adult Treatment Panel for the following risk-cutoff thresholds for the [place] population. Performed By: #### L 500.4100, L500.2500 #### [facility] [address] [place], [address] Cholesterol in HDL [Mass/Vol] 76 mg/dL Normal [facility] Comment on above: Order Comment: Order Date: 07/19/24 Order Info: 06 - [facility] Order Info: [id number] - LIPID Result Comment: Gracie onal Cholesterol Education Program (NCEP) guidelines: <40 mg/dL: Low HDL-cholesterol (major risk factor for CHD) >= 60 mg/dL: High HDL-cholesterol (negative risk factor for CHD) HDL-cholesterol is affected by a number of factors, e.g. smoking, exercise, hormones, sex and age. Performed By: #### L 500.4100, L500.2500 #### [facility] [address] [place], [address] Cholesterol in LDL [Mass/Vol] 130 mg/dL Normal [facility] Comment on above: Order Comment: Order Date: 07/19/24 Order Info: 0667- - BMP Order Info: [id number] - LIPID Result Comment: Bord xtrbfy=399-398 mg/dL Higher Rlqy=918 mg/dL or greater Performed By: #### L 500.4100, L500.2500 #### [facility] [address] [place], [address] Cholesterol in VLDL [Mass/Vol] 11 mg/dL Normal 5-40 [facility] Comment on above: Order Comment: Order Date: 07/19/24 Order Info: 0667-1 - BMP Order Info: [id number] - LIPID Performed By: #### L 500.4100, L500.2500 #### [facility] [address] [place], [address] Triglyceride [Mass/Vol] 57 mg/dL Normal [facility] Comment on above: Order Comment: Order Date: 07/19/24 Order Info: 0667-1 - BMP Order Info: [id number] - LIPID Result Comment: The drugs N-Acetylcysteine and Metamizole may falsely depress this assay. Normal range: <150 mg/dL Borderline High: 150-199 mg/dL High: 200-499 mg/dL Very High: >500 mg/dL Performed By: #### L 500.4100, L500.2500 #### [facility] [address] [place], [address] Potassium measurement (mass/ volume)Ordered By: Mary Mcdowell on 07-21-2024 Potassium (Unsp spec) [Mass/Vol] 4.0 mmol/L 3.3-5.1 [facility] Screening total cholesterol/ high density lipoprotein (HDL) cholesterol ratioOrdered By: Mary Mcdowell on 07-21-2024 Cholesterol.total/Cho lesterol in HDL [Mass ratio] 2.87 {ratio} [facility] Serum creatinine measurement (mass/volume)Ordered By: Mary Mcdowell on 07-21-2024 Creatinine [Mass/Vol] 0.86 mg/dL 0.70-1.20 [facility] Serum glucose measurement (m ass/volume)Ordered By: Mary Mcdowell on 07-21-2024 Glucose [Mass/Vol] 87 mg/dL 70-99 [facility] Serum or plasma calcium abdoul urement (mass/volume)Ordered By: Mary Mcdowell on 07-21-2024 Calcium [Mass/Vol] 8.7 mg/dL 7.6-11.0 [facility] Serum or plasma cholesterol in HDL measurement (mass/volume)Ordered By: Mary Mcdowell on 07-21-2024 Cholesterol in HDL [Mass/Vol] 76 mg/dL >40 [facility] Comment on above: National Cholesterol Education Program (NCEP) guidelines:<40 mg/dL: Low HDL-cholesterol (major risk factor for CHD)>= 60 mg/dL: High HDL-cholesterol (negative risk factor for CHD)HDL-cholesterol is affected by a number of factors, e.g. smoking, exercise, hormones, sex and age. Serum or plasma cholesterol measurement (mass/volume)Ordered By: Mary Mcdowell on 07-21-2024 Cholesterol [Mass/Vol] 217 mg/dL High <201 [facility] Comment on above: Cholesterol level, D esirable <200 mg/dLBorderline high cholesterol 200-239 mg/dLHigh cholesterol >=240 mg/dLRecommendations of the NCEP Adult Treatment Panel for the following risk-cutoff thresholds for the [place] population. Serum or plasma urea nitroge n measurement (mass/volume)Ordered By: Mary Mcdowell on 07-21-2024 Urea nitrogen [Mass/Vol] 21 mg/dL High 4-19 [facility] Sodium levelOrdered By: Mary Mcdowell on 07-21-2024 Sodium [Moles/Vol] 137 mmol/L 133-145 [facility] Triglycerides measurementOrd ered By: Mary Mcdowell on 07-21-2024 Triglyceride [Mass/Vol] 57 mg/dL <199 [facility] Comment on above: The drugs N-Acetylcy steine and Metamizole may falsely depress this assay. Normal range: <150 mg/dLBorderline High: 150-199 mg/dLHigh: 200-499 mg/dLVery High: >500 mg/dL Cervical or vagninal specime n microscopic examination by cytology stain (reported asOrdered By: Mary Mcdowell on 07-19-2024 Cytology report Cyto stain Doc (Cvx/Vag) Comment . [facility] Comment on above: The Pap smear is a s creening test designed to aid in thedetection of premalignant and malignant conditions of theuterine cervix. It is not a diagnostic procedure andshould not be used as the sole means of detecting cervicalcancer. Both false-positive and false-negative reports dooccur. Laboratory - CytologyOrdered By: Mary Mcdowell on 07-19-2024 Quality Technician Cyto stain Nom (Cvx/Vag) [ID] Comment . [facility] Comment on above: Katarina hull, Quality Technician (ASCP) Laboratory - Miscellaneous t estsOrdered By: Mary Mcdowell on 07-19-2024 Service comment (Unsp spec) [Interp] . . [facility] Neisseria gonorrhoeae nuclei c acid detection by amplified probe techniqueOrdered By: Mary Mcdowell on 07-19-2024 N. gonorrhoeae DNA YURY+probe Ql (Unsp spec) Negative Negative [facility] No Panel InformationOrdered By: Mary Mcdowell on 07-19-2024 Pap Smear Specimen Adequacy Comment . [facility] Comment on above: Satisfactory for sterling luation. No endocervical component is identified. Trichomonas vaginalis detect ion by nucleic acid amplificationOrdered By: Mary Mcdowell on 07-19-2024 C. trachomatis DNA YURY+probe Ql (Unsp spec) Negative Negative [facility] Comment on above: *Additional results available. Contact laboratory/see report*Performed at: - [facility] [id number] Director: Kristen Acosta MD, Phone: [phone] at: = - [facility] [address] [id number] Director: Kristen Acosta MD, Phone: [phone] Plastic Surgery Visit Report on 07-09-2024 Plastic Surgery Visit Report [facility] [address], [address] [place] [address] OFFICE VISIT Date of Service: 07/09/24 MR#: [id number] Acct: [id number] Name: ROSE RYAN Rep #: [id number] : 1970 Provider: Dr. Fahad Alas MD Age/Sex: 53/F Location: [facility] Status: Signed Intake Vital Signs 05/25/21 16:00 [...] DAILY SUPPLEMENT 08/06/18 07/09/24 History Complex capsule) [facility] Medical History Arthritis Surgical History History of [...] also dis (more content not included)... Normal [facility] Absolute lymphocyte countOrd ered By: Jessica Nichole on 06-04-2024 Lymphocytes Auto (Unsp spec) [#/Vol] 2.26 10*3/uL 0.83-4.51 [facility] Absolute neutrophil countOrd ered By: Jessica Nichole on 06-04-2024 Neutrophils (Bld) [#/Vol] 4.1 10*3/uL 2.0-7.7 [facility] Anion gap in Serum or Plasma Ordered By: Jessica Nichole on 06-04-2024 Anion gap [Moles/Vol] 11 mmol/L 5- [facility] Automated lymphocyte count a s percentage of total leukocytesOrdered By: Jessicaregina Nichole on 06-04-2024 Lymphocytes/100 WBC Auto (Unsp spec) 30.7 % - [facility] BUN/creatinine ratioOrdered By: [facility] Dionisio on 06-04-2024 Urea nitrogen/Creatinine [Mass ratio] 12.7 mg/mg 10- [facility] Basophil percentageOrdered B y: Jessica Nichole on 06-04-2024 Basophils/100 WBC (Bld) 1.1 % High 0-1 [facility] Bilirubin, totalOrdered By: Jessicaregina Nichole on 06-04-2024 Bilirubin [Mass/Vol] 0.33 mg/dL 0.00-1.30 [facility] CBC W/Diff, Automatedon Absolute Lymph 2.26 X10 3/uL Normal 0.83-4.51 [facility] Comment on above: Performed By: #### L 500.4050, L100.0100 #### [facility] [address] [place], [address] Absolute Neut 4.1 X10 3/uL Normal 2.0-7.7 [facility] Comment on above: Performed By: #### L 500.4050, L100.0100 #### [facility] [address] [place], [address] Basophils/100 WBC (Bld) 1.1 % High 0-1 [facility] Comment on above: Performed By: #### L 500.4050, L100.0100 #### [facility] [address] [place], [address] Eosinophils/100 WBC (Bld) 3.8 % Normal 0-5 [facility] Comment on above: Performed By: #### L 500.4050, L100.0100 #### [facility] [address] [place], [address] Erythrocyte distribution width (RBC) [Ratio] 13.0 % Normal 11.6-14.6 [facility] Comment on above: Performed By: #### L 500.4050, L100.0100 #### [facility] [address] [place], [address] Hematocrit (Bld) [Volume fraction] 36.7 % Low 37-47 [facility] Comment on above: Performed By: #### L 500.4050, L100.0100 #### [facility] [address] [place], [address] Hemoglobin (Bld) [Mass/Vol] 12.5 g/dL Normal 12.0-15.0 [facility] Comment on above: Performed By: #### L 500.4050, L100.0100 #### [facility] [address] [place], [address] IG% 0.300 Normal 0.0-0.9 [facility] Comment on above: Result Comment: IG% - Immature Granulocytes (promyelocytes, myelocytes and metamyelocytes) > 1% indicates that a LEFT SHIFT is Present. Performed By: #### L 500.4050, L100.0100 #### [facility] [address] [place], [address] Lymphocytes/100 WBC (Bld) 30.7 % Normal 19-41 [facility] Comment on above: Performed By: #### L 500.4050, L100.0100 #### [facility] [address] [place], [address] MCH (RBC) [Entitic mass] 30.6 pg Normal 27.0-32.0 [facility] Comment on above: Performed By: #### L 500.4050, L100.0100 #### [facility] [address] [place], [address] MCHC (RBC) [Mass/Vol] 34.1 g/dL Normal 32-36 [facility] Comment on above: Performed By: #### L 500.4050, L100.0100 #### [facility] [address] [place], [address] MCV (RBC) [Entitic vol] 89.7 fL Normal 81-99 [facility] Comment on above: Performed By: #### L 500.4050, L100.0100 #### [facility] [address] [place], [address] Monocytes/100 WBC (Bld) 9.1 % Normal 0-10 [facility] Comment on above: Performed By: #### L 500.4050, L100.0100 #### [facility] [address] [place], [address] Neutrophils/100 WBC (Bld) 55.0 % Normal 47-70 [facility] Comment on above: Performed By: #### L 500.4050, L100.0100 #### [facility] [address] [place], [address] Nucleated RBC (Bld) [#/Vol] 0 10*3/uL Normal 0-5 [facility] Comment on above: Performed By: #### L 500.4050, L100.0100 #### [facility] [address] [place], [address] Platelet mean volume (Bld) [Entitic vol] 11.5 fL Normal 6.2-12.0 [facility] Comment on above: Performed By: #### L 500.4050, L100.0100 #### [facility] [address] [place], [address] Platelets (Bld) [#/Vol] 236 10*3/uL Normal 150-450 [facility] Comment on above: Performed By: #### L 500.4050, L100.0100 #### [facility] [address] [place], [address] RBC (Bld) [#/Vol] 4.09 10*6/uL Low 4.2-5.4 [facility] Comment on above: Performed By: #### L 500.4050, L100.0100 #### [facility] [address] [place], [address] RDW SD 43.1 fl Normal 35.1-43.9 [facility] Comment on above: Performed By: #### L 500.4050, L100.0100 #### [facility] [address] [place], [address] WBC (Bld) [#/Vol] 7.4 10*3/uL Normal 4.4-11.0 [facility] Comment on above: Performed By: #### L 500.4050, L100.0100 #### [facility] [address] [place], [address] Carbon dioxide, total [Moles /volume] in Central venous bloodOrdered By: Jessica Nichole on 06-04-2024 CO2 [Moles/Vol] 25.6 mmol/L 21.0-32.0 [facility] Chloride assayOrdered By: Carlos Alberto Nichole on 06-04-2024 Chloride [Moles/Vol] 103 mmol/L 98-108 [facility] Comprehensive Metabolic Prof ilon 06-04-2024 Albumin [Mass/Vol] 4.3 g/dL Normal 3.5-5.0 [facility] Comment on above: Performed By: #### L 500.4050, L100.0100 #### [facility] [address] [place], [address] Albumin/Globulin [Mass ratio] 1.6 {ratio} Normal 0.9-2.4 [facility] [facility] Comment on above: Performed By: #### L 500.4050, L100.0100 #### [facility] [address] [place], [address] ALK PHOS 54 U/L Normal 35-104 [facility] Comment on above: Performed By: #### L 500.4050, L100.0100 #### [facility] [address] [place], [address] ALT [Catalytic activity/Vol] 24 U/L Normal <=34 [facility] Comment on above: Performed By: #### L 500.4050, L100.0100 #### [facility] [address] [place], [address] AST [Catalytic activity/Vol] 46 U/L High <=31 [facility] Comment on above: Performed By: #### L 500.4050, L100.0100 #### [facility] [address] [place], [address] Bilirubin [Mass/Vol] 0.33 mg/dL Normal 0.00-1.30 [facility] Comment on above: Performed By: #### L 500.4050, L100.0100 #### [facility] [address] [place], [address] BUN/CRE 12.7 RATIO Normal 10-20 [facility] Comment on above: Performed By: #### L 500.4050, L100.0100 #### [facility] [address] [place], [address] Calcium [Mass/Vol] 9.0 mg/dL Normal 7.6-11.0 [facility] Comment on above: Performed By: #### L 500.4050, L100.0100 #### [facility] [address] [place], [address] Chloride [Moles/Vol] 103 mmol/L Normal 98-108 [facility] Comment on above: Performed By: #### L 500.4050, L100.0100 #### [facility] [address] [place], [address] CO2 [Moles/Vol] 25.6 mmol/L Normal 21.0-32.0 [facility] Comment on above: Performed By: #### L 500.4050, L100.0100 #### [facility] [address] [place], [address] Creatinine [Mass/Vol] 0.95 mg/dL Normal 0.70-1.20 [facility] Comment on above: Performed By: #### L 500.4050, L100.0100 #### [facility] [address] [place], [address] GAP 11 Normal 5-15 [facility] Comment on above: Performed By: #### L 500.4050, L100.0100 #### [facility] [address] [place], [address] GFR/1.73 sq M.predicted among non-blacks MDRD (S/P/Bld) [Vol rate/Area] 71 mL/min/{1.73_m2} Normal >60 [facility] Comment on above: Result Comment: mL/m in/1.73m2 CKD-EPI Creatinine Equation (2020) Performed By: #### L 500.4050, L100.0100 #### [facility] [address] [place], [address] Globulin (S) [Mass/Vol] 2.7 g/dL Normal 2.2-4.2 [facility] Comment on above: Performed By: #### L 500.4050, L100.0100 #### [facility] [address] [place], [address] Glucose [Mass/Vol] 93 mg/dL Normal 70-99 [facility] Comment on above: Performed By: #### L 500.4050, L100.0100 #### [facility] [address] [place], [address] Potassium [Moles/Vol] 3.9 mmol/L Normal 3.3-5.1 [facility] Comment on above: Performed By: #### L 500.4050, L100.0100 #### [facility] [address] [place], [address] Sodium [Moles/Vol] 139 mmol/L Normal 133-145 [facility] Comment on above: Performed By: #### L 500.4050, L100.0100 #### [facility] [address] [place], [address] T PROT 6.9 g/dL Normal 5.9-8.4 [facility] Comment on above: Performed By: #### L 500.4050, L100.0100 #### [facility] [address] [place], [address] Urea nitrogen [Mass/Vol] 12 mg/dL Normal 4-19 [facility] Comment on above: Performed By: #### L 500.4050, L100.0100 #### [facility] [address] [place], [address] Eosinophil percentageOrdered By: Jessica Nichole on 06-04-2024 Eosinophils/100 WBC (Bld) 3.8 % 0-5 [facility] Erythrocyte distribution wid th (RBC) [Ratio]Ordered By: Jessica Nichole on 06-04-2024 Erythrocyte distribution width (RBC) [Entitic vol] 43.1 fL 35.1-43.9 [facility] Erythrocyte distribution wid th ratioOrdered By: Jessica Nichoel on 06-04-2024 Erythrocyte distribution width (RBC) [Ratio] 13.0 % 11.6-14.6 [facility] Erythrocyte distribution wid th standard deviationOrdered By: Jessica Nichole on 06-04-2024 Erythrocyte distribution width (RBC) [Ratio] 43.1 fl 35.1-43.9 [facility] GFR/1.73 sq M.predicted javier g non-blacks MDRD (S/P/Bld) [Vol rate/Area]Ordered By: Jessica Nichole on 06-04-2024 Estimated GFR (MDRD) Non-Af Amer 71 >60 [facility] Comment on above: mL/min/1.73m2 CKD-EP I Creatinine Equation (2020) Glomerular filtration rate ( GFR) estimation/1.73 sq m using serum, plasma, or whole bOrdered By: Jessica Nichole on 06-04-2024 GFR/1.73 sq M.predicted among non-blacks MDRD (S/P/Bld) [Vol rate/Area] 71 mL/min/{1.73_m2} >60 [facility] Comment on above: mL/min/1.73m2 CKD-EP I Creatinine Equation (2020) Hematocrit Auto (Bld) [Volum e fraction]Ordered By: Jessica Nichole on 06-04-2024 Hematocrit (Bld) [Volume fraction] 36.7 % Low 37-47 [facility] Hemoglobin measurementOrdere d By: Jessica Nichole on 06-04-2024 Hemoglobin (Bld) [Mass/Vol] 12.5 g/dL 12.0-15.0 [facility] Immature granulocytes/100 WB C Auto (Bld)Ordered By: Jessica Nichole 06-04-2024 Immature granulocytes/100 WBC (Bld) 0.300 % 0.0-0.9 [facility] Comment on above: IG% - Immature Granu locytes (promyelocytes, myelocytes and metamyelocytes) > 1% indicates that a LEFT SHIFT is Present. Laboratory - Chemistry and C hemistry - challengeOrdered By: Jessica Nichole on 06-04-2024 AST [Catalytic activity/Vol] 46 U/L High <32 [facility] Lymphocytes Auto (Unsp spec) [#/Vol]Ordered By: Jessica Nichole on 06-04-2024 Lymphocytes (Bld) [#/Vol] 2.26 10*3/uL 0.83-4.51 [facility] Lymphocytes/100 WBC Auto (Un sp spec)Ordered By: Jessica Nichole on 06-04-2024 Lymphocytes/100 WBC (Bld) 30.7 % 19-41 [facility] MCV (mean corpuscular volume ) determinationOrdered By: Jessica Nichole on 06-04-2024 MCV (RBC) [Entitic vol] 89.7 fL 81-99 [facility] Mean corpuscular hemoglobin (MCH) determinationOrdered By: Jessica Nichole on 06-04-2024 MCH (RBC) [Entitic mass] 30.6 pg 27.0-32.0 [facility] Mean corpuscular hemoglobin concentration (MCHC) determinationOrdered By: Jessica Nichole on 06-04-2024 MCHC (RBC) [Mass/Vol] 34.1 g/dL 32-36 [facility] Mean platelet volume determi nationOrdered By: Jessica Nichole on 06-04-2024 Platelet mean volume (Bld) [Entitic vol] 11.5 fL 6.2-12.0 [facility] Monocyte percentageOrdered B y: Jessica Nichole on 06-04-2024 Monocytes/100 WBC (Bld) 9.1 % 0-10 [facility] Neutrophil percentageOrdered By: Jessica Nichole on 06-04-2024 Neutrophils/100 WBC (Bld) 55.0 % 47-70 [facility] Nucleated red blood cell per centageOrdered By: Jessica Nichole on 06-04-2024 Nucleated RBC/100 WBC (Bld) [Ratio] 0 % 0-5 [facility] Platelet countOrdered By: Carlos Alberto Nichole on 06-04-2024 Platelets (Bld) [#/Vol] 236 10*3/uL 150-450 [facility] Potassium (Unsp spec) [Mass/ Vol]Ordered By: Jessica Nichole on 06-04-2024 Potassium [Moles/Vol] 3.9 mmol/L 3.3-5.1 [facility] Potassium measurement (mass/ volume)Ordered By: Jessica Nichole on 06-04-2024 Potassium (Unsp spec) [Mass/Vol] 3.9 mmol/L 3.3-5.1 [facility] RBC Auto (Bld) [#/Vol]Ordere d By: Jessica Nichole on 06-04-2024 RBC (Bld) [#/Vol] 4.09 10*6/uL Low 4.2-5.4 [facility] Serum creatinine measurement (mass/volume)Ordered By: Jessica Nichole on 06-04-2024 Creatinine [Mass/Vol] 0.95 mg/dL 0.70-1.20 [facility] Serum globulin measurementOr dered By: Jessica Nichole on 06-04-2024 Globulin (S) [Mass/Vol] 2.7 g/dL 2.2-4.2 [facility] Serum glucose measurement (m ass/volume)Ordered By: Jessica Nichole on 06-04-2024 Glucose [Mass/Vol] 93 mg/dL 70-99 [facility] Serum or plasma alanine nelson otransferase (ALT) measurementOrdered By: Jessica Nichole 06-04-2024 ALT [Catalytic activity/Vol] 24 U/L <35 [facility] Serum or plasma albumin abdoul urement (mass/volume)Ordered By: Jessica Nichole 06-04-2024 Albumin [Mass/Vol] 4.3 g/dL 3.5-5.0 [facility] Serum or plasma albumin/glob ulin mass ratioOrdered By: Jessica Nichole 06-04-2024 Albumin/Globulin [Mass ratio] 1.6 {ratio} 0.9-2.4 [facility] Serum or plasma alkaline felecia sphatase measurementOrdered By: Jessica Nichole 06-04-2024 ALP [Catalytic activity/Vol] 54 U/L 35-104 [facility] Serum or plasma calcium abdoul urement (mass/volume)Ordered By: Jessica Nichole 06-04-2024 Calcium [Mass/Vol] 9.0 mg/dL 7.6-11.0 [facility] Serum or plasma urea nitroge n measurement (mass/volume)Ordered By: Jessica Nichole on 06-04-2024 Urea nitrogen [Mass/Vol] 12 mg/dL 4-19 [facility] Sodium levelOrdered By: Scott Nichole on 06-04-2024 Sodium [Moles/Vol] 139 mmol/L 133-145 [facility] Total proteinOrdered By: Prince Nichole on 06-04-2024 Protein [Mass/Vol] 6.9 g/dL 5.9-8.4 [facility] White blood cell (WBC) count Ordered By: Jessica Nichole on 06-04-2024 WBC (Bld) [#/Vol] 7.4 10*3/uL 4.4-11.0 [facility] Quantiferon TB-Gold+on 02-15 QFT MITOGEN YASMIN > 10.00 Normal . [facility] Comment on above: Performed By: #### L 3400.8000 #### [facility] [address] [place], [place], [id number] QFT NIL VALUE 0.07 IU/mL Normal . [facility] Comment on above: Performed By: #### L 3400.8000 #### [facility] [address] [place], [place], [id number] QFT TB GOLD+ Comment Normal . [facility] Comment on above: Result Comment: Tay tiFERON-TB [...] test. Performed By: #### L 3400.8000 #### [facility] [address] [place], [place], [id number] QFT TB POS CRIT Negative Normal Negative [facility] Comment on above: Result Comment: No r [...] interferon gamma. Chemiluminescence immunoassay methodology Performed at: [facility] [id number] [employer] Bookkeeper: Raad Wolfe PhD, Phone: [phone] Performed By: #### L 3400.8000 #### [facility] [address] [facility] [place], [address] QFT TB1+ AG YASMIN 0.06 IU/mL Normal . [facility] Comment on above: Performed By: #### L 3400.8000 #### [facility] [address] [place], [address] QFT TB2+ AG YASMIN 0.06 IU/mL Normal . [facility] Comment on above: Performed By: #### L 3400.8000 #### [facility] [address] [facility] [place], [place], [id number] M. tuberculosis tuberculin s juan IFN-g Ql (Bld)Ordered By: Jessica Nichole on 02-12-2024 TB Test (QFT) Antigen 1 0.06 IU/mL . [facility] Quantiferon-TB Gold Plus shannon tOrdered By: Jessica Nichole on 02-12-2024 TB Test (QFT) Comment . [facility] Comment on above: QuantiFERON-TB Gold Plus is [...] Test (QFT) Antigen 2 0.06 IU/mL . [facility] TB Test (QFT) Mitogen > 10.00 IU/mL . [facility] TB Test (QFT) Nil 0.07 IU/mL . [facility] TB Test (QFT) Positive Criteria Negative Negative [facility] Comment on above: No response to M [...] the productionof interferon gamma. Chemiluminescence immunoassaymethodologyPerformed at: [facility] [id number] Director: Raad Wolfe PhD, Phone: [phone] CBC W/Diff, Automatedon 12-0 Absolute Lymph 1.82 X10 3/uL Normal 0.83-4.51 [facility] Comment on above: Performed By: #### L 500.4050, L100.0100 #### [facility] [address] [place], [address] Absolute Neut 2.8 X10 3/uL Normal 2.0-7.7 [facility] Comment on above: Performed By: #### L 500.4050, L100.0100 #### [facility] [address] [place], [address] Basophils/100 WBC (Bld) 0.9 % Normal 0-1 [facility] Comment on above: Performed By: #### L 500.4050, L100.0100 #### [facility] [address] [place], [address] Eosinophils/100 WBC (Bld) 3.4 % Normal 0-5 [facility] Comment on above: Performed By: #### L 500.4050, L100.0100 #### [facility] [address] [place], [address] Erythrocyte distribution width (RBC) [Ratio] 13.0 % Normal 11.6-14.6 [facility] Comment on above: Performed By: #### L 500.4050, L100.0100 #### [facility] [address] [place], [address] Hematocrit (Bld) [Volume fraction] 37.2 % Normal 37-47 [facility] Comment on above: Performed By: #### L 500.4050, L100.0100 #### [facility] [address] [place], [address] Hemoglobin (Bld) [Mass/Vol] 12.2 g/dL Normal 12.0-15.0 [facility] Comment on above: Performed By: #### L 500.4050, L100.0100 #### [facility] [address], [address] IG% 0.400 Normal 0.0-0.9 [facility] Comment on above: Result Comment: IG% - Immature Granulocytes (promyelocytes, myelocytes and metamyelocytes) > 1% indicates that a LEFT SHIFT is Present. Performed By: #### L 500.4050, L100.0100 #### [facility] [address] [place], [address] Lymphocytes/100 WBC (Bld) 33.0 % Normal 19-41 [facility] Comment on above: Performed By: #### L 500.4050, L100.0100 #### [facility] [address] [place], [address] MCH (RBC) [Entitic mass] 29.7 pg Normal 27.0-32.0 [facility] Comment on above: Performed By: #### L 500.4050, L100.0100 #### [facility] [address] [place], [address] MCHC (RBC) [Mass/Vol] 32.8 g/dL Normal 32-36 [facility] Comment on above: Performed By: #### L 500.4050, L100.0100 #### [facility] [address] [place], [address] MCV (RBC) [Entitic vol] 90.5 fL Normal 81-99 [facility] Comment on above: Performed By: #### L 500.4050, L100.0100 #### [facility] [address] [place], [address] Monocytes/100 WBC (Bld) 12.5 % High 0-10 [facility] Comment on above: Performed By: #### L 500.4050, L100.0100 #### [facility] [address] [place], [address] Neutrophils/100 WBC (Bld) 49.8 % Normal 47-70 [facility] Comment on above: Performed By: #### L 500.4050, L100.0100 #### [facility] [address] [place], [address] Nucleated RBC (Bld) [#/Vol] 0 10*3/uL Normal 0-5 [facility] Comment on above: Performed By: #### L 500.4050, L100.0100 #### [facility] [address] [place], [address] Platelet mean volume (Bld) [Entitic vol] 11.7 fL Normal 6.2-12.0 [facility] Comment on above: Performed By: #### L 500.4050, L100.0100 #### [facility] [address] [place], [address] Platelets (Bld) [#/Vol] 199 10*3/uL Normal 150-450 [facility] Comment on above: Performed By: #### L 500.4050, L100.0100 #### [facility] [address] [place], [address] RBC (Bld) [#/Vol] 4.11 10*6/uL Low 4.2-5.4 [facility] Comment on above: Performed By: #### L 500.4050, L100.0100 #### [facility] [address] [place], [address] RDW SD 42.9 fl Normal 35.1-43.9 [facility] Comment on above: Performed By: #### L 500.4050, L100.0100 #### [facility] [address] [place], [address] WBC (Bld) [#/Vol] 5.5 10*3/uL Normal 4.4-11.0 [facility] Comment on above: Performed By: #### L 500.4050, L100.0100 #### [facility] [address] [place], [address] [facility] 02-[facility]-2024 Albumin [Mass/Vol] 3.8 g/dL Normal 3.2-5.0 [facility] Comment on above: Performed By: #### L 500.4050, L100.0100 #### [facility] [address] [place], [address] Albumin/Globulin [Mass ratio] 1.2 {ratio} Normal 0.9-2.4 [facility] Comment on above: Performed By: #### L 500.4050, L100.0100 #### [facility] [address] [place], [address] ALK P 54 U/L Normal 45-117 [facility] Comment on above: Performed By: #### L 500.4050, L100.0100 #### [facility] [address] [place], [address] ALT [Catalytic activity/Vol] 30 U/L Normal 13-56 [facility] Comment on above: Performed By: #### L 500.4050, L100.0100 #### [facility] [address] [place], [address] AST [Catalytic activity/Vol] 34 U/L Normal 15-37 [facility] Comment on above: Performed By: #### L 500.4050, L100.0100 #### [facility] [address] [place], [address] Bilirubin [Mass/Vol] 0.40 mg/dL Normal 0.20-1.00 [facility] Comment on above: Result Comment: For patients on eltrombopag therapy, use of Dimension [place] TBIL is not recommended. Performed By: #### L 500.4050, L100.0100 #### [facility] [address] [place], [address] BUN/CRE 20.5 RATIO High 10-20 [facility] Comment on above: Performed By: #### L 500.4050, L100.0100 #### [facility] [address] [place], [address] CA,Total 9.0 mg/dL Normal 8.5-10.1 [facility] Comment on above: Performed By: #### L 500.4050, L100.0100 #### [facility] [address] [place], [address] Chloride [Moles/Vol] 105 mmol/L Normal 98-107 [facility] Comment on above: Performed By: #### L 500.4050, L100.0100 #### [facility] [address] [place], [address] CO2 [Moles/Vol] 29.0 mmol/L Normal 21.0-32.0 [facility] Comment on above: Performed By: #### L 500.4050, L100.0100 #### [facility] [address] [place], [address] Creatinine [Mass/Vol] 0.83 mg/dL Normal 0.55-1.02 [facility] Comment on above: Result Comment: The validity of the calculated GFR GFRAA in patients over 70 years has not been determined. Clinical correlation is essential. Performed By: #### L 500.4050, L100.0100 #### [facility] [address] [place], [address] EST GFR - AA 92 mL/min Normal >60 [facility] Comment on above: Result Comment: Afri can Bahamian GFR Calc Performed By: #### L 500.4050, L100.0100 #### [facility] [address] [place], [address] GAP 4 Low 5-15 [facility] Comment on above: Performed By: #### L 500.4050, L100.0100 #### [facility] [address] [place], [address] GFR/1.73 sq M.predicted among non-blacks MDRD (S/P/Bld) [Vol rate/Area] 76 mL/min/{1.73_m2} Normal >60 [facility] Comment on above: Result Comment: Non- GFR Calc Performed By: #### L 500.4050, L100.0100 #### [facility] [address] [place], [address] Globulin (S) [Mass/Vol] 3.1 g/dL Normal 2.2-4.2 [facility] Comment on above: Performed By: #### L 500.4050, L100.0100 #### [facility] [address] [place], [address] Glucose [Mass/Vol] 88 mg/dL Normal 74-106 [facility] Comment on above: Performed By: #### L 500.4050, L100.0100 #### [facility] [address] [place], [address] Potassium [Moles/Vol] 3.9 mmol/L Normal 3.5-5.1 [facility] Comment on above: Performed By: #### L 500.4050, L100.0100 #### [facility] [address] [place], [address] Sodium [Moles/Vol] 138 mmol/L Normal 136-145 [facility] Comment on above: Performed By: #### L 500.4050, L100.0100 #### [facility] [address] [place], [address] T PROT 6.9 g/dL Normal 6.4-8.2 [facility] Comment on above: Performed By: #### L 500.4050, L100.0100 #### [facility] [address] [place], [address] Urea nitrogen [Mass/Vol] 17 mg/dL Normal 7-18 [facility] Comment on above: Performed By: #### L 500.4050, L100.0100 #### [facility] [address] [place], [address] CBC W/Diff, Automatedon 09-0 5-2024 Absolute Lymph 2.07 X10 3/uL Normal 0.83-4.51 [facility] Comment on above: Performed By: #### L 100.0100, L500.4050 #### [facility] [address] [place], [address] Absolute Neut 3.0 X10 3/uL Normal 2.0-7.7 [facility] Comment on above: Performed By: #### L 100.0100, L500.4050 #### [facility] [address] [place], [address] Basophils/100 WBC (Bld) 1.0 % Normal 0-1 [facility] Comment on above: Performed By: #### L 100.0100, L500.4050 #### [facility] [address] [place], [address] Eosinophils/100 WBC (Bld) 3.1 % Normal 0-5 [facility] Comment on above: Performed By: #### L 100.0100, L500.4050 #### [facility] [address] [place], [address] Erythrocyte distribution width (RBC) [Ratio] 14.7 % High 11.6-14.6 [facility] Comment on above: Performed By: #### L 100.0100, L500.4050 #### [facility] [address] [place], [address] Hematocrit (Bld) [Volume fraction] 35.8 % Low 37-47 [facility] Comment on above: Performed By: #### L 100.0100, L500.4050 #### [facility] [address] [place], [address] Hemoglobin (Bld) [Mass/Vol] 11.4 g/dL Low 12.0-15.0 [facility] Comment on above: Performed By: #### L 100.0100, L500.4050 #### [facility] [address] [place], [address] IG% 0.200 Normal 0.0-0.9 [facility] Comment on above: Result Comment: IG% - Immature Granulocytes (promyelocytes, myelocytes and metamyelocytes) > 1% indicates that a LEFT SHIFT is Present. Performed By: #### L 100.0100, L500.4050 #### [facility] [address] [place], [address] Lymphocytes/100 WBC (Bld) 35.4 % Normal 19-41 [facility] Comment on above: Performed By: #### L 100.0100, L500.4050 #### [facility] [address] [place], [address] MCH (RBC) [Entitic mass] 29.1 pg Normal 27.0-32.0 [facility] Comment on above: Performed By: #### L 100.0100, L500.4050 #### [facility] [address] [place], [address] MCHC (RBC) [Mass/Vol] 31.8 g/dL Low 32-36 [facility] Comment on above: Performed By: #### L 100.0100, L500.4050 #### [facility] [address] [place], [address] MCV (RBC) [Entitic vol] 91.3 fL Normal 81-99 [facility] Comment on above: Performed By: #### L 100.0100, L500.4050 #### [facility] [address] [place], [address] Monocytes/100 WBC (Bld) 9.6 % Normal 0-10 [facility] Comment on above: Performed By: #### L 100.0100, L500.4050 #### [facility] [address] [place], [address] Neutrophils/100 WBC (Bld) 50.7 % Normal 47-70 [facility] Comment on above: Performed By: #### L 100.0100, L500.4050 #### [facility] [address] [place], [address] Nucleated RBC (Bld) [#/Vol] 0 10*3/uL Normal 0-5 [facility] Comment on above: Performed By: #### L 100.0100, L500.4050 #### [facility] [address] [place], [address] Platelet mean volume (Bld) [Entitic vol] 11.4 fL Normal 6.2-12.0 [facility] Comment on above: Performed By: #### L 100.0100, L500.4050 #### [facility] [address] [place], [address] Platelets (Bld) [#/Vol] 218 10*3/uL Normal 150-450 [facility] Comment on above: Performed By: #### L 100.0100, L500.4050 #### [facility] [address] [place], [address] RBC (Bld) [#/Vol] 3.92 10*6/uL Low 4.2-5.4 [facility] Comment on above: Performed By: #### L 100.0100, L500.4050 #### [facility] [address] [place], [address] RDW SD 49.1 fl High 35.1-43.9 [facility] Comment on above: Performed By: #### L 100.0100, L500.4050 #### [facility] [address] [place], [address] WBC (Bld) [#/Vol] 5.9 10*3/uL Normal 4.4-11.0 [facility] Comment on above: Performed By: #### L 100.0100, L500.4050 #### [facility] [address] [place], [address] Comprehensive Metabolic Prof ilon 11-06-2023 Albumin [Mass/Vol] 3.7 g/dL Normal 3.2-5.0 [facility] Comment on above: Performed By: #### L 100.0100, L500.4050 #### [facility] [address] [place], [address] Albumin/Globulin [Mass ratio] 1.1 {ratio} Normal 0.9-2.4 [facility] Comment on above: Performed By: #### L 100.0100, L500.4050 #### [facility] [address] [place], [address] ALK P 59 U/L Normal 45-117 [facility] Comment on above: Performed By: #### L 100.0100, L500.4050 #### [facility] [address] [place], [address] ALT [Catalytic activity/Vol] 36 U/L Normal 13-56 [facility] Comment on above: Performed By: #### L 100.0100, L500.4050 #### [facility] [address] [place], [address] AST [Catalytic activity/Vol] 41 U/L High 15-37 [facility] Comment on above: Performed By: #### L 100.0100, L500.4050 #### [facility] [address] [place], [address] Bilirubin [Mass/Vol] 0.20 mg/dL Normal 0.20-1.00 [facility] Comment on above: Result Comment: For patients on eltrombopag therapy, use of Dimension [place] TBIL is not recommended. Performed By: #### L 100.0100, L500.4050 #### [facility] [address] [place], [address] BUN/CRE 21.4 RATIO High 10-20 [facility] Comment on above: Performed By: #### L 100.0100, L500.4050 #### [facility] [address] [place], [address] CA,Total 8.7 mg/dL Normal 8.5-10.1 [facility] Comment on above: Performed By: #### L 100.0100, L500.4050 #### [facility] [address] [place], [address] Chloride [Moles/Vol] 108 mmol/L High 98-107 [facility] Comment on above: Performed By: #### L 100.0100, L500.4050 #### [facility] [address] [place], [address] CO2 [Moles/Vol] 28.0 mmol/L Normal 21.0-32.0 [facility] Comment on above: Performed By: #### L 100.0100, L500.4050 #### [facility] [address] [place], [address] Creatinine [Mass/Vol] 0.98 mg/dL Normal 0.55-1.02 [facility] Comment on above: Result Comment: The validity of the calculated GFR GFRAA in patients over 70 years has not been determined. Clinical correlation is essential. Performed By: #### L 100.0100, L500.4050 #### [facility] [address] [place], [address] EST GFR - AA 76 mL/min Normal >60 [facility] Comment on above: Result Comment: Afri can Bahamian GFR Calc Performed By: #### L 100.0100, L500.4050 #### [facility] [address] [place], [address] GAP 3 Low 5-15 [facility] Comment on above: Performed By: #### L 100.0100, L500.4050 #### [facility] [address] [place], [address] GFR/1.73 sq M.predicted among non-blacks MDRD (S/P/Bld) [Vol rate/Area] 63 mL/min/{1.73_m2} Normal >60 [facility] Comment on above: Result Comment: Non- GFR Calc Performed By: #### L 100.0100, L500.4050 #### [facility] [address] [place], [address] Globulin (S) [Mass/Vol] 3.4 g/dL Normal 2.2-4.2 [facility] Comment on above: Performed By: #### L 100.0100, L500.4050 #### [facility] [address] [place], [address] Glucose [Mass/Vol] 90 mg/dL Normal 74-106 [facility] Comment on above: Performed By: #### L 100.0100, L500.4050 #### [facility] [address] [place], [address] Potassium [Moles/Vol] 3.8 mmol/L Normal 3.5-5.1 [facility] Comment on above: Performed By: #### L 100.0100, L500.4050 #### [facility] [address] [place], [address] Sodium [Moles/Vol] 139 mmol/L Normal 136-145 [facility] Comment on above: Performed By: #### L 100.0100, L500.4050 #### [facility] [address] [place], [address] T PROT 7.1 g/dL Normal 6.4-8.2 [facility] Comment on above: Performed By: #### L 100.0100, L500.4050 #### [facility] [address] [place], [address] Urea nitrogen [Mass/Vol] 21 mg/dL High 7-18 [facility] Comment on above: Performed By: #### L 100.0100, L500.4050 #### [facility] [address] [place], [address] CBC + DIFFon 08-13-2023 Baso # 0.02 x10EE3/UL Normal 0.00 - 0.10 [facility] Comment on above: Performed By: #### 2 01749 #### [facility],[address] [place] [address] Basophils/100 WBC (Bld) 0.2 % Normal 0.0 - 2.0 [facility] Comment on above: Performed By: #### 2 83921 #### [facility],[address] [place] [address] CBC + DIFF Normal [facility] Comment on above: Result Comment: CBC- COMPLETE BLOOD COUNT Performed By: #### 2 98923 #### [facility],[address] [place] [address] EO # 0.10 x10EE3/UL Normal 0.00 - 0.50 [facility] Comment on above: Performed By: #### 2 95639 #### [facility],[address] [place] [address] Eosinophils/100 WBC (Bld) 1.3 % Normal 0.0 - 7.0 [facility] Comment on above: Performed By: #### 2 31419 #### [facility],[address] [place] [address] Erythrocyte distribution width (RBC) [Ratio] 13.9 % Normal 12.0 - 15.6 [facility] Comment on above: Performed By: #### 2 95408 #### [facility],[address] [place] [address] Hematocrit (Bld) [Volume fraction] 35.1 % Normal 34.0 - 46.0 [facility] Comment on above: Performed By: #### 2 72555 #### [facility],[address] [place] [address] Hemoglobin (Bld) [Mass/Vol] 11.6 g/dL Low 12.0 - 16.0 [facility] Comment on above: Performed By: #### 2 86986 #### [facility],[address] [place] [address] Lymph # 1.04 x10EE3/UL Normal 0.80 - 2.80 [facility] Comment on above: Performed By: #### 2 03871 #### [facility],[address] [place] [address] Lymphocytes/100 WBC (Bld) 13.8 % Low 20.0 - 45.0 [facility] Comment on above: Performed By: #### 2 79566 #### [facility],[address] [place] [address] MANUAL DIFF N/A Normal [facility] Comment on above: Performed By: #### 2 04172 #### [place] [address] MCH (RBC) [Entitic mass] 30 pg Normal 27 - 33 [facility] Comment on above: Performed By: #### 2 36371 #### [place] [address] MCHC 33 X10 3 Normal 32 - 36 [facility] Comment on above: Performed By: #### 2 32398 #### [facility],[address] [place] [address] MCV (RBC) [Entitic vol] 90 fL Normal 80 - 99 [facility] Comment on above: Performed By: #### 2 32560 #### [place] [address] [place]ath # 0.53 x10EE3/UL Normal 0.20 - 1.00 [facility] Comment on above: Performed By: #### 2 26757 #### [place] [address] MONOS % 7.0 % Normal 0.0 - 10.0 [facility] Comment on above: Performed By: #### 2 12424 #### [facility],[address] [place] [address] Morphology Govind (Bld) [Interp] N/A Normal [facility] Comment on above: Performed By: #### 2 46283 #### [facility],[address] [place] [address] Neut # 5.87 x10EE3/UL Normal 1.50 - 7.10 [facility] Comment on above: Performed By: #### 2 91335 #### [place] [address] Neutrophils/100 WBC (Bld) 77.7 % High 46.0 - 76.0 [facility] Comment on above: Performed By: #### 2 50005 #### [facility],[address] [place] [address] PLATELET 201 x10EE3/UL Normal 150 - 450 [facility] Comment on above: Performed By: #### 2 41720 #### [facility],[address] [place] [address] Platelet mean volume (Bld) [Entitic vol] 9.1 fL Normal 6.6 - 10.5 [facility] Comment on above: Result Comment: AUTO MATED DIFFERENTIAL Performed By: #### 2 31103 #### [facility],[address] [place] [address] RBC 3.90 x 10EE6/UL Low 4.10 - 5.30 [facility] Comment on above: Performed By: #### 2 33780 #### [place] [id number] WBC 7.6 x 10EE3/UL Normal 4.5 - 10.8 [facility] Comment on above: Performed By: #### 2 03597 #### [facility],[address] [place] [address] CMP with eGFRon 08-13-2023 AGE 52 years Normal [facility] Comment on above: Performed By: #### 2 07914 #### [facility],[address] [place] [address] Albumin [Mass/Vol] 3.9 g/dL Normal 3.4 - 5.0 [facility] Comment on above: Performed By: #### 2 36009 #### [facility],[address] [place], [place] [phone] Albumin/Globulin [Mass ratio] 1.2 {ratio} Normal 0.9 - 1.6 [facility] Comment on above: Performed By: #### 2 36930 #### [facility],[address] [place] [address] ALK PHOS 46 U/L Normal 46 - 116 [facility] Comment on above: Performed By: #### 2 66717 #### [facility],[address] [place] [address] ALT [Catalytic activity/Vol] 26 U/L Normal 16 - 63 [facility] Comment on above: Performed By: #### 2 67124 #### [facility],[address] [place] [address] Anion gap [Moles/Vol] 14 mmol/L Normal 10 - 20 [facility] Comment on above: Performed By: #### 2 61801 #### [facility],[address] [place] [address] AST [Catalytic activity/Vol] 35 U/L Normal 13 - 39 [facility] Comment on above: Performed By: #### 2 31171 #### [address] [address] B/C RATIO 15 ratio Normal 0 - 30 [facility] Comment on above: Performed By: #### 2 06662 #### [facility],[address] [place] [address] Bilirubin [Mass/Vol] 0.4 mg/dL Normal 0.2 - 1.0 [facility] Comment on above: Performed By: #### 2 75567 #### [facility],[address] [place], [place] [phone] Calcium [Mass/Vol] 8.8 mg/dL Normal 8.5 - 10.1 [facility] Comment on above: Performed By: #### 2 25261 #### [facility],[address] [place] [address] Chloride [Moles/Vol] 101 mmol/L Normal 98 - 107 [facility] Comment on above: Performed By: #### 2 32224 #### [facility],[address] [place] [address] CMP with eGFR Normal [facility] Comment on above: Result Comment: COMP REHENSIVE METABOLIC PANEL Performed By: #### 2 82628 #### [facility],[address] [place], [place] [phone] CO2 [Moles/Vol] 26.3 mmol/L Normal 21.0 - 32.0 [facility] Comment on above: Performed By: #### 2 51564 #### [facility],[address] [place], [place] [phone] Creatinine [Mass/Vol] 0.97 mg/dL Normal 0.55 - 1.02 [facility] Comment on above: Performed By: #### 2 84921 #### [facility],[address] [place] [address] eGFR 60 ML/MINUTE Normal 60 - 999 [facility] Comment on above: Performed By: #### 2 47300 #### [facility],[address] [place] [address] GFR/1.73 sq M.predicted among non-blacks MDRD (S/P/Bld) [Vol rate/Area] mL/min/{1.73_m2} Normal 60 - 999 [facility] Comment on above: Result Comment: ACCO RDING TO THE NATIONAL KIDNEY DISEASE EDUCATION PROGRAM(NKDE), A NORMAL eGFR IS A VALUE GREATER THAN OR EQUAL TO 60 ML/MIN/1.73 SQ METERS. CHRONIC KIDNEY DISEASE: <60mL/MIN/1.73 SQ METERS KIDNEY FAILURE: <15mL/MIN/1.73 SQ METERS THIS TEST SHOULD ONLY BE USED FOR PATIENTS 18 YEARS OF AGE AND OLDER. Performed By: #### 2 92884 #### [facility],[address] [place] [address] Globulin (S) [Mass/Vol] 3.2 g/dL Normal 1.5 - 3.8 [facility] Comment on above: Performed By: #### 2 00160 #### [address] [address] Glucose [Mass/Vol] 105 mg/dL Normal 74 - 106 [facility] Comment on above: Performed By: #### 2 23240 #### [facility],[address] [place] [address] Potassium [Moles/Vol] 4.2 mmol/L Normal 3.5 - 5.1 [facility] Comment on above: Performed By: #### 2 12150 #### [facility],[address] [place] [address] Protein [Mass/Vol] 7.1 g/dL Normal 6.4 - 8.2 [facility] Comment on above: Performed By: #### 2 06188 #### [facility],[address] [place] [address] Sodium [Moles/Vol] 137 mmol/L Normal 136 - 145 [facility] Comment on above: Performed By: #### 2 27486 #### [facility],[address] [place] [address] Urea nitrogen [Mass/Vol] 15 mg/dL Normal 7 - 18 [facility] Comment on above: Performed By: #### 2 17335 #### [facility],[address] [place] [address] CBC + DIFFon 06-03-2023 Baso # 0.01 x10EE3/UL Normal 0.00 - 0.10 [facility] Comment on above: Performed By: #### 2 82512 #### [facility],[address] [place] [address] Basophils/100 WBC (Bld) 0.2 % Normal 0.0 - 2.0 [facility] Comment on above: Performed By: #### 2 61562 #### [facility],[address] [place] [address] CBC + DIFF Normal [facility] Comment on above: Result Comment: CBC- COMPLETE BLOOD COUNT Performed By: #### 2 96210 #### [facility],[address] [place] [address] EO # 0.08 x10EE3/UL Normal 0.00 - 0.50 [facility] Comment on above: Performed By: #### 2 48531 #### [facility],[address] [place] [address]60 Eosinophils/100 WBC (Bld) 1.2 % Normal 0.0 - 7.0 [facility] Comment on above: Performed By: #### 2 91041 #### [facility],[address] [place] [address] 20665 Erythrocyte distribution width (RBC) [Ratio] 14.5 % Normal 12.0 - 15.6 [facility] Comment on above: Performed By: #### 2 02101 #### [facility],[address] [place] [address]73 Hematocrit (Bld) [Volume fraction] 35.8 % Normal 34.0 - 46.0 [facility] Comment on above: Performed By: #### 2 57546 #### [facility],[address] [place] [address]883 Hemoglobin (Bld) [Mass/Vol] 11.7 g/dL Low 12.0 - 16.0 [facility] Comment on above: Performed By: #### 2 42197 #### [facility],[address] [place] [address] Lymph # 1.79 x10EE3/UL Normal 0.80 - 2.80 [facility] Comment on above: Performed By: #### 2 64375 #### [facility],[address] [place] [address] Lymphocytes/100 WBC (Bld) 25.4 % Normal 20.0 - 45.0 [facility] Comment on above: Performed By: #### 2 88003 #### [facility],[address] [place] [address] MANUAL DIFF N/A Normal [facility] Comment on above: Performed By: #### 2 01273 #### [facility],[address] [place] [address] MCH (RBC) [Entitic mass] 28 pg Normal 27 - 33 [facility] Comment on above: Performed By: #### 2 42799 #### [facility],[address] [place] [address] MCHC 33 X10 3 Normal 32 - 36 [facility] Comment on above: Performed By: #### 2 31468 #### [facility],[address] [place] [address] MCV (RBC) [Entitic vol] 86 fL Normal 80 - 99 [facility] Comment on above: Performed By: #### 2 10181 #### [facility],[address] [place] [address] Erath # 0.64 x10EE3/UL Normal 0.20 - 1.00 [facility] Comment on above: Performed By: #### 2 50789 #### [facility],[address] [place], [place] [phone] MONOS % 9.1 % Normal 0.0 - 10.0 [facility] Comment on above: Performed By: #### 2 28050 #### [facility],[address] [place], [place] [phone] Morphology Govind (Bld) [Interp] N/A Normal [facility] Comment on above: Performed By: #### 2 81366 #### [facility],[address] [place] [address] Neut # 4.51 x10EE3/UL Normal 1.50 - 7.10 [facility] Comment on above: Performed By: #### 2 00769 #### [place] [address] Neutrophils/100 WBC (Bld) 64.1 % Normal 46.0 - 76.0 [facility] Comment on above: Performed By: #### 2 17848 #### [place] [address] PLATELET 200 x10EE3/UL Normal 150 - 450 [facility] Comment on above: Performed By: #### 2 32218 #### [place] [address] Platelet mean volume (Bld) [Entitic vol] 9.5 fL Normal 6.6 - 10.5 [facility] Comment on above: Result Comment: AUTO MATED DIFFERENTIAL Performed By: #### 2 89608 #### [facility],[address] [place], [place] [id number] RBC 4.14 x 10EE6/UL Normal 4.10 - 5.30 [facility] Comment on above: Performed By: #### 2 48971 #### [place] [address] WBC 7.0 x 10EE3/UL Normal 4.5 - 10.8 [facility] Comment on above: Performed By: #### 2 41195 #### [place] [address] CMP with eGFRon 06-03-2023 AGE 52 years Normal [facility] Comment on above: Performed By: #### 2 14593 #### [facility],[address] [place] [address] Albumin [Mass/Vol] 3.4 g/dL Normal 3.4 - 5.0 [facility] Comment on above: Performed By: #### 2 06721 #### [facility],[address] [place] [address] Albumin/Globulin [Mass ratio] 1.1 {ratio} Normal 0.9 - 1.6 [facility] Comment on above: Performed By: #### 2 07158 #### [facility],[address] [place] [address]37 ALK PHOS 45 U/L Low 46 - 116 [facility] Comment on above: Performed By: #### 2 11825 #### [facility],[address] [place], [place] [phone] ALT [Catalytic activity/Vol] 25 U/L Normal 16 - 63 [facility] Comment on above: Performed By: #### 2 12356 #### [facility],[address] [place], [place] [phone] Anion gap [Moles/Vol] 11 mmol/L Normal 10 - 20 [facility] Comment on above: Performed By: #### 2 80721 #### [facility],[address] [place] [address] AST [Catalytic activity/Vol] 30 U/L Normal 13 - 39 [facility] Comment on above: Performed By: #### 2 40156 #### [facility],[address] [place] [address] B/C RATIO 19 ratio Normal 0 - 30 [facility] Comment on above: Performed By: #### 2 02370 #### [facility],[address] [place] [address]19 Bilirubin [Mass/Vol] 0.3 mg/dL Normal 0.2 - 1.0 [facility] Comment on above: Performed By: #### 2 52860 #### [facility],[address] [place], [place] [phone] Calcium [Mass/Vol] 8.1 mg/dL Low 8.5 - 10.1 [facility] Comment on above: Performed By: #### 2 70975 #### [facility],[address] [place] [address] Chloride [Moles/Vol] 105 mmol/L Normal 98 - 107 [facility] Comment on above: Performed By: #### 2 34631 #### [facility],[address] [place] [address] CMP with eGFR Normal [facility] Comment on above: Result Comment: COMP REHENSIVE METABOLIC PANEL Performed By: #### 2 02283 #### [facility],[address] [place], [place] [phone] CO2 [Moles/Vol] 28.9 mmol/L Normal 21.0 - 32.0 [facility] Comment on above: Performed By: #### 2 26049 #### [facility],[address] [place], [place] [phone] Creatinine [Mass/Vol] 0.80 mg/dL Normal 0.55 - 1.02 [facility] Comment on above: Performed By: #### 2 20228 #### [facility],[address] [place], [place] [phone] GFR/1.73 sq M.predicted among non-blacks MDRD (S/P/Bld) [Vol rate/Area] mL/min/{1.73_m2} Normal 60 - 999 [facility] Comment on above: Performed By: #### 2 57251 #### [facility],[address] [place] [address] Result Comment: ACCO RDING TO THE NATIONAL KIDNEY DISEASE EDUCATION PROGRAM(NKDE), A NORMAL eGFR IS A VALUE GREATER THAN OR EQUAL TO 60 ML/MIN/1.73 SQ METERS. CHRONIC KIDNEY DISEASE: <60mL/MIN/1.73 SQ METERS KIDNEY FAILURE: <15mL/MIN/1.73 SQ METERS THIS TEST SHOULD ONLY BE USED FOR PATIENTS 18 YEARS OF AGE AND OLDER. Globulin (S) [Mass/Vol] 3.2 g/dL Normal 1.5 - 3.8 [facility] Comment on above: Performed By: #### 2 37400 #### [facility],[address] [place] [address] Glucose [Mass/Vol] 76 mg/dL Normal 74 - 106 [facility] Comment on above: Performed By: #### 2 80801 #### [facility],[address] [place] [address] Potassium [Moles/Vol] 3.5 mmol/L Normal 3.5 - 5.1 [facility] Comment on above: Performed By: #### 2 02637 #### [facility],[address] [place] [address]6071 Protein [Mass/Vol] 6.6 g/dL Normal 6.4 - 8.2 [facility] Comment on above: Performed By: #### 2 36686 #### [facility],[address] [place] [address]2494 Sodium [Moles/Vol] 141 mmol/L Normal 136 - 145 [facility] Comment on above: Performed By: #### 2 82388 #### [facility],[address] [place] [address] 23050 Urea nitrogen [Mass/Vol] 15 mg/dL Normal 7 - 18 [facility] Comment on above: Performed By: #### 2 75454 #### [facility],[address] [place] [address] [place] [facility] 05-12-2023 [facility] HNO ID: [id number] Author: COORDINATOR, MAMMOGRAPHY, ? Service: ? Author Type: Physician Type: Letter Filed: 05/12/2023 09:47 Note Text: May 12, 2023 PID: [id number] Rose Ryan [address] [place] [address] Dear Ms. Ryan, We are pleased to [...] report will be kept on file at [facility] as part of your permanent medical record and are available for your continuing care. Thank you for allowing us to help in meeting your health care needs. Sincerely, Dr. Ballard Interpreting Radiologist (Normal over 40) Normal [facility] DBT Breast - bilateral scree ningon 05-12-2023 [facility] SCREENING W TOMOon 05-11 [facility] SCREENING W SANGITA * * *Final Report* * * DATE OF EXAM: May 12 2023 8:00AM WRW 0582 - HAY SCREENING W SANGITA / PROCEDURE REASON: multiple diagnoses * * * * Physician Interpretation * * * * RESULT: #[id number] - [facility] SCREENING W SANGITA BILATERAL DIGITAL SCREENING MAMMOGRAM [...] is recommended. Dinora Ballard M.D., cp/yarelis:05/12/2023 09:47:54 Psych Social Worker(s): Marielle Nicole, letter sent: Normal over 40 Mammogram BI-RADS: [...] Health, Family Medicine, and Medical/Surgical Oncology, the [facility] has carefully reviewed the data and reached [...] their providers when to stop screening mammograms. [place] Machine Operator: Yarelis Transcribe Date/Time: May 12 2023 7:36A Dictated by: DINORA BALLARD MD This examination was interpreted and the report reviewed and electronically signed by: DINORA BALLARD MD on May 12 2023 9:47AM EST [id number] Normal [facility] CBC + DIFFon 02-04-2023 Baso # 0.10 x10EE3/UL Normal 0.00 - 0.10 [facility] Comment on above: Performed By: #### 2 21456 #### [facility],[address] [place] [address] Basophils/100 WBC (Bld) 1.2 % Normal 0.0 - 2.0 [facility] Comment on above: Performed By: #### 2 08944 #### [facility],[address] [place] [address]243 CBC + DIFF Normal [facility] Comment on above: Result Comment: CBC- COMPLETE BLOOD COUNT Performed By: #### 2 23499 #### [facility],[address] [place] [address]507 EO # 0.10 x10EE3/UL Normal 0.00 - 0.50 [facility] Comment on above: Performed By: #### 2 31437 #### [facility],[address] [place], [place] [address] Eosinophils/100 WBC (Bld) 2.6 % Normal 0.0 - 7.0 [facility] Comment on above: Performed By: #### 2 26178 #### [facility],[address] [place] [address] Erythrocyte distribution width (RBC) [Ratio] 14.0 % Normal 12.0 - 15.6 [facility] Comment on above: Performed By: #### 2 03468 #### [facility],[address] [place] [address] Hematocrit (Bld) [Volume fraction] 35.2 % Normal 34.0 - 46.0 [facility] Comment on above: Performed By: #### 2 95627 #### [facility],[address] [place], [place] [address] Hemoglobin (Bld) [Mass/Vol] 11.5 g/dL Low 12.0 - 16.0 [facility] Comment on above: Performed By: #### 2 05571 #### [facility],[address] [place] [address] 42659 Lymph # 1.70 x10EE3/UL Normal 0.80 - 2.80 [facility] Comment on above: Performed By: #### 2 06394 #### [facility],[address] [place], [place] [address] Lymphocytes/100 WBC (Bld) 36.7 % Normal 20.0 - 45.0 [facility] Comment on above: Performed By: #### 2 45041 #### [facility],[address] [place] [address] MANUAL DIFF N/A Normal [facility] Comment on above: Performed By: #### 2 82081 #### [facility],[address] [place] [address] MCH (RBC) [Entitic mass] 29 pg Normal 27 - 33 [facility] Comment on above: Performed By: #### 2 72462 #### [facility],[address] [place] [address] MCHC 33 X10 3 Normal 32 - 36 [facility] Comment on above: Performed By: #### 2 14829 #### [place] [address] MCV (RBC) [Entitic vol] 89 fL Normal 80 - 99 [facility] Comment on above: Performed By: #### 2 36032 #### [place] [address] Erath # 0.50 x10EE3/UL Normal 0.20 - 1.00 [facility] Comment on above: Performed By: #### 2 19870 #### [facility],[address] [place] [address] MONOS % 10.3 % High 0.0 - 10.0 [facility] Comment on above: Performed By: #### 2 67358 #### [place] [phone] Morphology Govind (Bld) [Interp] N/A Normal [facility] Comment on above: Result Comment: {CD] Performed By: #### 2 66120 #### [place] [address] Neut # 2.30 x10EE3/UL Normal 1.50 - 7.10 [facility] Comment on above: Performed By: #### 2 27471 #### [facility],[address] [place], [place] [address] Neutrophils/100 WBC (Bld) 49.2 % Normal 46.0 - 76.0 [facility] Comment on above: Performed By: #### 2 99516 #### [facility],[address] [place] [address] PLATELET 225 x10EE3/UL Normal 150 - 450 [facility] Comment on above: Performed By: #### 2 60575 #### [place] [address] Platelet mean volume (Bld) [Entitic vol] 9.5 fL Normal 6.6 - 10.5 [facility] Comment on above: Result Comment: AUTO MATED DIFFERENTIAL Performed By: #### 2 93535 #### [place] [address] RBC 3.97 x 10EE6/UL Low 4.10 - 5.30 [facility] Comment on above: Performed By: #### 2 40036 #### [place] [address] WBC 4.7 x 10EE3/UL Normal 4.5 - 10.8 [facility] Comment on above: Performed By: #### 2 30362 #### [facility],[address] [place], [place] [phone] CMP with eGFRon 02-04-2023 AGE 52 years Normal [facility] Comment on above: Performed By: #### 2 00546 #### [place] [id number] Albumin [Mass/Vol] 3.5 g/dL Normal 3.4 - 5.0 [facility] Comment on above: Performed By: #### 2 20723 #### [place] [phone] Albumin/Globulin [Mass ratio] 0.9 {ratio} Normal 0.9 - 1.6 [facility] Comment on above: Performed By: #### 2 80290 #### [facility],[address] [place] [address]20 ALK PHOS 52 U/L Normal 46 - 116 [facility] Comment on above: Performed By: #### 2 34043 #### [facility],[address] [place], [place] [address] ALT [Catalytic activity/Vol] 27 U/L Normal 14 - 59 [facility] Comment on above: Performed By: #### 2 32823 #### [facility],[address] [place] [address] Anion gap [Moles/Vol] 11 mmol/L Normal 10 - 20 [facility] Comment on above: Performed By: #### 2 57484 #### [facility],[address] [place], [place] [address] AST [Catalytic activity/Vol] 32 U/L Normal 13 - 39 [facility] Comment on above: Performed By: #### 2 82074 #### [facility],[address] [place], [place] [address] B/C RATIO 15 ratio Normal 0 - 30 [facility] Comment on above: Performed By: #### 2 40188 #### [facility],[address] [place] [address] 03528 Bilirubin [Mass/Vol] 0.2 mg/dL Normal 0.2 - 1.0 [facility] Comment on above: Performed By: #### 2 77591 #### [facility],[address] [place] [address] 97091 Calcium [Mass/Vol] 8.5 mg/dL Normal 8.5 - 10.1 [facility] Comment on above: Performed By: #### 2 39249 #### [facility],[address] [place] [address] Chloride [Moles/Vol] 104 mmol/L Normal 98 - 107 [facility] Comment on above: Performed By: #### 2 36832 #### [facility],[address] [place], [place] [address] CMP with eGFR Normal [facility] Comment on above: Result Comment: COMP REHENSIVE METABOLIC PANEL Performed By: #### 2 74567 #### [facility],[address] [place] [address] CO2 [Moles/Vol] 29.5 mmol/L Normal 21.0 - 32.0 [facility] Comment on above: Performed By: #### 2 95335 #### [facility],[address] [place] [address] Creatinine [Mass/Vol] 0.80 mg/dL Normal 0.55 - 1.02 [facility] Comment on above: Performed By: #### 2 91667 #### [facility],[address] [place] [address] GFR/1.73 sq M.predicted among non-blacks MDRD (S/P/Bld) [Vol rate/Area] mL/min/{1.73_m2} Normal 60 - 999 [facility] Comment on above: Performed By: #### 2 58728 #### [facility],[address] [place] [address] Result Comment: ACCO RDING TO THE NATIONAL KIDNEY DISEASE EDUCATION PROGRAM(NKDE), A NORMAL eGFR IS A VALUE GREATER THAN OR EQUAL TO 60 ML/MIN/1.73 SQ METERS. CHRONIC KIDNEY DISEASE: <60mL/MIN/1.73 SQ METERS KIDNEY FAILURE: <15mL/MIN/1.73 SQ METERS THIS TEST SHOULD ONLY BE USED FOR PATIENTS 18 YEARS OF AGE AND OLDER. Globulin (S) [Mass/Vol] 3.7 g/dL Normal 1.5 - 3.8 [facility] Comment on above: Performed By: #### 2 54462 #### [facility],[address] [place] [address] 17675 Glucose [Mass/Vol] 86 mg/dL Normal 74 - 106 [facility] Comment on above: Performed By: #### 2 97640 #### [facility],[address] [place] [address] 05294 Potassium [Moles/Vol] 4.0 mmol/L Normal 3.5 - 5.1 [facility] Comment on above: Performed By: #### 2 23038 #### [facility],[address] [place] [address] 35505 Protein [Mass/Vol] 7.2 g/dL Normal 6.4 - 8.2 [facility] Comment on above: Performed By: #### 2 19121 #### [facility],[address] [place] [address] 57510 Sodium [Moles/Vol] 140 mmol/L Normal 136 - 145 [facility] Comment on above: Performed By: #### 2 44405 #### [facility],[address] [place], [place] [address] Urea nitrogen [Mass/Vol] 12 mg/dL Normal [facility] Comment on above: Performed By: #### 2 66165 #### [facility],[address] [place] [address] 02995 FSH [CCL]on 12-18-2022 FSH 7.4 mIU/mL Normal See comment [facility] Comment on above: Result Comment: Refe rence range: Follicular: 3.5-12.5 mIU/mL Ovulation: 4.7-21.5 mIU/mL Luteal: 1.7-7.7 mIU/mL Postmenopausal: 25.8-134.8 mIU/mL Performed By: #### 2 06987 #### [facility],[address] [place] [address] 65037 SEX HORMONE BIND GLB [CCL]on 12-18-2022 Sex Hormone Bind Glb 88 nmol/L Normal 17-125 [facility] Comment on above: Performed By: #### 2 98346 #### [facility],[address] [place] [address] 74964 TESTOSTERONE, TOTAL & FREE, SERUM [CCL]on 12-18-2022 Testosterone, Free, S 4.56 ng/dL High <0.13-0.92 [facility] Comment on above: Result Comment: ---- ADDITIONAL INFORMATION This test was developed and its performance characteristics determined by [facility] in a manner consistent with CLIA requirements. This test has not been cleared or approved by the U.S. Food and Drug Administration. Performed By: #### 2 37031 #### [facility],[address] [place] [address] 41256 Testosterone, Total, S 282 ng/dL High 8-60 [facility] Comment on above: Result Comment: ---- ADDITIONAL INFORMATION Testing performed by Liquid Chromatography-Tandem Mass Spectrometry (LC-MS/MS). This test was developed and its performance characteristics determined by [facility] in a manner consistent with CLIA requirements. This test has not been cleared or approved by the U.S. Food and Drug Administration. Test Performed by: [place] [address] Property Management Bookkeeper: Carlos Manuel Case M.D. Ph.D.; CLIA# [id number] Performed By: #### 2 79840 #### [facility],[address] [place] [address]277 DHEA-S [CCL]on 12-11-2022 DHEA-S 48.2 ug/dL Normal 35.4-256.0 [facility] Comment on above: Result Comment: Refe rence ranges are age and gender specific. For additional information, reference range tables can be found in the laboratory test directory. The normal values are based on the following source: Dehydroepiandrosterone sulfate (DHEA S) [package insert V 17.0 Argentine]. [employer], [place], [place]: October 2012. [address] [address] Uli Godfrey III, M.D. [id number] Performed By: #### 2 20192 #### [address] [address] ESTRADIOL-17B [CCL]on 2022 Estradiol-17B 28 pg/mL Normal [facility] Comment on above: Result Comment: This [...] 3243 pg/mL Second trimester : 1561 to 25837 pg/mL Third trimester : 8285 to >44440 pg/mL Post-menopausal Estradiol reference range: < 41 pg/mL Reference: 1. Estradiol - E2 (Estradiol III) [package insert V 3.0 Argentine]. [employer], [place], [place], August 2015. [address] [address] Uli Godfrey III, M.D. [id number] Performed By: #### 2 23158 #### [address] [address] DHEA-S [facility] 12-10-2022 DHEA-S [Mass/Vol] 48.2 ug/dL Normal 35.4-256.0 [facility] Comment on above: Order Comment: Speci men Type: BLOOD SPECIMEN Ordering Facility: [facility] Address: [address] [place] [address] Result Comment: Refe rence ranges are age and gender specific. For additional information, reference range tables can be found in the laboratory test directory. The normal values are based on the following source: Dehydroepiandrosterone sulfate (DHEA S) [package insert V 17.0 Argentine]. [employer] [place], [place]: October 2012. Performed By: #### Lavelle ESCAMILLA, 2243-4 #### [facility] CLIA [id number] [address] [place] [address] [place] Estradiol SerPl-mCncon 12-10 E2 [Mass/Vol] 28 pg/mL Normal [facility] Comment on above: Order Comment: Speci men Type: BLOOD SPECIMENOrdering Facility: [facility] Address: [address] [place] [address] Result Comment: This test is not suitable [...] 3243 pg/mL Second trimester : 1561 to 05747 pg/mL Third trimester : 8285 to >50081 pg/mL Post-menopausal Estradiol reference range: < 41 pg/mL Reference: 1. Estradiol - E2 (Estradiol III) [package insert V 3.0 Argentine]. [employer], [place], [place], August 2015. Performed By: #### Lavelle ESCAMILLA, 4 ####[facility] [id number] [place] [address] [place] FSH SerPl-aCncon 12-10-2022 Follitropin Qn 7.4 m[IU]/mL Normal See comment [facility] Comment on above: Order Comment: Speci men Type: BLOOD SPECIMEN Ordering Facility: [facility] Address: [address] [place] [address] Result Comment: Refe rence range: Follicular: 3.5-12.5 mIU/mL Ovulation: 4.7-21.5 mIU/mL Luteal: 1.7-7.7 mIU/mL Postmenopausal: 25.8-134.8 mIU/mL Performed By: #### T FTEST #### [facility] CLIA [id number] [address] [place] [address] #### 18114-0, 09454-5 #### [facility] CLIA [id number] [address] [place] [address] [place] SHBG SerPl-sCncon 12-10-2022 Sex hormone binding globulin [Moles/Vol] 88 nmol/L Normal 17-125 [facility] Comment on above: Order Comment: Speci men Type: BLOOD SPECIMEN Ordering Facility: [facility] Address: [facility] [place] [address] Performed By: #### T FTEST #### [facility] CLIA [id number] [address] [place] [address] #### 93028-8, 54389-5 #### [facility] CLIA [id number] [address] [place] [address] [place] TESTOSTERONE, FREE AND TOTAL on 12-10-2022 TESTOSTERONE, FREE, S 4.56 ng/dL High <0.13-0.92 [facility] Comment on above: Order Comment: Speci men Type: BLOOD SPECIMEN Ordering Facility: [facility] Address: [facility] [place] [address] Result Comment: ADDITIONAL INFORMATION This test was developed and its performance characteristics determined by [facility] in a manner consistent with CLIA requirements. This test has not been cleared or approved by the U.S. Food and Drug Administration. Performed By: #### T FTEST #### [facility] CLIA [id number] [address] [place] [address] #### 97378-4, 59406-0 #### [facility] CLIA [id number] [address] [place] [address] [place] TESTOSTERONE, TOTAL, S 282 ng/dL High 8-60 [facility] Comment on above: Order Comment: Speci men Type: BLOOD SPECIMEN Ordering Facility: [facility] Address: [address] [place] [address] Result Comment: ADDITIONAL INFORMATION Testing performed by Liquid Chromatography-Tandem Mass Spectrometry (LC-MS/MS). This test was developed and its performance characteristics determined by [facility] in a manner consistent with CLIA requirements. This test has not been cleared or approved by the U.S. Food and Drug Administration. Test Performed by: [facility] [address] [place] [address] Property Management Bookkeeper: Carlos Manuel Case M.D. Ph.D.; CLIA# [id number] Performed By: #### T FTEST #### [facility] CLIA [id number] [address] [place] [address] #### 90464-8, 80233-0 #### [facility] CLIA [id number] [address] [place] [address] [place] CBC + DIFFon 11-12-2022 Baso # 0.00 x10EE3/UL Normal 0.00 - 0.10 [facility] Comment on above: Performed By: #### 2 62237 #### [place] [address] Basophils/100 WBC (Bld) 0.8 % Normal 0.0 - 2.0 [facility] Comment on above: Performed By: #### 2 07245 #### [facility],[address] [place] [address] CBC + DIFF Normal [facility] Comment on above: Result Comment: CBC- COMPLETE BLOOD COUNT Performed By: #### 2 80382 #### [facility],[address] [place] [address] EO # 0.20 x10EE3/UL Normal 0.00 - 0.50 [facility] Comment on above: Performed By: #### 2 98271 #### [address],[place] [address] Eosinophils/100 WBC (Bld) 3.3 % Normal 0.0 - 7.0 [facility] Comment on above: Performed By: #### 2 35529 #### [facility],[address] [place] [address] Erythrocyte distribution width (RBC) [Ratio] 13.7 % Normal 12.0 - 15.6 [facility] Comment on above: Performed By: #### 2 32028 #### [facility],[address] [place] [address] Hematocrit (Bld) [Volume fraction] 34.8 % Normal 34.0 - 46.0 [facility] Comment on above: Performed By: #### 2 18279 #### [facility],[address] [place] [address] Hemoglobin (Bld) [Mass/Vol] 11.5 g/dL Low 12.0 - 16.0 [facility] Comment on above: Performed By: #### 2 83566 #### [facility],[address] [place] [address] Lymph # 2.20 x10EE3/UL Normal 0.80 - 2.80 [facility] Comment on above: Performed By: #### 2 05685 #### [place] [id number] Lymphocytes/100 WBC (Bld) 36.0 % Normal 20.0 - 45.0 [facility] Comment on above: Performed By: #### 2 93412 #### [facility],[address] [place] [address] MANUAL DIFF N/A Normal [facility] Comment on above: Performed By: #### 2 28507 #### [facility],[address] [place] [address] 12570 MCH (RBC) [Entitic mass] 30 pg Normal 27 - 33 [facility] Comment on above: Performed By: #### 2 56811 #### [facility],[address] [place] [address]106 MCHC 33 X10 3 Normal 32 - 36 [facility]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
[2024-11-18 10:09] LABS: Hematocrit 37.7 % (37-47); Hemoglobin 12.6 g/dL (12.0-15.0); Immature Granulocytes Count 0.000 X10^3/uL (0.0-0.0); Mean Corp Hgb Conc 33.4 g/dL (32-36); Mean Corpuscular Volume 89.1 fL (81-99); Mean Platelet Vol. 11.2 fl (6.2-12.0); NRBC Flagged by Analyzer 0 % (0-5); Platelet Count 205 K/mm3 (150-450); RBC Distribution Width CV 13.1 % (11.6-14.6); RBC Distribution Width SD 43.2 fl (35.1-43.9); Red Blood Count 4.23 M/mm3 (4.2-5.4); White Blood Count 3.8 K/mm3 (4.4-11.0)
[2024-11-18 10:41] LABS: AST(SGOT) 50 U/L (<=31); Alanine Aminotransfer ALT/SGPT 33 U/L (<=34); Albumin, Serum 4.3 g/dL (3.5-5.0); Alkaline Phosphatase 59 U/L (35-104); Anion Gap 10 (5-15); BUN 16 mg/dL (4-19); BUN/Creat Ratio 18.3 RATIO (10-20); Calcium,Total 8.7 mg/dL (7.6-11.0); Carbon Dioxide 25.9 mmol/L (21.0-32.0); Chloride 103 mmol/L (98-108); Globulin 2.6 g/dL (2.2-4.2); Glucose 85 mg/dL (70-99); Potassium 4.2 mmol/L (3.3-5.1)
== END | disposition home or self-care (01) ==
LOC: MTLAB 07:31
PROVIDERS: PCP Nurse Practitioner Family; Referring Provider Internal Medicine Rheumatology; Visit Provider Internal Medicine Rheumatology
DX: M05.79 Rheumatoid arthritis with rheumatoid factor of multiple sites without organ or systems involvement (principal); Z79.899 Other long term (current) drug therapy
CPT/HCPCS: 36415; 80053; 85025

== ENCOUNTER → 2025-02-21 | Outpatient (CLI) | payer BC, SELFPAY ==
[2025-02-21 15:21] LABS: Hematocrit 36.9 % (37-47); Hemoglobin 12.0 g/dL (12.0-15.0); Immature Granulocytes Count 0.020 X10^3/uL (0.0-0.0); Mean Corp Hgb Conc 32.5 g/dL (32-36); Mean Corpuscular Volume 90.4 fL (81-99); Mean Platelet Vol. 11.6 fl (6.2-12.0); NRBC Flagged by Analyzer 0 % (0-5); Platelet Count 240 K/mm3 (150-450); RBC Distribution Width CV 12.8 % (11.6-14.6); RBC Distribution Width SD 42.3 fl (35.1-43.9); Red Blood Count 4.08 M/mm3 (4.2-5.4); White Blood Count 6.5 K/mm3 (4.4-11.0)
[2025-02-21 16:19] LABS: AST(SGOT) 48 U/L (<=31); Alanine Aminotransfer ALT/SGPT 33 U/L (<=34); Albumin, Serum 4.6 g/dL (3.5-5.0); Alkaline Phosphatase 63 U/L (35-104); Anion Gap 11 (7-18); BUN 14 mg/dL (4-19); BUN/Creat Ratio 11.0 RATIO (10-20); Calcium,Total 9.5 mg/dL (7.6-11.0); Carbon Dioxide 28.8 mmol/L (20.0-29.0); Chloride 103 mmol/L (96-106); Globulin 2.5 g/dL (2.2-4.2); Glucose 78 mg/dL (70-99); Potassium 4.0 mmol/L (3.5-5.1)
== END | disposition home or self-care (01) ==
LOC: MTLAB 13:34
PROVIDERS: PCP Nurse Practitioner Family; Referring Provider Internal Medicine Rheumatology; Visit Provider Internal Medicine Rheumatology
DX: M05.79 Rheumatoid arthritis with rheumatoid factor of multiple sites without organ or systems involvement (principal); Z79.899 Other long term (current) drug therapy
CPT/HCPCS: 36415; 80053; 85025